=== PATIENT | male | born 1935 | race Caucasian/White ===

== ENCOUNTER 2016-06-13 09:04 | Inpatient (IN) | payer MEDICARE, OTHER ==
[2016-06-13] VITALS (7 sets, daily range): BP systolic 102–115; BP diastolic 61–79; PULSE 75–95; TEMP 36.2–36.6; O2SAT 90–95; Ht 175.3 cm; Wt 76.7 kg
[~2016-06-13] VITALS: Ht 175.3 cm; Wt 76.7 kg
[~2016-06-13 09:04] MED LIST: AMLO-110 PO; AMOX500C3 PO; ASPI81TA21 PO; CRS/10 PO; LISI-725 PO; METO-217 PO; PRLSR20 PO
[2016-06-13] MEDS ORDERED: ALBUT/IPRATROP 3MG/0.5MG NEB 3 ML VIAL INH STA (09:47)
[2016-06-13 09:57] LABS: BASO % 0.8 %; BASO ABS # 0.08 K/uL (0-0.2); COMPLETE YES; EOS % 0.5 %; HEMATOCRIT 40.7 % (42-52); IG% 0.3 %; LYMPH % 11.1 %; LYMPH ABS # 1.11 K/uL (1.2-3.4); MEAN CELL VOLUME 90.4 fL (80-100); MEAN CORPUSCULAR HEMOGLOBIN 31.3 pg (25-34); MEAN CORPUSCULAR HGB CONC 34.6 g/dl (32-36); MEAN PLATELET VOLUME 11.1 fL (7.4-10.4); MONO % 8.4 %; NEUT % 78.9 %; PLATELET COUNT 331 K/uL (130-400); WHITE BLOOD COUNT 9.97 K/uL (4.8-10.8)
[2016-06-13] MEDS ORDERED: METO1TAB69 PO (09:58)
[2016-06-13] MEDS ORDERED: WARF5TAB7 PO (09:58)
[2016-06-13 10:05] LABS: ALT/SGPT 20 U/L (12-78); BLOOD UREA NITROGEN 30 mg/dl (7-18); BUN/CREATININE RATIO 19.7 (10-20); CALCIUM 9.3 mg/dl (8.5-10.1); CARBON DIOXIDE 21 mmol/L (21-32); CHLORIDE 105 mmol/L (98-107); GLUCOSE 204 mg/dl (70-99); MAGNESIUM 1.7 mg/dl (1.8-2.4); POTASSIUM 4.1 mmol/L (3.5-5.1); SODIUM 138 mmol/L (136-145)
[2016-06-13 10:09] LABS: PARTIAL THROMBOPLASTIN RATIO 1.4; PROTHROMBIN TIME (PATIENT) 55.8 SECONDS (9.0-12.0)
[2016-06-13 10:10] LABS: ALB/GLOB RATIO 0.9 (0.9-2); ALKALINE PHOSPHATASE 116 U/L (45-117); AST/SGOT 21 U/L (15-37); INR 4.9 (0.9-1.1)
[2016-06-13] MEDS ORDERED: PIPERACILLIN/TAZOBACTAM 4.5 GM/100ML D5W IV STA (10:16)
[2016-06-13] MEDS ORDERED: FUROSEMIDE 40 MG/4 ML VIAL IV STA (10:16)
--- NOTE | 2016-06-13 10:18 | DIAGNOSTIC IMAGING REPORT ---
SINGLE VIEW CHEST CLINICAL HISTORY: Dyspnea. FINDINGS: An AP, portable, upright chest radiograph is compared to study dated 07/15/2014. The examination is degraded by portable technique and patient rotation. There is evidence of previous cardiac valve surgery. A 2-lead cardiac AICD is unchanged in position and partially obscures the left lower chest. Epicardial pacing leads are noted. The heart is enlarged and there is atherosclerotic calcification of the thoracic aorta. There is pulmonary vascular congestion with mild interstitial edema. There are small pleural effusions with bibasilar atelectasis. No pneumothorax is seen. The skeletal structures are osteopenic. The bony thorax is grossly intact. IMPRESSION: 1. Cardiomegaly and AICD with evidence of congestive failure and mild interstitial edema. 2. Small pleural effusions with bibasilar atelectasis. Electronically signed by: Jorden Matthews M.D. 06/13/2016 10:17 AM Dictated Date/Time: 06/13/2016 10:16 AM
[2016-06-13] MEDS ORDERED: NITROGLYCERIN 0.4 MG SL PER TAB CHARGE SL PRN (11:30)
[2016-06-13] MEDS ORDERED: ACETAMINOPHEN 325 MG TAB PO PRN (11:30)
[2016-06-13] MEDS ORDERED: ONDANSETRON INJ 2 MG/ML 2 ML VIAL IV PRN (11:30)
--- NOTE | 2016-06-13 11:39 | History and Physical ---
History & Physical Date & Time of Service: Jun 13, 2016 at 11:38 Chief Complaint: SOB Primary Care Physician: Jared Godoy PA-C History of Present Illness Source: patient Mr. 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 He states his pacemaker was adjusted 2 weeks ago and he started to notice the symptoms since then. He also denotes to have intermittent dry cough and noticed to have b/l leg swelling. Denies any history of orthopnea, PND , chest pain, palpitations, dizziness, fever, chills, change in bowel/bladder habits. He was found to have oxygen sats in 80s while in ED which improved with 2L nasal cannula. Past Medical/Surgical History Medical Problems: (1) Benign hypertension Status: Chronic (2) Chest pain Status: Resolved (3) Chronic congestive heart failure Status: Chronic (4) Hyperlipidemia Status: Chronic (5) mitral valve repair Status: Chronic PSH: 1. Mitral valve repair with triangular resection of P2 and placement of a 29- mm Rico ring by [facility] [address] [facility] in 2012. 2. Concomitant patent foramen ovale patch closure. 3. Colonoscopy. 4. Dual-chamber Medtronic permanent pacemaker placement. Family History FH: heart disease MOTHER Social History Smoking Status: Former Smoker (Quit many years ago) Drug Use: none Marital Status: Immunizations History of Influenza Vaccine: No History of Tetanus Vaccine?: No History of Pneumococcal: Unknown History of Hepatitis B Vaccine: No Allergies Coded Allergies: No Known Allergies (Unverified , 07/14/14) pt Home Medications Scheduled Amlodipine (Norvasc), 5 MG PO DAILY Amoxicillin (Amoxil), 2,000 MG PO DIRECTED Aspirin Enteric Coated (Ecotrin Or Generic), 81 MG PO DAILY Lisinopril (Zestril), 20 MG PO DAILY Metoprolol Succ (Toprol Xl) (Toprol-Xl ), 100 MG PO DAILY Omeprazole (Prilosec), 20 MG PO DAILY Rosuvastatin Calcium (Crestor), 10 MG PO DAILY Warfarin Sod (Jantoven), 5 MG PO DAILY Review of Systems See HPI for pertinent positives & negatives. A total of 10 systems reviewed and were otherwise negative. Physical Exam Vital Signs Date Time Temp Pulse Resp B/P Pulse Ox O2 Delivery O2 Flow Rate FiO2 06/13/16 10:50 90 Room Air 06/13/16 10:47 90 16 127/79 90 Room Air 06/13/16 09:37 91 Nasal Cannula 3.0 06/13/16 09:28 87 06/13/16 09:28 85 Room Air 06/13/16 09:28 36.7 90 25 122/81 84 Room Air 06/13/16 09:25 91 General Appearance: WD/WN, no apparent distress Head: normocephalic, atraumatic Eyes: normal inspection, PERRL, EOMI, sclerae normal ENT: normal ENT inspection, hearing grossly normal Neck: supple, no JVD, trachea midline Respiratory/Chest: chest non-tender, normal breath sounds, no respiratory distress, no accessory muscle use, + crackles Cardiovascular: regular rate, rhythm, no murmur, + pertinent finding (B/L trace leg edema) Abdomen/GI: normal bowel sounds, non tender, soft, no organomegaly Back: normal inspection, normal range of motion Extremities/Musculoskelatal: normal inspection, no calf tenderness, + pedal edema Neurologic/Psych: spanish medical interpreter II-XII nml as tested, no motor/sensory deficits, alert, normal mood/affect, normal reflexes, oriented x 3 Skin: normal color, warm/dry Lymphatic: no adenopathy Diagnostics Laboratory Results Results Past 24 Hours Test 06/13/16 08:30 06/13/16 11:26 06/13/16 11:36 Range/Units White Blood Count 9.97 4.8-10.8 K/uL Red Blood Count 4.50 4.7-6.1 M/uL Hemoglobin 14.1 14.0-18.0 g/dL Hematocrit 40.7 42-52 % Mean Corpuscular Volume 90.4 80-100 fL Mean Corpuscular Hemoglobin 31.3 25-34 pg Mean Corpuscular Hemoglobin Concent 34.6 32-36 g/dl Platelet Count 331 130-400 K/uL Mean Platelet Volume 11.1 7.4-10.4 fL Neutrophils (%) (Auto) 78.9 % Lymphocytes (%) (Auto) 11.1 % Monocytes (%) (Auto) 8.4 % Eosinophils (%) (Auto) 0.5 % Basophils (%) (Auto) 0.8 % Neutrophils # (Auto) 7.86 1.4-6.5 K/uL Lymphocytes # (Auto) 1.11 1.2-3.4 K/uL Monocytes # (Auto) 0.84 0.11-0.59 K/uL Eosinophils # (Auto) 0.05 0-0.5 K/uL Basophils # (Auto) 0.08 0-0.2 K/uL RDW Standard Deviation 48.3 36.4-46.3 fL RDW Coefficient of Variation 14.7 11.5-14.5 % Immature Granulocyte % (Auto) 0.3 % Immature Granulocyte # (Auto) 0.03 0.00-0.02 K/uL Prothrombin Time 55.8 9.0-12.0 SECONDS Prothromb Time International Ratio 4.9 0.9-1.1 Activated Partial Thromboplast Time 37.3 21.0-31.0 SECONDS Partial Thromboplastin Ratio 1.4 Sodium Level 138 136-145 mmol/L Potassium Level 4.1 3.5-5.1 mmol/L Chloride Level 105 98-107 mmol/L Carbon Dioxide Level 21 21-32 mmol/L Anion Gap 12.0 3-11 mmol/L Blood Urea Nitrogen 30 7-18 mg/dl Creatinine 1.50 0.60-1.40 mg/dl Est Creatinine Clear Calc Drug Dose 38.0 ml/min Estimated GFR () 49.5 Estimated GFR (Non- 42.7 BUN/Creatinine Ratio 19.7 10-20 Random Glucose 204 70-99 mg/dl Calcium Level 9.3 8.5-10.1 mg/dl Magnesium Level 1.7 1.8-2.4 mg/dl Total Bilirubin 2.9 0.2-1 mg/dl Aspartate Amino Transf (AST/SGOT) 21 15-37 U/L Alanine Aminotransferase (ALT/SGPT) 20 12-78 U/L Alkaline Phosphatase 116 45-117 U/L Troponin I < 0.015 0-0.045 ng/ml Pro-B-Type Natriuretic Peptide 51454 0-1800 pg/ml Total Protein 8.2 6.4-8.2 gm/dl Albumin 3.9 3.4-5.0 gm/dl Globulin 4.3 2.5-4.0 gm/dl Albumin/Globulin Ratio 0.9 0.9-2 Microbiology Results 06/13/16 Blood Culture, Received Pending 06/13/16 Blood Culture, Received Pending Diagnostic Radiology CXR: 1. Cardiomegaly and AICD with evidence of congestive failure and mild interstitial edema. 2. Small pleural effusions with bibasilar atelectasis. EKG Sinus rhythm with first degree AV block, frequent PVCs and occasional atrial pacing, and underlying RBBB Impression Assessment and Plan Acute Hypoxic respiratory failure Acute Decompensated Systolic heart failure Patient presented with SOB on exertion, leg swelling after pacemaker adjustment H/O Ischemic cardiomyopathy CXR:showed findings suggestive of CHF Start IV diuretics check ECHO, troponin Consult cardiology Monitor I/Os, daily weight Oxygen support Obtain pacemaker interrogation Continue Home meds Supratherapeutic INR: Hold coumadin for now Monitor INR Will resume when appropriate Elevated Cr levels: ? Underlying CKD Avoid Nephrotoxic agents Monitor renal function Cr levels would likely worsen with need for IV diuretics Will hold lisinopril if Cr levels worsen H/O Severe MR S/P repair with subsequent mitral stenosis Stable Continue home meds Check ECHO H/O PFO S/P repair H/O NSVT/P.afib, Sick sinus S/P Pacemaker Pacemaker interrogation Currently in sinus Monitor electrolytes Continue BB Coumadin held secondary to increased INR HTN: Stable Continue to monitor HLP: Continue statins DVT Px: SCDs INR supratherapeutic CODE STATUS: Full code DISPOSITION: Continue to monitor in Telemetry Advanced Directives Existing Living Will: Yes Existing Power of Airplane Pilot Supervisor: No VTE Prophylaxis VTE Risk Assessment Done? Y/N: Yes Risk Level: High
[2016-06-13] MEDS ORDERED: PNEUMOCOCCAL ADMINISTRATION CHARGE ONE (13:15)
[2016-06-13] MEDS ORDERED: PNEUMOCOCCAL POLYSACCHARIDES 25 MCG/0.5 ML VIAL/SYR IM. ONE (13:15)
[2016-06-13 13:30] LABS: INFLUENZA A PCR Neg for Influ A (NEG); INFLUENZA B PCR Neg for Influ B (NEG)
[2016-06-13] MEDS ORDERED: MAGNESIUM SULFATE 1GM / D5W 1 GM in PREMIXED IN D5W 100 ML IV ONE (14:00)
--- NOTE | 2016-06-13 14:15 | EMERGENCY ROOM VISIT NOTE ---
History Report prepared by Pam: Anna Mccoy Under the Supervision of: Dr. Jorden Pryor M.D. First contact with patient: 09:40 Chief Complaint: SHORTNESS OF BREATH Stated Complaint: SOB History of Present Illness The patient is a 80 year old male who presents to the Emergency Room with complaints of persistent shortness of breath over a week and a half. It is worse with exertion. The patient does not usually wear oxygen at home. Upon arrival, his oxygen saturation was as low as 84 on room air. He also complains of an occasional nonproductive cough. He reports that he has minimally increased leg swelling. The patient states that he has a monitor on his pacemaker and is in the process of having adjustments made. He states that his symptoms seemed to start when he had the monitor placed. The patient recently was taken off of Lisinopril because he was having dizziness. He does not have a history of pneumonia or heart failure. Denies fevers, chest pain, or other complaints. He is scheduled to see Jared Godoy of Cardiology tomorrow. He is unsure if he had a flu shot this year. Source of History: patient Onset: a week and a half ago Position: other (global) Quality: other (shortness of breath) Timing: other (persistent) Modifying Factors (Worsening): exertion Associated Symptoms: + cough (occasional, nonproductive), No chest pain, No fevers Note: Other symptoms: minimally increased leg swelling Review of Systems See HPI for pertinent positives & negatives. A total of 10 systems reviewed and were otherwise negative. Past Medical & Surgical Medical Problems: (1) Benign hypertension (2) Chest pain (3) Chronic congestive heart failure (4) Hyperlipidemia (5) mitral valve repair Family History No pertinent family history stated. Social History Smoking Status: Former Smoker Marital Status: Housing Status: lives with significant other Current/Historical Medications Scheduled Amlodipine (Norvasc), 5 MG PO DAILY Amoxicillin (Amoxil), 2,000 MG PO DIRECTED Aspirin Enteric Coated (Ecotrin Or Generic), 81 MG PO DAILY Lisinopril (Zestril), 20 MG PO DAILY Metoprolol Succ (Toprol Xl) (Toprol-Xl ), 100 MG PO DAILY Omeprazole (Prilosec), 20 MG PO DAILY Rosuvastatin Calcium (Crestor), 10 MG PO DAILY Warfarin Sod (Jantoven), 5 MG PO DAILY Allergies Coded Allergies: No Known Allergies (Unverified , 07/14/14) pt Physical Exam Vital Signs Date Time Temp Pulse Resp B/P Pulse Ox O2 Delivery O2 Flow Rate FiO2 06/13/16 10:50 90 Room Air 06/13/16 10:47 90 16 127/79 90 Room Air 06/13/16 09:37 91 Nasal Cannula 3.0 06/13/16 09:28 87 06/13/16 09:28 85 Room Air 06/13/16 09:28 36.7 90 25 122/81 84 Room Air 06/13/16 09:25 91 Physical Exam GENERAL: Patient is in no acute distress. HEENT: No acute trauma, normocephalic atraumatic, mucous membranes moist, no nasal congestion, no scleral icterus. NECK: No stridor, no adenopathy, no meningismus, trachea is midline. LUNGS: Crackles bilaterally, no wheezing, breath sounds diminished but equal. HEART: Without murmurs gallops or rubs, regular rate and rhythm. ABDOMEN: Soft, nontender, bowel sounds positive, no hernias, no peritonitis. EXTREMITIES: No cyanosis, mild bilateral pedal edema, full range of motion of all the joints without pain or difficulty, no signs for acute trauma. NEUROLOGIC: Oriented x 3, no acute motor or sensory deficits, no focal weakness. SKIN: No rash, no jaundice, no diaphoresis. Medical Decision & Procedures ER Provider Diagnostic Interpretation: Radiology results and stated below per my review and radiologist interpretation: SINGLE VIEW CHEST CLINICAL HISTORY: Dyspnea. FINDINGS: An AP, portable, upright chest radiograph is compared to study dated 07/15/2014. The examination is degraded by portable technique and patient rotation. There is evidence of previous cardiac valve surgery. A 2-lead cardiac AICD is unchanged in position and partially obscures the left lower chest. Epicardial pacing leads are noted. The heart is enlarged and there is atherosclerotic calcification of the thoracic aorta. There is pulmonary vascular congestion with mild interstitial edema. There are small pleural effusions with bibasilar atelectasis. No pneumothorax is seen. The skeletal structures are osteopenic. The bony thorax is grossly intact. IMPRESSION: 1. Cardiomegaly and AICD with evidence of congestive failure and mild interstitial edema. 2. Small pleural effusions with bibasilar atelectasis. Electronically signed by: Jorden Matthews M.D. 06/13/2016 10:17 AM Dictated Date/Time: 06/13/2016 10:16 AM Laboratory Results 06/13/16 08:30 Red Blood Count 4.50, Mean Corpuscular Volume 90.4, Mean Corpuscular Hemoglobin 31.3, Mean Corpuscular Hemoglobin Concent 34.6, Mean Platelet Volume 11.1, Neutrophils (%) (Auto) 78.9, Lymphocytes (%) (Auto) 11.1, Monocytes (%) (Auto) 8.4, Eosinophils (%) (Auto) 0.5, Basophils (%) (Auto) 0.8, Neutrophils # (Auto) 7.86, Lymphocytes # (Auto) 1.11, Monocytes # (Auto) 0.84, Eosinophils # (Auto) 0.05, Basophils # (Auto) 0.08 06/13/16 08:30 Test 06/13/16 08:30 06/13/16 11:15 White Blood Count 9.97 K/uL (4.8-10.8) Red Blood Count 4.50 M/uL (4.7-6.1) Hemoglobin 14.1 g/dL (14.0-18.0) Hematocrit 40.7 % (42-52) Mean Corpuscular Volume 90.4 fL (80-100) Mean Corpuscular Hemoglobin 31.3 pg (25-34) Mean Corpuscular Hemoglobin Concent 34.6 g/dl (32-36) Platelet Count 331 K/uL (130-400) Mean Platelet Volume 11.1 fL (7.4-10.4) Neutrophils (%) (Auto) 78.9 % Lymphocytes (%) (Auto) 11.1 % Monocytes (%) (Auto) 8.4 % Eosinophils (%) (Auto) 0.5 % Basophils (%) (Auto) 0.8 % Neutrophils # (Auto) 7.86 K/uL (1.4-6.5) Lymphocytes # (Auto) 1.11 K/uL (1.2-3.4) Monocytes # (Auto) 0.84 K/uL (0.11-0.59) Eosinophils # (Auto) 0.05 K/uL (0-0.5) Basophils # (Auto) 0.08 K/uL (0-0.2) RDW Standard Deviation 48.3 fL (36.4-46.3) RDW Coefficient of Variation 14.7 % (11.5-14.5) Immature Granulocyte % (Auto) 0.3 % Immature Granulocyte # (Auto) 0.03 K/uL (0.00-0.02) Prothrombin Time 55.8 SECONDS (9.0-12.0) Prothromb Time International Ratio 4.9 (0.9-1.1) Activated Partial Thromboplast Time 37.3 SECONDS (21.0-31.0) Partial Thromboplastin Ratio 1.4 Anion Gap 12.0 mmol/L (3-11) Est Creatinine Clear Calc Drug Dose 38.0 ml/min Estimated GFR () 49.5 Estimated GFR (Non- 42.7 BUN/Creatinine Ratio 19.7 (10-20) Calcium Level 9.3 mg/dl (8.5-10.1) Magnesium Level 1.7 mg/dl (1.8-2.4) Total Bilirubin 2.9 mg/dl (0.2-1) Aspartate Amino Transf (AST/SGOT) 21 U/L (15-37) Alanine Aminotransferase (ALT/SGPT) 20 U/L (12-78) Alkaline Phosphatase 116 U/L (45-117) Pro-B-Type Natriuretic Peptide 97322 pg/ml (0-1800) Total Protein 8.2 gm/dl (6.4-8.2) Albumin 3.9 gm/dl (3.4-5.0) Globulin 4.3 gm/dl (2.5-4.0) Albumin/Globulin Ratio 0.9 (0.9-2) Procalcitonin < 0.05 ng/mL (0-0.5) Influenza Type A (RT-PCR) Neg for Influ A (NEG) Influenza Type B (RT-PCR) Neg for Influ B (NEG) Laboratory results reviewed by me. Medications Administered Medications (Trade) Dose Ordered Sig/Genoveva Route Start Time Stop Time Status Last Admin Dose Admin Albuterol/ Ipratropium (Duoneb) 3 ml NOW STAT INH 06/13/16 09:47 06/13/16 09:50 DC 06/13/16 10:10 3 ML Furosemide (Lasix Inj) 40 mg NOW STAT IV 06/13/16 10:16 06/13/16 10:18 DC 06/13/16 11:04 40 MG Piperacillin Sod/ Tazobactam Sod (Zosyn Iv) 4.5 gm NOW STAT IV 06/13/16 10:16 06/13/16 10:18 DC 06/13/16 11:04 4.5 GM ECG Indication: SOB/dyspnea Rate (beats per minute): 87 Rhythm: sinus rhythm Findings: 1st degree AV block, PAC, PVC, RBBB, no acute ischemic change Comparison ECG Date: 07/14/14 Change: PACs and PVCs are now present ED Course 0945: The patient was evaluated in room A4. A complete history and physical exam was performed. Ordered DuoNeb 3 ml INH. 1016: Ordered Zosyn 4.5 gm IV, Lasix 40 mg IV. 1029: I discussed the case with CASSIDY [facility]. The patient will be evaluated for further management. 1052: Upon reexamination the patient is resting comfortably. I discussed results and treatment plan with the patient. He verbalizes agreement and understanding. The patient will be evaluated for further management. Medical Decision Differential includes but is not limited to CHF, pneumonia, bronchitis, cardiac ischemia, anemia, electrolyte imbalance, PE. There is no leukocytosis or concerning anemia. Renal panel testing does not show kidney failure. Magnesium was low at 1.7. There was no hepatitis. INR was over the therapeutic window for someone using Coumadin. Blood cultures are pending. Influenza testing was negative. EKG shows a sinus rhythm, no acute ischemia. Cardiac enzyme testing times one is not consistent with acute cardiac injury. Chest x-ray shows CHF, no pneumonia or pneumothorax. BNP was quite elevated consistent with fluid overload. The patient was given a DuoNeb, IV Zosyn. He was given IV Lasix. The patient requires O2 supplementation to prevent hypoxia. He is in heart failure and has a low magnesium level. He requires diuresis and some electrolyte replacement. Admission/observation is warranted. I spoke to the patient and case management. The on-call hospitalist was consulted. Consults Time Called: [phone] Consulting Physician: [facility]ASSIDY [facility] Returned Call: [phone] I discussed the case with her. The patient will be evaluated for further management. Impression Primary Impression: Congestive heart failure Additional Impressions: SOB (shortness of breath) on exertion Hypoxia Scribe Attestation The scribe's documentation has been prepared under my direction and personally reviewed by me in its entirety. I confirm that the note above accurately reflects all work, treatment, procedures, and medical decision making performed by me. Departure Information Dispostion Being Evaluated By Hospitalist Referrals Merlyn Kingsley M.D. (PCP) Patient Instructions My [facility] Problem Qualifiers
--- NOTE | 2016-06-13 16:42 | CARDIOLOGY CONSULTATION ---
DATE OF CONSULTATION: 06/13/2016 CONSULTATION REQUESTED BY: Dr. Camargo. REASON FOR CONSULTATION: Acute decompensated LV systolic heart failure. HISTORY OF PRESENT ILLNESS: Mr. Huizar is a very pleasant yet cardiovascularly complex 80-year-old gentleman who normally follows with Jared Godoy of our cardiology practice. He presented to the [facility] Emergency Department on 06/13/2016 with a complaint of worsening dyspnea on exertion. The patient states his symptoms started approximately 2 weeks ago after pacemaker adjustment. He states that ever since then he has been having difficulty walking any significant distance without even having to stop and catch his breath. This is very unusual for the patient, who despite his age, remains very physically active and usually has no limitations whatsoever. He denies any other symptoms of chest pain, palpitations, lightheadedness, dizziness, or syncope. He states he has been having some puffiness around his ankles. Otherwise, he has been compliant with all of his medications and states his diet has not changed and he has not increased any salt intake. He has had no orthopnea or no episodes of diarrhea. PAST SURGICAL HISTORY: 1. Mitral valve repair with triangular resection of P2 and placement of a 29-mm Rico ring by [facility] in 2012. 2. Concomitant patent foramen ovale patch closure. 3. Colonoscopy. 4. Dual-chamber Medtronic permanent pacemaker placement. MEDICAL ILLNESSES: 1. Severe mitral regurgitation with a flail P2 leaflet, status post repair with subsequent mitral stenosis. 2. PFO, status post repair. 3. Severe mitral stenosis. 4. Nonischemic cardiomyopathy, EF 20%-25%. 5. Frequent premature ventricular contractions. 6. Nonsustained supraventricular tachycardia, recently found on pacemaker interrogation. 7. Sick sinus syndrome, status post permanent pacemaker placement. 8. Hypertension. 9. Dyslipidemia. 10. Arthritis. 11. Paroxysmal atrial fibrillation. FAMILY HISTORY: Noncontributory. SOCIAL HISTORY: The patient has a very remote tobacco use history, quit in 1971. He drinks 2 beers a day. Denies any recreational drug use. REVIEW OF SYSTEMS: As per HPI, all other review of systems reviewed and negative at this time. ALLERGIES: No known drug allergies. MEDICATIONS AN OUTPATIENT: 1. Toprol-XL 100 mg daily. 2. Amlodipine 5 mg daily. 3. Coumadin as directed by the Coumadin clinic. 4. Lisinopril 20 mg daily. 5. Crestor 10 mg daily. 6. Amoxicillin prior to dental procedures. 7. Aspirin 81 mg daily. PHYSICAL EXAMINATION: VITALS: Temperature 36.6, pulse 77, respiratory rate 12, and blood pressure 102/61. GENERAL: Awake, alert, and oriented x3, in no acute distress. HEENT: Normocephalic and atraumatic. Pupils equal, round, and reactive to light and accommodation. Extraocular muscles intact. Anicteric sclerae. Moist mucous membranes. NECK: No JVD and no bruit. CARDIOVASCULAR: Regular, but distant. Unable to appreciate murmurs, rubs or gallops. PULMONARY: Decreased air movement in the bilateral bases with scant crackles. No rales or rhonchi. ABDOMEN: Bowel sounds x4, soft. No rebound, guarding, or tenderness. No organomegaly. EXTREMITIES: No clubbing or cyanosis. +1 pedal pulses bilaterally with +1 bilateral lower extremity pitting edema. SKIN: Warm and dry. Device interrogation today reveals an appropriately functioning dual-chamber permanent pacemaker placement with nonsustained runs of nonsustained supraventricular tachycardia. A 12-lead EKG performed in the Emergency Department independently reviewed at this time, shows sinus rhythm with first degree AV block, frequent PVCs and occasional atrial pacing, and underlying right bundle-branch block. Chest x-ray was read as cardiomegaly with an AICD and evidence of congestive heart failure and mild interstitial edema. LABORATORY STUDIES OF SIGNIFICANCE: Sodium 138, potassium 4.1, BUN 30, and creatinine 1.5. ProBNP of 23,000. IMPRESSION: 1. Acute decompensated LV systolic heart failure. 2. Nonischemic cardiomyopathy. 3. Mitral valve repair with subsequent mitral stenosis. 4. Paroxysmal atrial fibrillation. 5. Paroxysmal supraventricular tachycardia. RECOMMENDATIONS: It was my pleasure to see Mr. Huizar in consultation today. I believe that the most prudent course of action at this point would be to aggressively diurese the patient to relieve the volume overload and improve his symptoms. He has been having more frequent paroxysmal supraventricular tachycardic runs as of late upon his device interrogation; however, I doubt that that is the nidus for his decompensation. So, his outpatient doses of metoprolol, amlodipine, lisinopril, aspirin and Crestor will be continued. His electrolytes should be monitored and repleted as necessary and I will follow him closely with you. FLAVIO
[2016-06-13] MEDS: FUROSEMIDE INJ 40 MG in SYRINGE 0 ML IV SCH (17:10)
[2016-06-14] VITALS (9 sets, daily range): BP systolic 98–125; BP diastolic 63–83; PULSE 68–88; TEMP 36.3–37.5; O2SAT 91–98
[2016-06-14 06:32] LABS: BASO % 0.7 %; BASO ABS # 0.06 K/uL (0-0.2); COMPLETE YES; HEMATOCRIT 35.3 % (42-52); LYMPH % 20.1 %; LYMPH ABS # 1.61 K/uL (1.2-3.4); MEAN CELL VOLUME 89.6 fL (80-100); MEAN CORPUSCULAR HGB CONC 34.6 g/dl (32-36); MEAN PLATELET VOLUME 10.5 fL (7.4-10.4); MONO % 11.1 %; NEUT % 65.1 %; PLATELET COUNT 253 K/uL (130-400); RED BLOOD COUNT 3.94 M/uL (4.7-6.1); WHITE BLOOD COUNT 8.02 K/uL (4.8-10.8)
[2016-06-14 06:51] LABS: PROTHROMBIN TIME (PATIENT) 53.4 SECONDS (9.0-12.0)
[2016-06-14 06:57] LABS: INR 4.7 (0.9-1.1)
[2016-06-14 07:12] LABS: BUN/CREATININE RATIO 21.6 (10-20); CALCIUM 8.4 mg/dl (8.5-10.1); CREATININE 1.5 mg/dl (0.60-1.40); MAGNESIUM 1.9 mg/dl (1.8-2.4); POTASSIUM 3.4 mmol/L (3.5-5.1)
[2016-06-14] MEDS: LISINOPRIL 20 MG TAB PO SCH (08:28)
[2016-06-14] MEDS: AMLODIPINE BESYLATE 5 MG TAB PO SCH (08:28)
[2016-06-14] MEDS: ASPIRIN 81 MG ECTAB PO SCH (08:28)
[2016-06-14] MEDS: METOPROLOL SUCC 50MG EXT REL TAB PO SCH (08:29)
[2016-06-14] MEDS: FUROSEMIDE INJ 40 MG in SYRINGE 0 ML IV SCH ×2 (08:48→17:45)
[2016-06-14] MEDS ORDERED: FUROSEMIDE INJ 40 MG in SYRINGE 0 ML IV SCH (09:00)
[2016-06-14] MEDS ORDERED: POTASSIUM CHLORIDE 10 MEQ TABCR PO STA (09:27)
[2016-06-14] MEDS ORDERED: POTASSIUM CITRATE 10 MEQ TAB PO ONE (10:00)
--- NOTE | 2016-06-14 10:11 | PROGRESS NOTE ---
DATE: 06/14/2016 FOLLOWUP VISIT SUBJECTIVE: Mr. Huizar is an 80-year-old male who is status post mitral valve repair in 2012 and has nonischemic cardiomyopathy. He is status post dual-chamber pacemaker. He was admitted with congestive heart failure. Prior to his admission, his pacemaker had been interrogated and found to have nonsustained supraventricular tachycardia. A ZIO patch was placed which he is currently wearing and is scheduled to come off on Saturday. These arrhythmias could be either paroxysmal atrial fibrillation or possibly AVRT. Over the past 24 hours, he has been diuresed and actually feels much improved. OBJECTIVE: GENERAL: He is alert and oriented, in no acute distress. VITAL SIGNS: Blood pressure is 117/76, pulse is regular at 75. He is afebrile. HEENT: He is normocephalic. Pupils are equal and reactive to light. Extraocular muscles are intact bilaterally. NECK: Neck veins are flat. Carotids have good upstrokes bilaterally without bruits. Thyroid is nonpalpable. RESPIRATORY: Breath sounds equal bilaterally and clear to auscultation. CARDIOVASCULAR: Heart has a regular rhythm. Normal S1, S2. No S3, S4. No cardiac rubs or murmurs. GASTROINTESTINAL: Abdomen is soft, nontender, without organomegaly. EXTREMITIES: Free of edema, digit clubbing, or cyanosis. NEUROLOGIC: Grossly intact. SKIN: Warm to touch. LYMPH NODES: Negative to palpation. LABORATORY DATA: Hemoglobin is 12.2. Potassium is 3.4. Creatinine is 1.5. Cardiac markers are negative. EKG on admission reveals sinus rhythm with a right bundle-branch block. IMPRESSION: 1. Decompensated systolic heart failure. 2. Status post mitral valve repair. 3. History of nonischemic cardiomyopathy with an estimated left ventricular ejection fraction of 20-25%. 4. Nonsustained supraventricular tachycardia recently found on pacemaker interrogation. 5. Permanent pacemaker for sick sinus syndrome. 6. History of paroxysmal atrial fibrillation. RECOMMENDATIONS: I would continue to treat the patient for his decompensated congestive heart failure. Unless he has a sustained arrhythmia while in the hospital, I would recommend that he just complete his ZIO patch monitoring and we will follow up on any arrhythmias as an outpatient. I will supplement his potassium which is low today due to the diuresis.
[2016-06-14] MEDS: PANTOprazole SOD 40 MG TAB PO SCH (10:18)
[2016-06-14] MEDS: ROSUVASTATIN CALCIUM 10 MG TAB PO SCH (10:19)
--- NOTE | 2016-06-14 12:35 | ECHOCARDIOGRAM REPORT ---
*NOTICE TO RECEIVING REPUBLICAN AGENCY This information is strictly Confidential and protected under [place] law. [place] law prohibits you from making any further disclosure of this information unless further disclosure is expressly permitted by the written consent of the person to whom it pertains or is authorized by law. A general authorization for the release of medical or other information is not sufficient for this purpose. Hospital accepts no responsibility if the information is made available to any other person, INCLUDING THE PATIENT. Interpretation Summary * Name: JUDAH SHELDON Study Date: 06/14/2016 06:56 AM BP: 115/79 mmHg * Patient Location: [facility]\S\N288\S\1 HR: 95 * : 1935 (M/d/yyyy) Gender: Male Height: 69 in * Age: 80 yrs Ethnicity: [place] Weight: 168 lb * Ordering Physician: Handy Camargo * Performed By: Tracy Pelayo RDCS * * Reason For Study: CHF * BSA: 1.9 m2 * -- Conclusions -- * Aortic valve sclerosis mild, without significant aortic valvular stenosis. * The left ventricle is moderately dilated. * Left ventricular systolic function is severely reduced. * Ejection Fraction = 25-30%. * The right ventricle is moderately dilated. * The right ventricular systolic function is moderately reduced. * The left atrium is moderately dilated. * The right atrium is moderately dilated. * An annuloplasty ring is noted in the mitral position. * There is mild mitral stenosis. * Significant mitral regurgitation is absent. * There is moderate tricuspid regurgitation. Procedure Details * A complete two-dimensional transthoracic echocardiogram was performed (2D, M-mode, Doppler and color flow Doppler). Left Ventricle * The left ventricle is moderately dilated. * There is global thinning of the left ventricular trevizo. * Left ventricular systolic function is severely reduced. * Ejection Fraction = 25-30%. Right Ventricle * The right ventricle is moderately dilated. * There is a pacemaker lead in the right ventricle. * The right ventricular systolic function is moderately reduced. Atria * The left atrium is moderately dilated. * The right atrium is moderately dilated. * The interatrial septum is intact with no evidence for an atrial septal defect. Mitral Valve * The mitral valve leaflets appear thickened, but open well. * There is mild mitral stenosis. * Significant mitral regurgitation is absent. * An annuloplasty ring is noted in the mitral position. Tricuspid Valve * The tricuspid valve leaflets are thickened and/or calcified, but open well. * There is moderate tricuspid regurgitation. Aortic Valve * Aortic valve sclerosis mild, without significant aortic valvular stenosis. * The aortic valve is trileaflet. * Trace aortic regurgitation. Pulmonic Valve * The pulmonic valve is not well visualized. * Mild pulmonic valvular regurgitation. Great Vessels * The aortic root and proximal ascending aorta are normal sized. Pericardium/Pleural * There is no pericardial effusion. MMode 2D Measurements and Calculations IVSd 1.0 cm LVIDd 5.5 cm LVIDs 4.6 cm LVPWd 0.93 cm IVS/LVPW 1.1 FS 16.0 % EDV(Teich) 146.8 ml ESV(Teich) 97.9 ml EF(Teich) 33.3 % EDV(cubed) 165.4 ml ESV(cubed) 98.0 ml EF(cubed) 40.7 % LV mass(C)d 208.3 grams LV mass(C)dI 108.6 grams/m\S\2 CO(Teich) 3.3 l/min CI(Teich) 1.7 l/min/m\S\2 SV(Teich) 48.9 ml SI(Teich) 25.5 ml/m\S\2 CO(cubed) 4.5 l/min CI(cubed) 2.4 l/min/m\S\2 SV(cubed) 67.4 ml SI(cubed) 35.1 ml/m\S\2 ACS 1.5 cm asc Aorta Diam 3.0 cm Ao Arch Diam (Proximal trans.) 2.9 cm LVOT diam 2.0 cm LVOT area 3.1 cm\S\2 LVAd ap4 31.0 cm\S\2 LVLd ap4 7.8 cm EDV(MOD-sp4) 102.0 ml LVAs ap4 26.4 cm\S\2 LVLs ap4 7.5 cm ESV(MOD-sp4) 79.0 ml EF(MOD-sp4) 22.5 % LVAd ap2 32.3 cm\S\2 LVLd ap2 8.4 cm EDV(MOD-sp2) 102.0 ml LVAs ap2 24.8 cm\S\2 LVLs ap2 7.3 cm ESV(MOD-sp2) 69.0 ml EF(MOD-sp2) 32.4 % CO(MOD-sp4) 1.5 l/min CI(MOD-sp4) 0.80 l/min/m\S\2 SV(MOD-sp4) 23.0 ml SI(MOD-sp4) 12.0 ml/m\S\2 CO(MOD-sp2) 2.2 l/min CI(MOD-sp2) 1.2 l/min/m\S\2 SV(MOD-sp2) 33.0 ml SI(MOD-sp2) 17.2 ml/m\S\2 Doppler Measurements and Calculations MV E max rhina 164.5 cm/sec MV A max rhina 112.4 cm/sec MV E/A 1.5 MV V2 max 168.1 cm/sec MV max PG 11.3 mmHg MV V2 mean 112.1 cm/sec MV mean PG 5.7 mmHg MV V2 VTI 38.6 cm Ao V2 max 86.2 cm/sec Ao max PG 3.0 mmHg Ao max PG (full) 1.2 mmHg KALEB(V,A) 2.4 cm\S\2 KALEB(V,D) 2.4 cm\S\2 LV V1 max PG 1.8 mmHg LV V1 max 66.2 cm/sec MR max rhina 371.0 cm/sec MR max PG 55.1 mmHg MR mean rhina 301.2 cm/sec MR mean PG 38.8 mmHg MR VTI 133.6 cm PA V2 max 39.1 cm/sec PA max PG 0.61 mmHg PA acc slope 280.4 cm/sec\S\2 PA acc time 0.12 sec PI max rhina 198.6 cm/sec PI max PG 15.8 mmHg PI dec slope 61.6 cm/sec\S\2 PI P1/2t 944.0 msec TR max rhina 284.7 cm/sec PA pr(Accel) 23.5 mmHg
--- NOTE | 2016-06-14 14:53 | Progress Note ---
Internal Med Progress Note Date of Service: Jun 14, 2016. Provider Documentation: SUBJECTIVE: Patient is seen and examined at bedside. States his SOB is much improved. Denies any chest pain, dizziness, palpitations. Offers no other complaints. Had an episode of NSVT today. OBJECTIVE: Vital Signs-as noted below General Appearance: WD/WN, no apparent distress Head: normocephalic, atraumatic Eyes: normal inspection, PERRL, EOMI, sclerae normal ENT: normal ENT inspection, hearing grossly normal Neck: supple, no JVD, trachea midline Respiratory/Chest: normal breath sounds, minimal creps, no accessory muscle use Cardiovascular: regular rate, rhythm, no murmur, + pertinent finding (B/L trace leg edema) Abdomen/GI: normal bowel sounds, non tender, soft, no organomegaly Back: normal inspection, normal range of motion Extremities/Musculoskelatal: normal inspection, no calf tenderness, + pedal edema 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 ASSESSMENT & PLAN: Acute Hypoxic respiratory failure Acute Decompensated Systolic heart failure Patient presented with SOB on exertion, leg swelling after pacemaker adjustment H/O Ischemic cardiomyopathy CXR:showed findings suggestive of CHF Continue IV diuretics troponin X2: negative Appreciate cardiology input Monitor I/Os, daily weight Oxygen support PRN Obtain pacemaker interrogation: NSVTs Continue Home meds ECHO: EF:25-30% ZIO patch monitoring to be discontinued on Saturday Supratherapeutic INR: Continue to hold coumadin Monitor INR:4.7 today Will resume when appropriate Elevated Cr levels: ? Underlying CKD Avoid Nephrotoxic agents Monitor renal function Cr levels would likely worsen with need for IV diuretics Will hold lisinopril if Cr levels worsen: currently stable Hypokalemia: Will replace and monitor Mag levels:wnl H/O Severe MR S/P repair with subsequent mitral stenosis Stable Continue home meds ECHO results as below H/O PFO S/P repair H/O NSVT/P.afib, Sick sinus S/P Pacemaker Pacemaker interrogation Currently in sinus Monitor electrolytes Continue BB Coumadin held secondary to increased INR HTN: Stable Continue to monitor HLP: Continue statins DVT Px: SCDs INR supratherapeutic CODE STATUS: Full code DISPOSITION: Continue to monitor in Telemetry PROCEDURES: ECHO: * Aortic valve sclerosis mild, without significant aortic valvular stenosis. * The left ventricle is moderately dilated. * Left ventricular systolic function is severely reduced. * Ejection Fraction = 25-30%. * The right ventricle is moderately dilated. * The right ventricular systolic function is moderately reduced. * The left atrium is moderately dilated. * The right atrium is moderately dilated. * An annuloplasty ring is noted in the mitral position. * There is mild mitral stenosis. * Significant mitral regurgitation is absent. * There is moderate tricuspid regurgitation. Vital Signs: Date Time Temp Pulse Resp B/P Pulse Ox O2 Delivery O2 Flow Rate FiO2 06/14/16 12:00 Room Air 06/14/16 11:46 81 22 106/69 96 74 98/63 06/14/16 11:26 36.3 70 18 105/63 92 06/14/16 07:59 36.5 75 20 117/76 96 Nasal Cannula 2.0 06/14/16 07:55 95 Nasal Cannula 2.0 06/14/16 04:15 Nasal Cannula 06/14/16 00:05 Nasal Cannula 06/13/16 23:17 36.3 75 18 114/76 94 Room Air 06/13/16 20:00 95 Nasal Cannula 2.0 06/13/16 19:40 36.2 81 18 104/67 91 Nasal Cannula 2.0 06/13/16 16:00 95 Nasal Cannula 2.0 06/13/16 15:18 36.6 77 18 102/61 95 Nasal Cannula 2.0 Lab Results: Results Past 24 Hours Test 06/13/16 17:10 06/14/16 05:55 Range/Units Troponin I < 0.015 0-0.045 ng/ml White Blood Count 8.02 4.8-10.8 K/uL Red Blood Count 3.94 4.7-6.1 M/uL Hemoglobin 12.2 14.0-18.0 g/dL Hematocrit 35.3 42-52 % Mean Corpuscular Volume 89.6 80-100 fL Mean Corpuscular Hemoglobin 31.0 25-34 pg Mean Corpuscular Hemoglobin Concent 34.6 32-36 g/dl Platelet Count 253 130-400 K/uL Mean Platelet Volume 10.5 7.4-10.4 fL Neutrophils (%) (Auto) 65.1 % Lymphocytes (%) (Auto) 20.1 % Monocytes (%) (Auto) 11.1 % Eosinophils (%) (Auto) 3.0 % Basophils (%) (Auto) 0.7 % Neutrophils # (Auto) 5.22 1.4-6.5 K/uL Lymphocytes # (Auto) 1.61 1.2-3.4 K/uL Monocytes # (Auto) 0.89 0.11-0.59 K/uL Eosinophils # (Auto) 0.24 0-0.5 K/uL Basophils # (Auto) 0.06 0-0.2 K/uL RDW Standard Deviation 47.5 36.4-46.3 fL RDW Coefficient of Variation 14.6 11.5-14.5 % Immature Granulocyte % (Auto) 0.0 % Immature Granulocyte # (Auto) 0.00 0.00-0.02 K/uL Prothrombin Time 53.4 9.0-12.0 SECONDS Prothromb Time International Ratio 4.7 0.9-1.1 Sodium Level 141 136-145 mmol/L Potassium Level 3.4 3.5-5.1 mmol/L Chloride Level 104 98-107 mmol/L Carbon Dioxide Level 27 21-32 mmol/L Anion Gap 10.0 3-11 mmol/L Blood Urea Nitrogen 32 7-18 mg/dl Creatinine 1.50 0.60-1.40 mg/dl Est Creatinine Clear Calc Drug Dose 38.0 ml/min Estimated GFR () 49.5 Estimated GFR (Non- 42.7 BUN/Creatinine Ratio 21.6 10-20 Random Glucose 97 70-99 mg/dl Calcium Level 8.4 8.5-10.1 mg/dl Magnesium Level 1.9 1.8-2.4 mg/dl Pro-B-Type Natriuretic Peptide 57667 0-1800 pg/ml
[2016-06-14] MEDS ORDERED: POTASSIUM CHLORIDE 20 MEQ TABCR PO SCH (21:00)
[2016-06-15 03:28] VITALS: BP 106/69; PULSE 90; TEMP 36.3; O2SAT 94
--- NOTE | 2016-06-15 07:20 | Clinical Documentation Query ---
CLINICAL DOCUMENTATION QUERY 80-y/o male who presents with acute systolic CHF. H&P and daily progress notes note an elevated creatinine questionably due to CKD. Documenting the stage of CKD will improve data integrity and will help clarify vague terms such as "renal insufficiency" or "chronic renal failure." In your clinical opinion is this patient being managed for: ( x ) Likely CKD stage 3 ( ) Other explanation of clinical findings (Please Explain) ( ) Unable to determine (Please Define) ( ) Need to Discuss ( ) Not Agree The medical record reflects the following clinical findings, treatment, and risk factors. Clinical Indicators: As above. BUN 30, Creatinine 1.50, GFR 42.7, Treatment: daily PRP's, cautious use of Lasix Risk Factors: Age, Please clarify and document your clinical opinion in the progress notes and discharge summary. Terms such as "probable", "suspected", "likely", "questionable", "possible", or "still to be ruled out" are acceptable. IF IN AGREEMENT, YOU MUST DOCUMENT ABOVE DIAGNOSTIC STATEMENT IN DAILY PROGRESS NOTES AND DISCHARGE SUMMARY. This document is not part of the patient's record. The stages of CKD according to the [employer] are as follows: Stage I: GFR >90 Stage II: GFR 60-89 Stage III: GFR 30-59 Stage IV: GFR 15-29 Stage V: GFR <15 Thank You, Elier Pepper, RN [phone]
[2016-06-15 07:31] VITALS: BP 117/75; PULSE 71; TEMP 36.7; O2SAT 95
[2016-06-15 07:49] VITALS: O2SAT 95
[2016-06-15 08:01] LABS: INR 3.4 (0.9-1.1); PROTHROMBIN TIME (PATIENT) 37.7 SECONDS (9.0-12.0)
[2016-06-15] MEDS: ROSUVASTATIN CALCIUM 10 MG TAB PO SCH (08:20)
[2016-06-15] MEDS: FUROSEMIDE INJ 40 MG in SYRINGE 0 ML IV SCH (08:20)
[2016-06-15] MEDS: PANTOprazole SOD 40 MG TAB PO SCH (08:21)
[2016-06-15] MEDS: AMLODIPINE BESYLATE 5 MG TAB PO SCH (08:21)
[2016-06-15] MEDS: LISINOPRIL 20 MG TAB PO SCH (08:22)
[2016-06-15] MEDS: ASPIRIN 81 MG ECTAB PO SCH (08:22)
[2016-06-15] MEDS: METOPROLOL SUCC 50MG EXT REL TAB PO SCH (08:22)
[2016-06-15 08:23] LABS: BUN/CREATININE RATIO 22.4 (10-20); CALCIUM 8.9 mg/dl (8.5-10.1); CREATININE 1.4 mg/dl (0.60-1.40); MAGNESIUM 1.8 mg/dl (1.8-2.4); POTASSIUM 3.3 mmol/L (3.5-5.1)
[2016-06-15 10:27] LABS: BASO % 0.8 %; BASO ABS # 0.06 K/uL (0-0.2); COMPLETE YES; EOS % 4.3 %; HEMATOCRIT 37.4 % (42-52); IG% 0.1 %; LYMPH % 22.6 %; LYMPH ABS # 1.64 K/uL (1.2-3.4); MEAN CELL VOLUME 90.1 fL (80-100); MEAN CORPUSCULAR HEMOGLOBIN 30.6 pg (25-34); MEAN PLATELET VOLUME 10.8 fL (7.4-10.4); MONO % 10.8 %; NEUT % 61.4 %; PLATELET COUNT 254 K/uL (130-400); RED BLOOD COUNT 4.15 M/uL (4.7-6.1); WHITE BLOOD COUNT 7.25 K/uL (4.8-10.8)
[2016-06-15] MEDS ORDERED: POTASSIUM CHLORIDE 10 MEQ TABCR PO ONE (10:30)
--- NOTE | 2016-06-15 11:09 | Progress Note ---
Internal Med Progress Note Date of Service: Jun 15, 2016. Provider Documentation: SUBJECTIVE: Patient is seen and examined at bedside. Feels well. States SOB has resolved. Denies any chest pain, dizziness, palpitations. Offers no other complaints. Eager to get discharged. OBJECTIVE: Vital Signs-as noted below General Appearance: WD/WN, no apparent distress Head: normocephalic, atraumatic Eyes: normal inspection, PERRL, EOMI, sclerae normal ENT: normal ENT inspection, hearing grossly normal Neck: supple, no JVD, trachea midline Respiratory/Chest: normal breath sounds, minimal creps, no accessory muscle use Cardiovascular: regular rate, rhythm, no murmur, + pertinent finding (B/L trace leg edema) Abdomen/GI: normal bowel sounds, non tender, soft, no organomegaly Back: normal inspection, normal range of motion Extremities/Musculoskelatal: normal inspection, no calf tenderness, + pedal edema 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 ASSESSMENT & PLAN: Acute Hypoxic respiratory failure Acute Decompensated Systolic heart failure Patient presented with SOB on exertion, leg swelling after pacemaker adjustment H/O Ischemic cardiomyopathy CXR:showed findings suggestive of CHF S/P IV diuretics >>>switched to PO lasix troponin X2: negative Appreciate cardiology input Monitor I/Os, daily weight Oxygen support PRN: saturating well on RA Pacemaker interrogation: NSVTs Continue Home meds ECHO: EF:25-30% ZIO patch monitoring to be discontinued on Saturday Supratherapeutic INR: Continue to hold coumadin Monitor INR:4.9 >>.4.7>..3.4 Takes 2.5 mg on sat/Sat/Sat/Sat and 5mg on other days Needs PT/INR checked on Saturday to dose Coumadin accordingly Elevated Cr levels: ? Underlying CKD Cr levels improved Avoid Nephrotoxic agents Monitor renal function Hypokalemia: Secondary to IV diuretics Will replace and monitor Mag levels:wnl H/O Severe MR S/P repair with subsequent mitral stenosis Stable Continue home meds ECHO results as below H/O PFO S/P repair H/O NSVT/P.afib, Sick sinus S/P Pacemaker Pacemaker interrogation Currently in sinus Monitor electrolytes Continue BB Coumadin held secondary to increased INR HTN: Stable Continue to monitor HLP: Continue statins DVT Px: SCDs INR supratherapeutic CODE STATUS: Full code DISPOSITION: Plan to discharge home today Follow up with in 1 week (Please call for appointment) Follow up with cardiology Ira Colby PA-C on 06/21/16 in [facility] office AT 2:45 PROCEDURES: ECHO: * Aortic valve sclerosis mild, without significant aortic valvular stenosis. * The left ventricle is moderately dilated. * Left ventricular systolic function is severely reduced. * Ejection Fraction = 25-30%. * The right ventricle is moderately dilated. * The right ventricular systolic function is moderately reduced. * The left atrium is moderately dilated. * The right atrium is moderately dilated. * An annuloplasty ring is noted in the mitral position. * There is mild mitral stenosis. * Significant mitral regurgitation is absent. * There is moderate tricuspid regurgitation. Vital Signs: Date Time Temp Pulse Resp B/P Pulse Ox O2 Delivery O2 Flow Rate FiO2 06/15/16 07:49 95 Room Air 06/15/16 07:31 36.7 71 20 117/75 95 06/15/16 04:00 Room Air 06/15/16 03:28 36.3 90 18 106/69 94 06/15/16 00:00 Room Air 06/14/16 23:10 36.6 70 16 125/83 91 Room Air 06/14/16 20:22 36.4 68 16 103/63 94 Room Air 06/14/16 20:00 97 Room Air 06/14/16 20:00 97 Room Air 06/14/16 16:00 96 Room Air 06/14/16 16:00 37.5 72 18 119/74 97 Room Air 06/14/16 16:00 96 Room Air 06/14/16 12:00 Room Air 06/14/16 11:46 81 22 106/69 96 74 98/63 06/14/16 11:26 36.3 70 18 105/63 92 Lab Results: Results Past 24 Hours Test 06/15/16 07:17 Range/Units White Blood Count 7.25 4.8-10.8 K/uL Red Blood Count 4.15 4.7-6.1 M/uL Hemoglobin 12.7 14.0-18.0 g/dL Hematocrit 37.4 42-52 % Mean Corpuscular Volume 90.1 80-100 fL Mean Corpuscular Hemoglobin 30.6 25-34 pg Mean Corpuscular Hemoglobin Concent 34.0 32-36 g/dl Platelet Count 254 130-400 K/uL Mean Platelet Volume 10.8 7.4-10.4 fL Neutrophils (%) (Auto) 61.4 % Lymphocytes (%) (Auto) 22.6 % Monocytes (%) (Auto) 10.8 % Eosinophils (%) (Auto) 4.3 % Basophils (%) (Auto) 0.8 % Neutrophils # (Auto) 4.45 1.4-6.5 K/uL Lymphocytes # (Auto) 1.64 1.2-3.4 K/uL Monocytes # (Auto) 0.78 0.11-0.59 K/uL Eosinophils # (Auto) 0.31 0-0.5 K/uL Basophils # (Auto) 0.06 0-0.2 K/uL RDW Standard Deviation 47.6 36.4-46.3 fL RDW Coefficient of Variation 14.6 11.5-14.5 % Immature Granulocyte % (Auto) 0.1 % Immature Granulocyte # (Auto) 0.01 0.00-0.02 K/uL Prothrombin Time 37.7 9.0-12.0 SECONDS Prothromb Time International Ratio 3.4 0.9-1.1 Sodium Level 141 136-145 mmol/L Potassium Level 3.3 3.5-5.1 mmol/L Chloride Level 101 98-107 mmol/L Carbon Dioxide Level 27 21-32 mmol/L Anion Gap 13.0 3-11 mmol/L Blood Urea Nitrogen 31 7-18 mg/dl Creatinine 1.40 0.60-1.40 mg/dl Est Creatinine Clear Calc Drug Dose 40.7 ml/min Estimated GFR () 53.8 Estimated GFR (Non- 46.5 BUN/Creatinine Ratio 22.4 10-20 Random Glucose 85 70-99 mg/dl Calcium Level 8.9 8.5-10.1 mg/dl Magnesium Level 1.8 1.8-2.4 mg/dl Pro-B-Type Natriuretic Peptide [id number] 0-1800 pg/ml
--- NOTE | 2016-06-15 11:10 | PROGRESS NOTE ---
DATE: 06/15/2016 FOLLOWUP VISIT SUBJECTIVE: Mr. Huizar is an 80-year-old who is status post mitral valve repair in 2012 with nonischemic cardiomyopathy and severe LV dysfunction. He is status post permanent pacemaker and recently was noted a during pacemaker interrogation to have a supraventricular tachyarrhythmias. He is currently wearing his ZIO patch that will come off on Saturday. He was admitted with congestive heart failure. He has been diuresed over the past several days and now feels markedly improved. His room air O2 sat is 96%. I think that the patient can be discharged to outpatient followup. We will interrogate the ZIO patch when it is completed. OBJECTIVE: GENERAL: He is alert and oriented in no acute distress. VITAL SIGNS: Blood pressure is 118/70 and pulse is regular at 70 beats per minute. He is afebrile. HEENT: He is normocephalic. Pupils are equal and reactive to light. Extraocular muscles are intact bilaterally. NECK: The neck veins are flat. Carotids have good upstrokes bilaterally without bruits. Thyroid is nonpalpable. RESPIRATORY: Breath sounds are equal bilaterally and clear to auscultation. CARDIOVASCULAR: Heart has a regular rhythm. Normal S1 and S2. No S3 or S4. No cardiac rubs or murmurs. GASTROINTESTINAL: Abdomen is soft and nontender without organomegaly. EXTREMITIES: Free of edema, digit clubbing, or cyanosis. NEUROLOGIC: Grossly intact. SKIN: Warm to touch. LYMPH NODES: Negative to palpation. LABORATORY DATA: Potassium is 3.3 today. Creatinine is 1.4. Hemoglobin is 12.2. IMPRESSION: 1. Nonischemic cardiomyopathy with an estimated left ventricular ejection fraction of 20%-25%. 2. Decompensated systolic heart failure, now resolved. 3. Status post mitral valve repair. 4. Nonsustained supraventricular tachycardia recently found on the pacemaker interrogation. 5. Permanent pacemaker for sick sinus syndrome. 6. History of paroxysmal atrial fibrillation. RECOMMENDATIONS: The patient will be given oral potassium supplements today for a low potassium. He is on an ROSHAN inhibitor as an outpatient and I do not believe that he will require supplementation as we stopped his IV diuretics today and place him on oral Lasix after discharge. He should have early followup as a heart failure patient and we will see him next week preferably at the [facility]. As mentioned above, we will interrogate his ZIO patch when it is completed and have further recommendations. FLAVIO
[2016-06-15 11:32] VITALS: BP 101/65; PULSE 70; TEMP 36.4; O2SAT 96
[2016-06-15] MEDS ORDERED: LSX40 PO (11:37)
--- NOTE | 2016-06-15 11:42 | Discharge Summary ---
Discharge Summary Date of Service Jun 15, 2016. Discharge Summary Admission Date: Jun 13, 2016 at 11:26 Discharge Date: Jun 15, 2016 Discharge Disposition: Home Principal Diagnosis: Acute Decompensated Systolic heart failure Procedures: ECHO: * Aortic valve sclerosis mild, without significant aortic valvular stenosis. * The left ventricle is moderately dilated. * Left ventricular systolic function is severely reduced. * Ejection Fraction = 25-30%. * The right ventricle is moderately dilated. * The right ventricular systolic function is moderately reduced. * The left atrium is moderately dilated. * The right atrium is moderately dilated. * An annuloplasty ring is noted in the mitral position. * There is mild mitral stenosis. * Significant mitral regurgitation is absent. * There is moderate tricuspid regurgitation. CXR: 1. Cardiomegaly and AICD with evidence of congestive failure and mild interstitial edema. 2. Small pleural effusions with bibasilar atelectasis. Pacemaker Interrogation Consultations: Cardiology Pending Studies/Follow-Up: Follow up with in 1 week (Please call for appointment) Follow up with cardiology Ira Colby PA-C on 06/21/16 in [facility] office AT 2:45 HOLD COUMADIN TILL YOU GET YOUR PT/INR (BLOOD TEST) CHECKED ON 06/18/16 INSTRUCTED AND FOLLOW UP WITH YOUR DOCTOR FOR FURTHER COUMADIN DOSAGE Medication Reconciliation New Medications: Furosemide (Furosemide) 40 Mg Tab 40 MG PO QAM for 30 Days, #30 TAB Continued Medications: Amlodipine (Norvasc) 5 Mg Tab 5 MG PO DAILY, TAB Amoxicillin (Amoxil) 500 Mg Cap 2000 MG PO DIRECTED, CAP take prior to dental procedures Aspirin Enteric Coated (Ecotrin Or Generic) 81 Mg Tab 81 MG PO DAILY, TAB Lisinopril (Zestril) 20 Mg Tab 20 MG PO DAILY, TAB Metoprolol Succ (Toprol Xl) (Toprol-Xl ) 100 Mg Tabcr 100 MG PO DAILY, TAB Omeprazole (Prilosec) 20 Mg Capcr 20 MG PO DAILY, CAP Rosuvastatin Calcium (Crestor) 10 Mg Tab 10 MG PO DAILY, TAB Warfarin Sod (Jantoven) 5 Mg Tab 5 MG PO DAILY, TAB Admission Information HPI (per Admitting provider): Mr. 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 He states his pacemaker was adjusted 2 weeks ago and he started to notice the symptoms since then. He also denotes to have intermittent dry cough and noticed to have b/l leg swelling. Denies any history of orthopnea, PND , chest pain, palpitations, dizziness, fever, chills, change in bowel/bladder habits. He was found to have oxygen sats in 80s while in ED which improved with 2L nasal cannula. Physical Exam (per Admitting): General Appearance: WD/WN, no apparent distress Head: normocephalic, atraumatic Eyes: normal inspection, PERRL, EOMI, sclerae normal ENT: normal ENT inspection, hearing grossly normal Neck: supple, no JVD, trachea midline Respiratory/Chest: chest non-tender, normal breath sounds, no respiratory distress, no accessory muscle use, + crackles Cardiovascular: regular rate, rhythm, no murmur, + pertinent finding (B/L trace leg edema) Abdomen/GI: normal bowel sounds, non tender, soft, no organomegaly Back: normal inspection, normal range of motion Extremities/Musculoskelatal: normal inspection, no calf tenderness, + pedal edema Neurologic/Psych: health education aide II-XII nml as tested, no motor/sensory deficits, alert , normal mood/affect, normal reflexes, oriented x 3 Skin: normal color, warm/dry Lymphatic: no adenopathy Hospital Course Acute Hypoxic respiratory failure Acute Decompensated Systolic heart failure Patient presented with SOB on exertion, leg swelling after pacemaker adjustment H/O Ischemic cardiomyopathy CXR:showed findings suggestive of CHF S/P IV diuretics >>>switched to PO lasix troponin X2: negative Appreciate cardiology input Monitor I/Os, daily weight Oxygen support PRN: saturating well on RA Pacemaker interrogation: NSVTs Continue Home meds ECHO: EF:25-30% ZIO patch monitoring to be discontinued on Saturday Supratherapeutic INR: Continue to hold coumadin Monitor INR:4.9 >>.4.7>..3.4 Takes 2.5 mg on sat/Sat/Sat/Sat and 5mg on other days Needs PT/INR checked on Saturday to dose Coumadin accordingly Elevated Cr levels: ? Underlying CKD Cr levels improved Avoid Nephrotoxic agents Monitor renal function Hypokalemia: Secondary to IV diuretics Will replace and monitor Mag levels:wnl H/O Severe MR S/P repair with subsequent mitral stenosis Stable Continue home meds ECHO results as below H/O PFO S/P repair H/O NSVT/P.afib, Sick sinus S/P Pacemaker Pacemaker interrogation Currently in sinus Monitor electrolytes Continue BB Coumadin held secondary to increased INR HTN: Stable Continue to monitor HLP: Continue statins DVT Px: SCDs INR supratherapeutic CODE STATUS: Full code DISPOSITION: Plan to discharge home today Follow up with in 1 week (Please call for appointment) Follow up with cardiology Ira Colby PA-C on 06/21/16 in [facility] office AT 2:45 PROCEDURES: ECHO: * Aortic valve sclerosis mild, without significant aortic valvular stenosis. * The left ventricle is moderately dilated. * Left ventricular systolic function is severely reduced. * Ejection Fraction = 25-30%. * The right ventricle is moderately dilated. * The right ventricular systolic function is moderately reduced. * The left atrium is moderately dilated. * The right atrium is moderately dilated. * An annuloplasty ring is noted in the mitral position. * There is mild mitral stenosis. * Significant mitral regurgitation is absent. * There is moderate tricuspid regurgitation. Total time spent on discharge = 35 minutes This includes examination of the patient, discharge planning, medication reconciliation, and communication with other providers. Discharge Instructions Discharge Instructions Date of Service Jun 15, 2016. Admission Reason for Admission: Sob On Exertion Discharge Discharge Diagnosis / Problem: Acute Decompensated Systolic heart failure Discharge Goals Goal(s): Decrease discomfort, Improve function Activity Recommendations Activity Limitations: resume your previous activity Exercise/Sports Limitations: as tolerated . Instructions / Follow-Up Instructions / Follow-Up Follow up with in 1 week (Please call for appointment) Follow up with cardiology Ira Colby PA-C on 06/21/16 in [facility] office AT 2:45 HOLD COUMADIN TILL YOU GET YOUR PT/INR (BLOOD TEST) CHECKED ON 06/18/16 INSTRUCTED AND FOLLOW UP WITH YOUR DOCTOR FOR FURTHER COUMADIN DOSAGE Call your Primary Care doctor if any of the following symptoms or problems start or get worse: * Shortness of breath or difficulty breathing * Wake up at night short of breath * Chest pain * Cough * Swelling of your hands, feet, or legs * More fatigued or tired with your normal activity * Palpitations - sudden fast heart beats WEIGHT * Weigh yourself every morning after using the bathroom. * Use the same scale. * Wear the same amount of clothing. * Write your weight down on a chart. * Call your Primary Care doctor if you gain more than 2-3 pounds in 1-2 days. MEDICATIONS * Use this discharge instruction sheet for medication instructions. * Take your medications at the time your doctor ordered. * Do not skip a dose of your medicines. * If you miss a dose of medicine, take it as soon as possible, but DO NOT DOUBLE A DOSE. * Read your medicine information when you get home. * Know all of the side effects of your medicine. If in doubt, ask your pharmacist * Call your Primary Care doctor's office if you have any side effects. * Be sure all of your doctors know what medicine and herbs you take (including cold, flu, and herbal medicine). Take the following with you to your follow-up doctor appointments: * Weight Chart * Medication List * List of questions Do not drink excessive alcohol, beer or wine. Current Hospital Diet Patient's current hospital diet: AHA Diet (Heart Healthy) Discharge Diet Recommended Diet: AHA Diet (Heart Healthy) Pending Studies Studies pending at discharge: no Medical Emergencies . Who to Call and When: Call 911 or go to the Emergency Room if: * If at any time you feel your situation is an emergency * You have tightness or pain in your chest that does not go away with rest or Nitroglycerin * You are very short of breath even with rest . Non-Emergent Contact Non-Emergency issues call your: Primary Care Provider, Adjunct Business Instructor Call Non-Emergent contact if: you have a fever, your pain is not controlled, your pain is worsening, you have any medication questions For shortness of breath, palpitations, chest pain . . "Provider Documentation" section prepared by Handy Camargo. VTE Core Measure Inpt VTE Proph given/why not?: SCD's
[2016-06-15 12:00] VITALS: O2SAT 95
[2016-06-15 13:04] VITALS: BP 101/65; PULSE 70; TEMP 36.4; O2SAT 96
[2016-06-16] MEDS ORDERED: FUROSEMIDE 40 MG TAB PO SCH (09:00)
== END 2016-06-15 14:25 | disposition home or self-care (01) | DRG 291 ==
LOC: ENRESERVTM → ENRESERVDT → EDBD 09:04 → C.EDA 09:05 → C.MED 11:26
PROVIDERS: ADMIT Internal Medicine; ATTEND Internal Medicine
DX: I50.21 Acute systolic (congestive) heart failure (principal); J96.01 Acute respiratory failure with hypoxia; I10 Essential (primary) hypertension; E78.5 Hyperlipidemia, unspecified; I48.0 Paroxysmal atrial fibrillation; Z87.891 Personal history of nicotine dependence; Z79.82 Long term (current) use of aspirin; Z95.0 Presence of cardiac pacemaker; Z79.01 Long term (current) use of anticoagulants

== ENCOUNTER 2017-05-23 12:27 | Inpatient (IN) | payer MEDICARE, OTHER ==
[~2017-05-23] VITALS: Ht 175.3 cm; Wt 75.5 kg
[~2017-05-23 12:27] MED LIST changes: +LSX40 PO; -METO-217 PO; +METO100T44 PO; +WARF5TAB7 PO
--- NOTE | 2017-05-23 12:57 | EMERGENCY ROOM VISIT NOTE ---
History Report prepared by Pam: Cori Quiñones Under the Supervision of: Dr. Ronnie Shea D.O. First contact with patient: 12:49 Chief Complaint: EDEMA TO EXTREMITY Stated Complaint: CHF/EDEMA History of Present Illness The patient is an 81 year old male who presents to the Emergency Room with complaints of constant edema to his bilateral legs today. He states that he was referred by his twisting frame operator. The patient denies having a headache and chest pain. The patient states that he has been taking his medications daily. The patient's twisting frame operator felt that the patient was confused today and referred the patient here. The patient has congestive heart failure. Source of History: patient Onset: today Position: leg (bilateral) Quality: other (edema ) Timing: constant Associated Symptoms: No headache, No chest pain Review of Systems See HPI for pertinent positives & negatives. A total of 10 systems reviewed and were otherwise negative. Past Medical & Surgical Medical Problems: (1) Benign hypertension (2) Chest pain (3) CHF (congestive heart failure), NYHA class IV (4) Chronic congestive heart failure (5) Hyperlipidemia (6) mitral valve repair Family History FH: heart disease MOTHER Social History Smoking Status: Former Smoker Drug Use: none Marital Status: Housing Status: lives with significant other Current/Historical Medications Scheduled Amoxicillin (Amoxil), 2,000 MG PO DIRECTED Aspirin Enteric Coated (Ecotrin Or Generic), 81 MG PO DAILY Furosemide (Furosemide), 1.5 TAB PO BID Lisinopril (Zestril), 0.5 TAB PO DAILY Magnesium Oxide (Mg Supplement (Magnesium), 1 CAP PO DAILY Metoprolol Succinate (Metoprolol Succinate ER), 2 TAB PO DAILY Omeprazole (Prilosec), 20 MG PO DAILY Spironolactone (Spironolactone), 25 MG PO DAILY Warfarin Sod (Jantoven), 2.5 MG PO DAILY Allergies Coded Allergies: No Known Allergies (Unverified , 07/14/14) pt Physical Exam Vital Signs Date Time Temp Pulse Resp B/P (MAP) Pulse Ox O2 Delivery O2 Flow Rate FiO2 05/23/17 13:57 69 18 96 05/23/17 13:27 69 24 97 05/23/17 12:57 69 21 93 05/23/17 12:55 99 Room Air 05/23/17 12:55 99 Room Air 05/23/17 12:39 67 18 113/74 96 Room Air 05/23/17 12:38 68 05/23/17 12:35 113/74 Physical Exam GENERAL: Patient is awake, alert, and in no acute distress. Patient is resting comfortably and showing no signs of anxiety. Listless but answers questions appropriately. EYES: The conjunctivae are clear. The pupils are round and reactive. EARS, NOSE, MOUTH AND THROAT: The nose is without any evidence of any deformity. Mucous membranes are moist tongue is midline NECK: The neck is nontender and supple. RESPIRATORY: Diminished throughout, rales at both bases, no conversational dyspnea appreciated. CARDIOVASCULAR: Bradycardic and regular rhythm noted there no murmurs rubs or gallops normal S1 normal S2 GASTROINTESTINAL: The abdomen is soft. Bowel sounds are present in all quadrants. Abdomen is nontender MUSCULOSKELETAL/EXTREMITIES: There is no evidence of gross deformity full range of motion is noted in the hips and shoulders SKIN: There is no obvious evidence of any rash. There are no petechiae, pallor or cyanosis noted. Pedal edema with significant venous stasis changes noted. No signs of cellulitis. NEUROLOGIC: Patient is oriented to person, place, and situation. Medical Decision & Procedures ER Provider Diagnostic Interpretation: Radiology results as stated below per my review and radiologist interpretation: SINGLE VIEW CHEST CLINICAL HISTORY: Dyspnea. FINDINGS: An AP, portable, upright chest radiograph is compared to study dated 06/13/2016. The examination is degraded by portable technique and patient rotation. There is evidence of previous cardiac valve surgery. A 2-lead cardiac AICD is unchanged in position and partially obscures the left lower chest. Epicardial pacing leads are noted. The heart is enlarged and there is atherosclerotic calcification of the thoracic aorta. Mild pulmonary vascular congestion is identified. There are low lung volumes with bibasilar atelectasis. No airspace consolidation or large pleural effusion is identified. A questionable nodular density projects over the right midlung. No pneumothorax is seen. The skeletal structures are osteopenic. The bony thorax is grossly intact. IMPRESSION: 1. Cardiomegaly and AICD. There is mild pulmonary vascular congestion. 2. No airspace consolidation or large pleural effusion is identified. 3. There is a questionable nodular density projecting over the right midlung which may be artifactual. Follow-up with a dedicated PA and lateral examination is recommended. Electronically signed by: Jorden Matthews M.D. 05/23/2017 1:18 PM Dictated Date/Time: 05/23/2017 1:16 PM Laboratory Results 05/23/17 13:20 Red Blood Count 4.71, Mean Corpuscular Volume 90.2, Mean Corpuscular Hemoglobin 29.3, Mean Corpuscular Hemoglobin Concent 32.5, Mean Platelet Volume 9.7, Neutrophils (%) (Auto) 72.7, Lymphocytes (%) (Auto) 15.9, Monocytes (%) (Auto) 9.7, Eosinophils (%) (Auto) 0.7, Basophils (%) (Auto) 0.5, Neutrophils # (Auto) 6.30, Lymphocytes # (Auto) 1.38, Monocytes # (Auto) 0.84, Eosinophils # (Auto) 0.06, Basophils # (Auto) 0.04 05/23/17 13:20 Test 05/23/17 13:20 05/23/17 14:55 White Blood Count 8.66 K/uL (4.8-10.8) Red Blood Count 4.71 M/uL (4.7-6.1) Hemoglobin 13.8 g/dL (14.0-18.0) Hematocrit 42.5 % (42-52) Mean Corpuscular Volume 90.2 fL (80-100) Mean Corpuscular Hemoglobin 29.3 pg (25-34) Mean Corpuscular Hemoglobin Concent 32.5 g/dl (32-36) Platelet Count 318 K/uL (130-400) Mean Platelet Volume 9.7 fL (7.4-10.4) Neutrophils (%) (Auto) 72.7 % Lymphocytes (%) (Auto) 15.9 % Monocytes (%) (Auto) 9.7 % Eosinophils (%) (Auto) 0.7 % Basophils (%) (Auto) 0.5 % Neutrophils # (Auto) 6.30 K/uL (1.4-6.5) Lymphocytes # (Auto) 1.38 K/uL (1.2-3.4) Monocytes # (Auto) 0.84 K/uL (0.11-0.59) Eosinophils # (Auto) 0.06 K/uL (0-0.5) Basophils # (Auto) 0.04 K/uL (0-0.2) RDW Standard Deviation 80.4 fL (36.4-46.3) RDW Coefficient of Variation 24.8 % (11.5-14.5) Immature Granulocyte % (Auto) 0.5 % Immature Granulocyte # (Auto) 0.04 K/uL (0.00-0.02) Anisocytosis PRESENT Echinocytes 1+ Prothrombin Time 53.5 SECONDS (9.0-12.0) Prothromb Time International Ratio 5.3 (0.9-1.1) Activated Partial Thromboplast Time 43.9 SECONDS (21.0-31.0) Partial Thromboplastin Ratio 1.7 Anion Gap 11.0 mmol/L (3-11) Est Creatinine Clear Calc Drug Dose 24.9 ml/min Estimated GFR () 27.3 Estimated GFR (Non- 23.6 BUN/Creatinine Ratio 14.1 (10-20) Calcium Level 9.6 mg/dl (8.5-10.1) Total Bilirubin 4.7 mg/dl (0.2-1) Aspartate Amino Transf (AST/SGOT) 24 U/L (15-37) Alanine Aminotransferase (ALT/SGPT) 20 U/L (12-78) Alkaline Phosphatase 164 U/L (45-117) Troponin I < 0.015 ng/ml (0-0.045) Pro-B-Type Natriuretic Peptide > 85099 pg/ml (0-1800) Total Protein 7.8 gm/dl (6.4-8.2) Albumin 2.9 gm/dl (3.4-5.0) Globulin 4.9 gm/dl (2.5-4.0) Albumin/Globulin Ratio 0.6 (0.9-2) Ammonia 18.5 umol/L (11-32) Laboratory results per my review. Medications Administered Medications (Trade) Dose Ordered Sig/[place] Route Start Time Stop Time Status Last Admin Dose Admin Furosemide (Lasix Inj) 20 mg NOW STAT IV 05/23/17 14:07 05/23/17 14:08 DC 05/23/17 14:15 20 MG ECG Per My Interpretation Indication: other (CHF) Rate (beats per minute): 69 Rhythm: sinus rhythm Findings: 1st degree AV block, RBBB, ST depression (Anterior) Change: no significant change (from 06/13/16) ED Course 1307: The patient was evaluated in room B8. A complete history and physical examination were performed. 1407: Ordered Lasix Inj 20 mg IV. 1410: Upon reevaluation, the patient is resting. I discussed results and treatment plan with him. He verbalizes agreement and understanding. I spoke with Dr. Reeves of the [facility]. The patient will be evaluated for further management and care. Medical Decision Differential diagnosis: Etiologies such as infections, reactive airway disease, pneumonia, pneumothorax , COPD, CHF, cardiac ischemia, pulmonary embolism, musculoskeletal, gastrointestinal, as well as others were entertained. Nursing notes reviewed. The patient's cardiology visit was also reviewed. The patient is an 81-year-old male who presented to the emergency department for evaluation of lower extremity edema and difficulty breathing. The patient has a history of low ejection fraction and congestive heart failure. He was seen at the twisting frame operator office for follow-up appointment. He was sent to the emergency department for further evaluation. The patient was treated with IV Lasix in the emergency department although he does have an elevation in his creatinine compared to previous. I discussed patient's laboratory and radiographic studies with him. I also discussed his case with the on-call [facility]ist. They have agreed to evaluate the patient in the emergency department for further management and disposition. Medication Reconcilliation Current Medication List: was personally reviewed by me Blood Pressure Screening Patient's blood pressure: Normal blood pressure Consults Time Called: 1350 Consulting Physician: Dr. Oneal Returned Call: 1410 I discussed the patient's case with Dr. Reeves. The patient will be evaluated for further management. Impression Primary Impression: Pulmonary edema Additional Impression: Lower extremity edema Scribe Attestation The scribe's documentation has been prepared under my direction and personally reviewed by me in its entirety. I confirm that the note above accurately reflects all work, treatment, procedures, and medical decision making performed by me. Departure Information Dispostion Being Evaluated By Hospitalist Prescriptions Furosemide (Furosemide) 40 Mg Tab 1.5 TAB PO BID for 30 Days, #90 TAB Prov: Ann Vargas PA-C 05/23/17 Referrals Jared Godoy PA-C (PCP) Patient Instructions [facility] Problem Qualifiers Primary Impression: Pulmonary edema Chronicity: chronic Qualified Codes: J81.1 - Chronic pulmonary edema
--- NOTE | 2017-05-23 13:19 | DIAGNOSTIC IMAGING REPORT ---
SINGLE VIEW CHEST CLINICAL HISTORY: Dyspnea. FINDINGS: An AP, portable, upright chest radiograph is compared to study dated 06/13/2016. The examination is degraded by portable technique and patient rotation. There is evidence of previous cardiac valve surgery. A 2-lead cardiac AICD is unchanged in position and partially obscures the left lower chest. Epicardial pacing leads are noted. The heart is enlarged and there is atherosclerotic calcification of the thoracic aorta. Mild pulmonary vascular congestion is identified. There are low lung volumes with bibasilar atelectasis. No airspace consolidation or large pleural effusion is identified. A questionable nodular density projects over the right midlung. No pneumothorax is seen. The skeletal structures are osteopenic. The bony thorax is grossly intact. IMPRESSION: 1. Cardiomegaly and AICD. There is mild pulmonary vascular congestion. 2. No airspace consolidation or large pleural effusion is identified. 3. There is a questionable nodular density projecting over the right midlung which may be artifactual. Follow-up with a dedicated PA and lateral examination is recommended. Electronically signed by: Jorden Matthews M.D. 05/23/2017 1:18 PM Dictated Date/Time: 05/23/2017 1:16 PM
[2017-05-23 13:30] LABS: BASO % 0.5 %; BASO ABS # 0.04 K/uL (0-0.2); EOS % 0.7 %; EOS ABS # 0.06 K/uL (0-0.5); HEMATOCRIT 42.5 % (42-52); HEMOGLOBIN 13.8 g/dL (14.0-18.0); IG# 0.04 K/uL (0.00-0.02); LYMPH % 15.9 %; LYMPH ABS # 1.38 K/uL (1.2-3.4); MEAN CELL VOLUME 90.2 fL (80-100); MEAN CORPUSCULAR HEMOGLOBIN 29.3 pg (25-34); MEAN CORPUSCULAR HGB CONC 32.5 g/dl (32-36); MEAN PLATELET VOLUME 9.7 fL (7.4-10.4); MONO % 9.7 %; MONO ABS # 0.84 K/uL (0.11-0.59); NEUT % 72.7 %; PLATELET COUNT 318 K/uL (130-400); RED CELL DISTRIBUTION WIDTH CV 24.8 % (11.5-14.5); RED CELL DISTRIBUTION WIDTH SD 80.4 fL (36.4-46.3); WHITE BLOOD COUNT 8.66 K/uL (4.8-10.8)
[2017-05-23 13:43] LABS: PTT PATIENT 43.9 SECONDS (21.0-31.0)
[2017-05-23 13:49] LABS: INR 5.3 (0.9-1.1)
[2017-05-23 13:50] LABS: ALBUMIN 2.9 gm/dl (3.4-5.0); ALT/SGPT 20 U/L (12-78); BLOOD UREA NITROGEN 34 mg/dl (7-18); CALCIUM 9.6 mg/dl (8.5-10.1); CARBON DIOXIDE 25 mmol/L (21-32); CREATININE 2.44 mg/dl (0.60-1.40); GLUCOSE 90 mg/dl (70-99); POTASSIUM 4.8 mmol/L (3.5-5.1); SODIUM 134 mmol/L (136-145)
[2017-05-23 13:59] LABS: ALKALINE PHOSPHATASE 164 U/L (45-117); AST/SGOT 24 U/L (15-37); TOTAL PROTEIN 7.8 gm/dl (6.4-8.2)
[2017-05-23] MEDS ORDERED: FUROSEMIDE 40 MG/4 ML VIAL IV STA (14:07)
[2017-05-23] MEDS ORDERED: SPR25 PO (14:25)
[2017-05-23] MEDS ORDERED: TPRSR/50 PO (14:25)
[2017-05-23] MEDS ORDERED: MAGNESIUM HYDROXIDE SUSP 30 ML UDC PO PRN (14:30)
[2017-05-23] MEDS ORDERED: ACETAMINOPHEN 325 MG TAB PO PRN (14:30)
[2017-05-23] MEDS ORDERED: ONDANSETRON INJ 2 MG/ML 2 ML VIAL IV PRN (14:30)
[2017-05-23] MEDS ORDERED: POLYETHYLENE (MIRALAX) 17 GM PACK PO PRN (14:30)
[2017-05-23] MEDS ORDERED: NITROGLYCERIN 0.4 MG SL PER TAB CHARGE SL PRN (14:30)
[2017-05-23] MEDS ORDERED: ALUMINUM/MAGNESIUM/SIMETH (MAALOX MAX) 30 ML UDC PO PRN (14:30)
[2017-05-23] MEDS ORDERED: LSX40 PO (15:22)
[2017-05-23] MEDS ORDERED: MAGN1CAP2 PO (15:25)
[2017-05-23] MEDS ORDERED: FUROSEMIDE INJ 20 MG in SYRINGE 0 ML IV SCH (18:15)
--- NOTE | 2017-05-23 18:18 | History and Physical ---
History & Physical Date & Time of Service: May 23, 2017 at 15:28 Chief Complaint: Chf/Edema Primary Care Physician: Jared Godoy PA-C History of Present Illness Source: patient, clinic records, hospital records Pt is 81 y/o M with PMH mitral regurgitation s/p MV repair in 2012, PFO s/p closure in 2012, CAD, cardiomyopathy with EF: 20-25%, paroxysmal a-fib, paroyxsmal VT, RBBB, 1st degree AV block, s/p pacer/defibrillator, HTN, HLD presented to ER from cardiology office for increased edema x couple of weeks. Pt was seen on 05/16/17 by cardiology at at that time he had stopped taking his lasix as he felt he was urinating too much on lasix, and was noted to have increased edema. He was then changed to lasix 60mg BID, spironolactone 25mg daily was added and his lisinopril was decreased from 20mg tab to half tab (10mg ) daily. He was to continue his metoprolol 100mg (two 50mg tabs) daily, magnesium and ASA. Pt is supposed to be holding his Coumadin secondary to supratherapeutic INR. It has been on hold since 05/13/17. Yesterday INR>8 and he was to take vitamin K 2.5mg which pt believes he took. Denies epistaxis or melena or hematochezia. Does have bruising and scabs noted to left arm and pt reports those are from flea bites that his dog had fleas and pt has been scratching and picking at areas. Pt feels areas or improving. Pt reports increased edema to LE past couple of weeks. Pt denies any other complaints today. According to cardiology out pt note reports pt with increased weakness and confusion. Pt uses walker to ambulate. Denies fever/chills, diaphoresis, N/V/D/C, MALONE, dizziness, syncope, vision changes, neck pain, CP, SOB , orthopnea, palpitations, cough, sore throat, choking, otalgia, rhinorrhea, abdominal pain, paresthesias, dysuria, hematuria. Of note - Unsure if pt has been taking his meds correctly and unsure if he has been holding his Coumadin as directed. Pt reports that he does his own medications at home. When asked if he has been taking or holding the Coumadin as directed, he states he thinks he has been taking it. Admits that he is confused about his meds with recent med changes. Past Medical/Surgical History Medical Problems: (1) Benign hypertension Status: Chronic (2) Chest pain Status: Resolved (3) Chronic congestive heart failure Status: Chronic (4) History of implantable cardiac defibrillator (ICD) Status: Chronic (5) Hx of cardiac pacemaker Status: Chronic (6) Hyperlipidemia Status: Chronic (7) mitral valve repair Status: Chronic (8) Paroxysmal A-fib Status: Chronic (9) Paroxysmal ventricular tachycardia Status: Chronic (10) RBBB Status: Chronic Surgical Problems: (1) Hx of mitral valve repair Permanent Comment: 2013 - Dr Hedrick - [facility] [place] repair of patent foramen ovale at that time also Status: Resolved Family History FH: heart disease MOTHER Social History Smoking Status: Former Smoker Smokeless Tobacco Use: No Alcohol Use: none currently, reports stopped drinking 8 months ago, previously drank 2 beers daily Drug Use: none Marital Status: Housing status: lives with significant other Immunizations History of Influenza Vaccine: No History of Tetanus Vaccine?: No History of Pneumococcal: Unknown History of Hepatitis B Vaccine: No Allergies Coded Allergies: No Known Allergies (Unverified , 07/14/14) pt Home Medications Scheduled Amoxicillin (Amoxil), 2,000 MG PO DIRECTED Aspirin Enteric Coated (Ecotrin Or Generic), 81 MG PO DAILY Furosemide (Furosemide), 1.5 TAB PO BID Lisinopril (Zestril), 0.5 TAB PO DAILY Magnesium Oxide (Mg Supplement (Magnesium), 1 CAP PO DAILY Metoprolol Succinate (Metoprolol Succinate ER), 2 TAB PO DAILY Omeprazole (Prilosec), 20 MG PO DAILY Spironolactone (Spironolactone), 25 MG PO DAILY Warfarin Sod (Jantoven), 2.5 MG PO DAILY Physical Exam Vital Signs Date Time Temp Pulse Resp B/P (MAP) Pulse Ox O2 Delivery O2 Flow Rate FiO2 05/23/17 13:57 69 18 96 05/23/17 13:27 69 24 97 05/23/17 12:57 69 21 93 05/23/17 12:55 99 Room Air 05/23/17 12:55 99 Room Air 05/23/17 12:39 67 18 113/74 96 Room Air 05/23/17 12:38 68 05/23/17 12:35 113/74 General Appearance: WD/WN, no apparent distress Head: normocephalic, atraumatic Eyes: normal inspection, PERRL, EOMI ENT: pharynx normal, + pertinent finding (mucous membranes moist. Hard of hearing) Neck: supple, trachea midline Respiratory/Chest: no respiratory distress, no accessory muscle use, + decreased breath sounds (bases bilaterally, no rales or rhonchi or wheezing noted) Cardiovascular: regular rate, rhythm, + systolic murmur Abdomen/GI: normal bowel sounds, non tender, + pertinent finding (+edema) Back: no CVA tenderness Extremities/Musculoskelatal: no calf tenderness, + pertinent finding (+3 pitting edema bilateral pre-tibial, 2+pitting edema thighs bilaterally. ecchymosis noted left foot/toes. sensation to light touch intact) Neurologic/Psych: alert, + pertinent finding (oriented to person and place) Skin: warm/dry, + pertinent finding (+multiple ecchymosis and escar to L arm without surrounding erythema ) Diagnostics Laboratory Results Results Past 24 Hours Test 05/23/17 13:20 05/23/17 14:55 Range/Units White Blood Count 8.66 4.8-10.8 K/uL Red Blood Count 4.71 4.7-6.1 M/uL Hemoglobin 13.8 14.0-18.0 g/dL Hematocrit 42.5 42-52 % Mean Corpuscular Volume 90.2 80-100 fL Mean Corpuscular Hemoglobin 29.3 25-34 pg Mean Corpuscular Hemoglobin Concent 32.5 32-36 g/dl Platelet Count 318 130-400 K/uL Mean Platelet Volume 9.7 7.4-10.4 fL Neutrophils (%) (Auto) 72.7 % Lymphocytes (%) (Auto) 15.9 % Monocytes (%) (Auto) 9.7 % Eosinophils (%) (Auto) 0.7 % Basophils (%) (Auto) 0.5 % Neutrophils # (Auto) 6.30 1.4-6.5 K/uL Lymphocytes # (Auto) 1.38 1.2-3.4 K/uL Monocytes # (Auto) 0.84 0.11-0.59 K/uL Eosinophils # (Auto) 0.06 0-0.5 K/uL Basophils # (Auto) 0.04 0-0.2 K/uL RDW Standard Deviation 80.4 36.4-46.3 fL RDW Coefficient of Variation 24.8 11.5-14.5 % Immature Granulocyte % (Auto) 0.5 % Immature Granulocyte # (Auto) 0.04 0.00-0.02 K/uL Anisocytosis PRESENT Echinocytes 1+ Prothrombin Time 53.5 9.0-12.0 SECONDS Prothromb Time International Ratio 5.3 0.9-1.1 Activated Partial Thromboplast Time 43.9 21.0-31.0 SECONDS Partial Thromboplastin Ratio 1.7 Sodium Level 134 136-145 mmol/L Potassium Level 4.8 3.5-5.1 mmol/L Chloride Level 98 98-107 mmol/L Carbon Dioxide Level 25 21-32 mmol/L Anion Gap 11.0 3-11 mmol/L Blood Urea Nitrogen 34 7-18 mg/dl Creatinine 2.44 0.60-1.40 mg/dl Est Creatinine Clear Calc Drug Dose 24.9 ml/min Estimated GFR () 27.3 Estimated GFR (Non- 23.6 BUN/Creatinine Ratio 14.1 10-20 Random Glucose 90 70-99 mg/dl Calcium Level 9.6 8.5-10.1 mg/dl Total Bilirubin 4.7 0.2-1 mg/dl Aspartate Amino Transf (AST/SGOT) 24 15-37 U/L Alanine Aminotransferase (ALT/SGPT) 20 12-78 U/L Alkaline Phosphatase 164 45-117 U/L Troponin I < 0.015 0-0.045 ng/ml Pro-B-Type Natriuretic Peptide > 82519 0-1800 pg/ml Total Protein 7.8 6.4-8.2 gm/dl Albumin 2.9 3.4-5.0 gm/dl Globulin 4.9 2.5-4.0 gm/dl Albumin/Globulin Ratio 0.6 0.9-2 Ammonia 18.5 11-32 umol/L Diagnostic Radiology CXR: IMPRESSION: 1. Cardiomegaly and AICD. There is mild pulmonary vascular congestion. 2. No airspace consolidation or large pleural effusion is identified. 3. There is a questionable nodular density projecting over the right midlung which may be artifactual. Follow-up with a dedicated PA and lateral examination is recommended. EKG EKG: sinus rhythm, RBBB, 1st degree AV block Impression Assessment and Plan ACUTE ON CHRONIC SYSTOLIC HF Pt with increased edema past couple of weeks, failed out pt trial, question of med compliance. Hx EF: 20-25%. Pt denies SOB or CP. BNP >63909. CXR: Cardiomegaly and AICD. There is mild pulmonary vascular congestion. No airspace consolidation or large pleural effusion is identified. There is a questionable nodular density projecting over the right midlung which may be artifactual. Follow-up with a dedicated PA and lateral examination is recommended. Pt given lasix 20mg IV in ER and then additional 20mg IV ordered. -fluid restriction -lasix 40mg IV BID -monitor I&O's -echo -cardiology consult -monitor electrolytes. SUPRATHERAPEUTIC INR INR: 5.3. no active bleeding. pt received vitamin K 2.5mg po yesterday -monitor INR -hold coumadin CARDIOMYOPATHY, Hx PAROXYSMAL A-FIB and VTACH S/P PACER/DEFIBRILLATOR, Hx MITRAL REGURGITATION S/P MITRAL VALVE REPAIR -echo -continue metoprolol, ASA -receiving IV lasix currently PROLONGED QT -avoid QTc prolonging agents NAM on CKD III Cr 2.4, was 1.6 on 05/20/17 -monitor renal functions -avoid nephrotoxic agents when possible -nephrology consult HTN -continue metoprolol, hold lisinopril DVT Prophylaxis -INR elevated Disposition admit tele Full Code as per discussion with pt Follows with Dr Reyna for routine care Pt was seen with Dr Reeves. See addendum ATTENDING ADDENDUM : pt seen and examined, care co -ordinated with Ann Craig PA-C 81 yo M with complex cardiac hx of severe ischemic cardiomyopathy with systolic and diastolic dysfunction , Rt sided heart failure EF 30 % s/p AICD pt sent form cardiology office for vol overload , increased lower ext edema, wt gain and TORREZ given IV lasix NAM on CKD Stage 3 possible due to cardiac decompensation will require IV diuretics for vol overload appreciate Cardiology eval repeat ECHO ordered follow BMP and vol status closely Nephrology eval requested Hx of Afib on Coumadin /Coagulopathy out pt INR was > 8 possible due to hepatic congestion due to Rt heart failure given VIt K yesterday -> INR 5.3 follow INR on Beta amrit please refer to further documentation by Ann Craig PA-C for discussion of other issues Inocencia Revees MD Level of Care Telemetry Resuscitation Status FULL RESUSCITATION VTE Prophylaxis VTE Risk Assessment Done? Y/N: Yes Risk Level: Moderate Given or contraindicated: Warfarin (Coumadin) Additional Copies To Carmela Reyna D.O.
[2017-05-23 20:02] VITALS: BP 113/74; PULSE 84; TEMP 36.1; Ht 175.3 cm; Wt 75.5 kg
--- NOTE | 2017-05-23 20:26 | CARDIOLOGY CONSULTATION ---
DATE OF CONSULTATION: 05/23/2017 REFERRING PHYSICIAN: Inocencia Reeves MD. PRIMARY CARE PHYSICIAN: Carmela Reyna DO. INDICATIONS: Acute on chronic decompensated systolic and diastolic heart failure, right greater than left. HISTORY OF PRESENT ILLNESS: The patient is an extremely complex 81-year-old male whose past history is notable for mitral valve repair for flail P2 segment in May 2012, receiving a mitral valve annuloplasty ring and closure of patent foramen ovale. The patient's preoperative evaluation included cardiac catheterization with 40% distal left main taper. He has had persistent LV dysfunction since surgery with presumed nonischemic cardiomyopathy, EF 20-25%. He has undergone a course of management pacer defibrillator implantation in June 2014. Biventricular device was not placed due to history of persistent left-sided IVC. Underlying medical problems also include hypertension, dyslipidemia, paroxysmal atrial and ventricular arrhythmias, past documented paroxysmal ventricular tachycardia. The patient presents on referral from outpatient clinic. He was seen in cardiology clinic approximately 1 week ago, having presented at that time with decompensated right heart failure with a weight up greater than 24 pounds. He refused in-hospital management at that time. Diuretics were increased though he noted little clinical change on return in follow up today. He is referred to the ER for further evaluation. He denies any chest pains. Notes no tachypalpitations. Does appear slightly less conversant and oriented when asking questions about recent medications. He notes edema of his both lower extremities with weeping drainage. Notes no recent fevers or infections, notes no bleeding difficulties, notes no melena, hematochezia, dysuria or hematuria. He cannot specifically answer questions regarding his medications other than he has been taking them as prescribed. Appetite has been fair. He is uncertain to the degree of weight gain but weight gain by review of outpatient records was greater than 25 pounds. REVIEW OF SYSTEMS: Otherwise unobtainable. ALLERGIES: None. MEDICATIONS PRIOR TO HOSPITALIZATION: Furosemide 60 mg p.o. daily, as recent increase by 20 mg daily, lisinopril 10 mg p.o. daily, spironolactone 25 mg p.o. daily, metoprolol succinate 50 mg 2 tablets daily, omeprazole 20 mg p.o. daily, Mag-Ox 400 mg p.o. daily, warfarin 5 mg Saturday, Saturday, Saturday and Saturday, 2.5 mg other days, aspirin 81 mg per day. PAST SURGICAL HISTORY: Notable as described, mitral valve repair and atrial septal defect closure on 05/26/2012. FAMILY HISTORY: Notable for heart disease in mother and brother. SOCIAL HISTORY: The patient resides outside of [place]. He is currently a non-smoker and nondrinker by his own description. PHYSICAL EXAMINATION: VITAL SIGNS: Heart rate 73, blood pressure is 113/74, O2 saturations 94% on room air. HEENT: Normocephalic, atraumatic. Nares without discharge. Throat is thick. NECK: There is moderate jugular venous distention at 30 degrees. LUNGS: Reveal diminished breath sounds bibasilar. CARDIOVASCULAR: Regular. There is a grade 1/6 systolic murmur. No diastolic murmurs. No S3 gallop. Pacer defibrillator sites without tenderness. ABDOMEN: Soft with moderate distention. EXTREMITIES: Reveal 3+ edema to above the knees with weeping lower extremities and some surrounding erythema without purulence. NEUROLOGIC: The patient is answering questions appropriately, though with some difficulty with some details. LABORATORY STUDIES: Sodium is 134, potassium is 4.8, chloride 98, bicarbonate 25, BUN is 34, creatinine is 2.44. BNP is 35,000. Albumin is 2.9. AST and ALT are normal. Alkaline phosphatase is 164. EKG reveals sinus rhythm with first degree AV block, bifascicular heart block. Chest x-ray reveals cardiomegaly and mildly diminished air space at the bases. Last echocardiogram performed was in May of 2016, which demonstrated severe LV dysfunction, EF 25-30%, mild mitral stenosis, moderate tricuspid insufficiency, diffuse LV dysfunction and moderate right ventricular dysfunction. IMPRESSION: Complex 81-year-old male presents with acute decompensated right greater than left ventricular systolic and diastolic heart failure in the setting of worsening renal insufficiency, hepatic congestion. He has not responded to outpatient oral diuretic changes and overall, has manifested clinical decline. PLAN: The patient will be admitted for cautious IV diuresis with IV furosemide initially. Given worsening lower extremity edema, medications will be adjusted including holding spironolactone and holding lisinopril. Echocardiogram is scheduled to be repeated. We will follow patient clinically in hospital stay. Overall condition suggests declining function and a reduced prognosis. [facility]
[2017-05-23] MEDS: FUROSEMIDE INJ 40 MG in SYRINGE 0 ML IV SCH (21:00)
[2017-05-23 21:30] VITALS: BP_SYST 92; BP_SYST 96; BP_DIAS 57; BP_DIAS 63; PULSE 74
[2017-05-23 23:56] VITALS: BP 93/58; PULSE 70; TEMP 36.3; O2SAT 92
[2017-05-24] VITALS (7 sets, daily range): BP systolic 91–103; BP diastolic 58–66; PULSE 67–75; TEMP 36.3–36.4; O2SAT 91–95
[2017-05-24] MEDS: FUROSEMIDE INJ 40 MG in SYRINGE 0 ML IV SCH ×3 (06:00→18:20)
[2017-05-24 06:15] LABS: HEMATOCRIT 38.5 % (42-52); HEMOGLOBIN 12.5 g/dL (14.0-18.0); MEAN CELL VOLUME 89.7 fL (80-100); MEAN CORPUSCULAR HEMOGLOBIN 29.1 pg (25-34); MEAN CORPUSCULAR HGB CONC 32.5 g/dl (32-36); MEAN PLATELET VOLUME 9.1 fL (7.4-10.4); PLATELET COUNT 300 K/uL (130-400); RED CELL DISTRIBUTION WIDTH CV 24.8 % (11.5-14.5); RED CELL DISTRIBUTION WIDTH SD 79.8 fL (36.4-46.3); WHITE BLOOD COUNT 7.78 K/uL (4.8-10.8)
[2017-05-24 06:46] LABS: ALBUMIN 2.2 gm/dl (3.4-5.0); CALCIUM 9.1 mg/dl (8.5-10.1); CREATININE 2.48 mg/dl (0.60-1.40); POTASSIUM 4.4 mmol/L (3.5-5.1)
[2017-05-24 06:51] LABS: TOTAL PROTEIN 6.6 gm/dl (6.4-8.2)
[2017-05-24] MEDS ORDERED: NURSING VERBAL MED ORDER ONE ×2 (07:15→09:45)
--- NOTE | 2017-05-24 08:27 | DIAGNOSTIC IMAGING REPORT ---
TWO VIEW CHEST CLINICAL HISTORY: CHF. FINDINGS: PA and lateral chest radiographs are compared to study dated 05/23/2017. The PA view is degraded by patient rotation. There is evidence of previous cardiac valve surgery. A 2-lead cardiac AICD is unchanged in position and partially obscures the left mid chest. Epicardial pacing leads are noted. The heart is enlarged and there is atherosclerotic calcification of the thoracic aorta. Pulmonary vascular congestion has almost completely resolved. There are low lung volumes with bibasilar airspace opacities. Small pleural effusions are seen on the lateral projection. The nodular density in the right midlung questioned on yesterday's examination is no longer present and was likely artifactual. No pneumothorax is seen. The skeletal structures are osteopenic. The bony thorax is grossly intact. IMPRESSION: 1. Cardiomegaly and AICD. Pulmonary vascular congestion has almost completely resolved. 2. Small pleural effusions are seen on the lateral view. 3. Bibasilar airspace opacities likely represent atelectasis. Clinical correlation will be required. 4. The nodular density in the right lung questioned on yesterday's examination is no longer identified and was likely artifactual. Electronically signed by: Jorden Matthews M.D. 05/24/2017 8:26 AM Dictated Date/Time: 05/24/2017 8:23 AM
[2017-05-24] MEDS: PANTOprazole SOD 40 MG TAB PO SCH (08:41)
[2017-05-24] MEDS: ASPIRIN 81 MG ECTAB PO SCH (08:41)
[2017-05-24] MEDS: MAGNESIUM OXIDE 400 MG TAB PO SCH (08:41)
[2017-05-24] MEDS: METOPROLOL SUCC 50MG EXT REL TAB PO SCH (08:42)
[2017-05-24] MEDS ORDERED: AMLODIPINE BESYLATE 5 MG TAB PO SCH (09:00)
[2017-05-24] MEDS ORDERED: ASPIRIN 81 MG ECTAB PO SCH (09:00)
[2017-05-24] MEDS ORDERED: PERFLUTREN LIPID MICROSPHERE (DEFINITY) IV ONE (10:14)
--- NOTE | 2017-05-24 11:03 | Cardiology Follow-Up ---
Subjective General Date of Service: May 24, 2017. Chief Complaint: Right heart failure Pt evaluation today including: conversation w/ patient, physical exam, chart review, lab review, review of studies, review of inpatient medication list History of Present Illness Patient seen and examined. Chart, medications, and telemetry reviewed. Patient feels and looks considerably better than that reported on presentation Improved mentation. Improved volume overload. He remains acutely ill, significantly decompensated right heart failure EKG this AM reveals sinus rhythm with 1st degree A-V block, right bundle branch block, old inferior infarct. Telemetry: Sinus with a first degree AV block, right bundle branch block. Current rate is 71 bpm. Rare PVC in singles, perhaps one couplet (versus artifact). No significant arrhythmias. TTE: Pending Allergies Coded Allergies: No Known Allergies (Unverified , 07/14/14) pt Social History Smoking Status: Unknown if Ever Smoked Hx Tobacco Use In Past Year?: No ([id number] smoked only) Hx Alcohol Use - Type And Amou: No Hx Substance Use - Type And Am: No Problem List Medical Problems: (1) Congestive heart failure Status: Acute (2) Hypoxia Status: Acute (3) Lower extremity edema Status: Acute (4) Pulmonary edema Status: Acute Physical Exam Vital Signs Last Vital Signs Documentation Date Time Temp Pulse Resp B/P (MAP) Pulse Ox O2 Delivery O2 Flow Rate FiO2 05/24/17 10:05 Room Air 05/24/17 07:38 36.3 67 20 91/58 (69) 95 Physical Exam Constitutional: Level of Distress: acutely ill, chronically ill Psychiatric: Mental Status: active & alert Orientation: to place, to person, not oriented to time Memory: remote memory normal, recent memory abnormal Head: normocephalic, atraumatic Eyes: Pupils: pertinent finding (icterus ) Neck: pertinent finding (Eleveted JVP. + HJR) Lungs: Auscultation: no wheezing, no rhonchi, deminished air movement, decreased breath sounds, rales/crackles on the left, rales/crackles on the right Cardiovascular: Heart Auscultation: RRR, no rubs, II/ J LUIS, gallop Peripheral Pulses: Radial Pulse: normal on the left, normal on the right Dorsalis Pedis Pulse: absent on the left, absent on the right Abdomen: Bowel Sounds: normal Inspection & Palpation: no masses, distended Liver: hepatomegaly Extremities: no cyanosis, no clubbing, edema Neurologic: Cranial Nerves: grossly intact Assessment and Plan Assessment and Plan Admission with markedly acute decompensated right greater than left ventricular systolic and diastolic heart failure signs and symptoms in the setting of worsening mentation, acute on chronic renal dysfunction. Patient failed to respond to outpatient treatments, possibly due to noncompliance versus abnormal mentation. He appears to have advanced, end stage congestive heart failure as discussed. Will hold off on adding inotropic support given positive response to cautious IV diuretic administration. Continue to hold lisinopril as well as the recently added spironolactone. Warfarin will also be held given the supratherapeutic INR. Continue Toprol XL, ASA, and Magnesium as prescribed. Await TTE findings. Patient was seen and examined. Much better mentation this am, continued diuresis. Echo demonstrates severe diffuse LV dysfunction EF 15-20%, prior mitral valve repair with at least mild to moderate stenosis, moderate elevation of right heart pressures. Edis Joseph MD Laboratory Results Last 24 Hours Test 05/23/17 13:20 05/23/17 14:55 05/23/17 20:29 05/24/17 01:45 White Blood Count 8.66 K/uL Red Blood Count 4.71 M/uL Hemoglobin 13.8 g/dL Hematocrit 42.5 % Mean Corpuscular Volume 90.2 fL Mean Corpuscular Hemoglobin 29.3 pg Mean Corpuscular Hemoglobin Concent 32.5 g/dl Platelet Count 318 K/uL Mean Platelet Volume 9.7 fL Neutrophils (%) (Auto) 72.7 % Lymphocytes (%) (Auto) 15.9 % Monocytes (%) (Auto) 9.7 % Eosinophils (%) (Auto) 0.7 % Basophils (%) (Auto) 0.5 % Neutrophils # (Auto) 6.30 K/uL Lymphocytes # (Auto) 1.38 K/uL Monocytes # (Auto) 0.84 K/uL Eosinophils # (Auto) 0.06 K/uL Basophils # (Auto) 0.04 K/uL RDW Standard Deviation 80.4 fL RDW Coefficient of Variation 24.8 % Immature Granulocyte % (Auto) 0.5 % Immature Granulocyte # (Auto) 0.04 K/uL Anisocytosis PRESENT Echinocytes 1+ Prothrombin Time 53.5 SECONDS Prothromb Time International Ratio 5.3 Activated Partial Thromboplast Time 43.9 SECONDS Partial Thromboplastin Ratio 1.7 Sodium Level 134 mmol/L Potassium Level 4.8 mmol/L Chloride Level 98 mmol/L Carbon Dioxide Level 25 mmol/L Anion Gap 11.0 mmol/L Blood Urea Nitrogen 34 mg/dl Creatinine 2.44 mg/dl Est Creatinine Clear Calc Drug Dose 24.9 ml/min Estimated GFR () 27.3 Estimated GFR (Non- 23.6 BUN/Creatinine Ratio 14.1 Random Glucose 90 mg/dl Calcium Level 9.6 mg/dl Total Bilirubin 4.7 mg/dl Aspartate Amino Transf (AST/SGOT) 24 U/L Alanine Aminotransferase (ALT/SGPT) 20 U/L Alkaline Phosphatase 164 U/L Troponin I < 0.015 ng/ml 0.038 ng/ml Pro-B-Type Natriuretic Peptide > 68153 pg/ml Total Protein 7.8 gm/dl Albumin 2.9 gm/dl Globulin 4.9 gm/dl Albumin/Globulin Ratio 0.6 Ammonia 18.5 umol/L Urine Color DK YELLOW Urine Appearance CLEAR Urine pH 5.0 Urine Specific [place] 1.011 Urine Protein NEG Urine Glucose (UA) NEG Urine Ketones NEG Urine Occult Blood 3+ Urine Nitrite NEG Urine Bilirubin NEG Urine Urobilinogen NEG Urine Leukocyte Esterase TRACE Urine WBC (Auto) 5-10 /hpf Urine RBC (Auto) 10-30 /hpf Urine Hyaline Casts (Auto) 5-10 /lpf Urine Epithelial Cells (Auto) 20-30 /lpf Urine Bacteria (Auto) NEG Urine Yeast (Auto) . Test 05/24/17 02:19 05/24/17 05:46 Troponin I 0.038 ng/ml White Blood Count 7.78 K/uL Red Blood Count 4.29 M/uL Hemoglobin 12.5 g/dL Hematocrit 38.5 % Mean Corpuscular Volume 89.7 fL Mean Corpuscular Hemoglobin 29.1 pg Mean Corpuscular Hemoglobin Concent 32.5 g/dl RDW Standard Deviation 79.8 fL RDW Coefficient of Variation 24.8 % Platelet Count 300 K/uL Mean Platelet Volume 9.1 fL Prothrombin Time 41.0 SECONDS Prothromb Time International Ratio 4.0 Sodium Level 135 mmol/L Potassium Level 4.4 mmol/L Chloride Level 99 mmol/L Carbon Dioxide Level 25 mmol/L Anion Gap 11.0 mmol/L Blood Urea Nitrogen 41 mg/dl Creatinine 2.48 mg/dl Est Creatinine Clear Calc Drug Dose 24.5 ml/min Estimated GFR () 26.8 Estimated GFR (Non- 23.1 BUN/Creatinine Ratio 16.6 Random Glucose 93 mg/dl Calcium Level 9.1 mg/dl Magnesium Level 2.0 mg/dl Total Bilirubin 3.3 mg/dl Direct Bilirubin 2.6 mg/dl Aspartate Amino Transf (AST/SGOT) 20 U/L Alanine Aminotransferase (ALT/SGPT) 16 U/L Alkaline Phosphatase 136 U/L Total Protein 6.6 gm/dl Albumin 2.2 gm/dl Triglycerides Level 69 mg/dl Cholesterol Level 102 mg/dl HDL Cholesterol 17 mg/dl LDL Cholesterol, Calculated 71 mg/dl VLDL Cholesterol, Calculated 14 mg/dl Cholesterol/HDL Ratio 6.0
--- NOTE | 2017-05-24 12:20 | ECHOCARDIOGRAM REPORT ---
*NOTICE TO RECEIVING REPUBLICAN AGENCY This information is strictly Confidential and protected under [place] law. [place] law prohibits you from making any further disclosure of this information unless further disclosure is expressly permitted by the written consent of the person to whom it pertains or is authorized by law. A general authorization for the release of medical or other information is not sufficient for this purpose. Hospital accepts no responsibility if the information is made available to any other person, INCLUDING THE PATIENT. Interpretation Summary * Name: JUDAH SHELDON Study Date: 05/24/2017 09:49 AM BP: 91/58 mmHg * Patient Location: [facility]\S\N283\S\2 HR: 67 * : 1935 (M/d/yyy) Gender: Male Height: 69 in * Age: 81 yrs Ethnicity: [place] Weight: 189 lb * Ordering Physician: Inocencia Reeves * Referring Physician: Self, Referred * Performed By: Tracy Pelayo RDCS * * Reason For Study: CHF * BSA: 2.0 m2 * -- Conclusions -- * The left ventricle is normal in size. * There is normal left ventricular wall thickness. * There is severe global hypokinesis of the left ventricle. * Septal motion is consistent with conduction abnormality. * Ejection Fraction = 15-20%. * The left atrium is mildly dilated. * The right atrium is mild to moderately dilated. * The right ventricular systolic function is mildly reduced. * An annuloplasty ring is noted in the mitral position. * The mitral valve leaflets are thickened and restricted in mobility. * At least mild mitral stenosis is suspected * There is moderate to severe tricuspid regurgitation. * Right ventricular systolic pressure is elevated at 40-50mmHg. Procedure Details * A complete two-dimensional transthoracic echocardiogram was performed (2D, M-mode, Doppler and color flow Doppler). * A contrast injection of Definity was performed to improve assessment of LV function. * Contrast was injected into an intravenous site in the left arm. * One vial of Definity ultrasound contrast was diluted in normal saline to a total volume of 10 ml. A total of '3' ml of solution was administered during imaging. * Lot # [id number] of Definity utilized for procedure. * Expiration date 1 FEB 19. * The attending nurse who injected the contrast agent was Isaías Benavides RN. Left Ventricle * The left ventricle is normal in size. * There is normal left ventricular wall thickness. * Ejection Fraction = 15-20%. * There is severe global hypokinesis of the left ventricle. * Septal motion is consistent with conduction abnormality. Right Ventricle * There is a pacemaker lead in the right ventricle. * There is normal right ventricular wall thickness. * The right ventricular systolic function is mildly reduced. Atria * The left atrium is mildly dilated. * The right atrium is mild to moderately dilated. * No ASD detected; PFO is not assessed. Mitral Valve * The posterior mitral leaflet is thickened and fixed consistent with prior mitral repair surgery. * At least mild mitral stenosis is suspected * There is trace mitral regurgitation. * An annuloplasty ring is noted in the mitral position. * The mitral valve leaflets are thickened and restricted in mobility. Tricuspid Valve * The tricuspid valve anatomy is normal. * The tricuspid valve is normal. * There is no tricuspid stenosis. * There is moderate to severe tricuspid regurgitation. * Right ventricular systolic pressure is elevated at 40-50mmHg. Aortic Valve * The aortic valve is trileaflet. * Aortic valve sclerosis moderate, without significant aortic valvular stenosis. * No aortic regurgitation is present. Pulmonic Valve * The pulmonic valve is not well visualized. Great Vessels * The aortic root is normal size. Pericardium/Pleural * There is no pericardial effusion. Great Vessels * The inferior vena cava is moderately dilated. MMode 2D Measurements and Calculations IVSd 0.81 cm LVIDd 5.3 cm LVIDs 4.5 cm LVPWd 0.83 cm IVS/LVPW 0.98 FS 14.3 % EDV(Teich) 132.5 ml ESV(Teich) 92.6 ml EF(Teich) 30.1 % EDV(cubed) 144.8 ml ESV(cubed) 91.3 ml EF(cubed) 36.9 % LV mass(C)d 153.0 grams LV mass(C)dI 75.9 grams/m\S\2 SV(Teich) 39.9 ml SI(Teich) 19.8 ml/m\S\2 SV(cubed) 53.5 ml SI(cubed) 26.5 ml/m\S\2 ACS 1.5 cm LA dimension 4.2 cm asc Aorta Diam 3.2 cm LVOT diam 2.6 cm LVOT area 5.5 cm\S\2 LVAd ap4 28.2 cm\S\2 LVLd ap4 7.8 cm EDV(MOD-sp4) 85.5 ml EDV(sp4-el) 86.5 ml LVAs ap4 22.4 cm\S\2 LVLs ap4 7.5 cm ESV(MOD-sp4) 58.3 ml ESV(sp4-el) 56.9 ml EF(MOD-sp4) 31.9 % EF(sp4-el) 34.2 % LVAd ap2 25.3 cm\S\2 LVLd ap2 7.3 cm EDV(MOD-sp2) 71.7 ml EDV(sp2-el) 74.5 ml LVAs ap2 21.2 cm\S\2 LVLs ap2 7.4 cm ESV(MOD-sp2) 50.0 ml ESV(sp2-el) 51.7 ml EF(MOD-sp2) 30.3 % EF(sp2-el) 30.6 % LVLd %diff -7.07 % EDV(MOD-bp) 80.7 ml LVLs %diff -1.91 % ESV(MOD-bp) 53.7 ml EF(MOD-bp) 33.4 % SV(MOD-sp4) 27.3 ml SI(MOD-sp4) 13.5 ml/m\S\2 SV(MOD-sp2) 21.7 ml SI(MOD-sp2) 10.8 ml/m\S\2 SV(MOD-bp) 27.0 ml SI(MOD-bp) 13.4 ml/m\S\2 SV(sp4-el) 29.6 ml SI(sp4-el) 14.7 ml/m\S\2 SV(sp2-el) 22.8 ml SI(sp2-el) 11.3 ml/m\S\2 Doppler Measurements and Calculations MV E max rhina 144.8 cm/sec MV A max rhina 165.1 cm/sec MV E/A 0.88 MV V2 max 190.0 cm/sec MV max PG 14.4 mmHg MV V2 mean 108.6 cm/sec MV mean PG 5.7 mmHg MV V2 VTI 47.4 cm MV dec time 0.26 sec Ao V2 max 93.1 cm/sec Ao max PG 3.5 mmHg Ao max PG (full) 2.4 mmHg KALEB(V,A) 3.1 cm\S\2 KALEB(V,D) 3.1 cm\S\2 LV V1 max PG 1.1 mmHg LV V1 max 52.8 cm/sec PA V2 max 63.8 cm/sec PA max PG 1.6 mmHg PA acc slope 329.6 cm/sec\S\2 PA acc time 0.10 sec PI max rhina 194.1 cm/sec PI max PG 15.1 mmHg PI dec slope 177.1 cm/sec\S\2 PI P1/2t 321.0 msec TR max rhina 255.1 cm/sec PA pr(Accel) 34.6 mmHg
--- NOTE | 2017-05-24 12:50 | Nephrology Consultation ---
Nephrology Consultation Date of Consultation: May 24, 2017. Attending Physician: Dr Ashford Requesting Physician: Dr Ashford Reason for Consultation: NAM on CKD History of Present Illness 81 year old male w/ severe mitral rgg and nonischemic CHIEF OF ANESTHESIOLOGY EF 20-25%, CKD 3 sent from cardiology clinic yesterday d/t concerns about refractory volume overload w / 24 lb wt gain and mental status changes. His presenting creatinine yesterday was 2.4 w/ normal liver enzymes; this am is 2.5. He was started on lasix 40 mg iv bid, though lasix was held last evening; he did have a dose of 20 mg IV lasix last evening and also yesterday afternoon. Vascular congestion on CXR this am is improved. He was on lasix 40/20 and aldactone 25 daily and lisinopril 10 mg daily prior to admission. his baseline creatinine is in mid 1' s. aldactone may have been relatively new med for him. Repeat TTE done here today shows EF 15-20% w/ severe diffuse LV dysfunction and moderately elevated R heart pressures, m-moderate stenosis of repaired mitral valve. Pt states he feels fine and can't understand why there is so much concern; did not notice / suffer w/ wt gain. 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 -paroxysmal A fib on coumadin -paroxysmal SVT -HTN Family History FH: heart disease MOTHER Social History Smoking Status: Unknown if Ever Smoked Drug Use: none Marital Status: Housing Status: lives with significant other Allergies Coded Allergies: No Known Allergies (Unverified , 07/14/14) pt Medications Current Inpatient Medications Medications (Trade) Dose Ordered Sig/Genoveva Route Start Time Stop Time Status Last Admin Dose Admin Acetaminophen (Tylenol Tab) 650 mg Q4H PRN PO 05/23/17 14:30 06/22/17 14:29 Al Hydrox/Mg Hydrox/Simethicone (Maalox Max Susp) 15 ml Q4H PRN PO 05/23/17 14:30 06/22/17 14:29 Magnesium Hydroxide (Milk Of Magnesia Susp) 30 ml Q12H PRN PO 05/23/17 14:30 06/22/17 14:29 Nitroglycerin (Nitrostat Tab) 0.4 mg UD PRN SL 05/23/17 14:30 06/22/17 14:29 Polyethylene (Miralax Powder Packet) 17 gm DAILY PRN PO 05/23/17 14:30 06/22/17 14:29 Furosemide 40 mg/ Syringe 4 ml @ 4 mls/min Q12@0600,1800 IV 05/23/17 21:00 06/22/17 20:59 Aspirin (Ecotrin Tab) 81 mg DAILY PO 05/24/17 09:00 06/23/17 08:59 Metoprolol Succinate (Toprol Xl Tab) 50 mg DAILY PO 05/24/17 09:00 06/23/17 08:59 Pantoprazole Sodium (Protonix Tab) 40 mg DAILY PO 05/24/17 09:00 06/23/17 08:59 Magnesium Oxide (Mag-Ox Tab) 400 mg DAILY PO 05/24/17 09:00 06/23/17 08:59 Home Meds and Scripts Medications Dose Route/Sig Max Daily Dose Days Date Category Dose Instructions Magnesium (Magnesium Oxide (Mg Supplement) 400 Mg Cap 1 Cap PO DAILY 05/23/17 Reported Furosemide 40 Mg Tab 1.5 Tab PO BID 30 05/23/17 Rx Metoprolol Succinate ER (Metoprolol Succinate) 50 Mg Tabcr 2 Tab PO DAILY 05/23/17 Reported Spironolactone 25 Mg Tab 25 Mg PO DAILY 05/23/17 Reported Jantoven (Warfarin Sodium) 5 Mg Tab 2.5 Mg PO DAILY 06/13/16 Reported Zestril (Lisinopril) 20 Mg Tab 0.5 Tab PO DAILY 06/22/14 Reported Prilosec (Omeprazole) 20 Mg Capcr 20 Mg PO DAILY 06/22/14 Reported Amoxil (Amoxicillin) 500 Mg Cap 2,000 Mg PO DIRECTED 08/08/12 Reported take prior to dental procedures Ecotrin Or Generic (Aspirin) 81 Mg Tab 81 Mg PO DAILY 01/31/12 Reported Review of Systems Constitutional: No fever, No weakness, No fatigue Eyes: No worsening of vision ENT: No hearing loss Respiratory: No cough, No shortness of breath Cardiac: + edema, No chest pain, No orthopnea Abdomen: + problem reported (ant abd wall swelling), No pain, No nausea, No vomiting, No diarrhea, No constipation Musculoskeletal: No joint pain, No muscle pain Male : No dysuria, No urinary frequency, No incontinence Neuro: No memory loss, No weakness, No balance problems Psych: No depression symptoms, No anxiety Heme: No abnormal bleeding/bruising Endo: No fatigue, No excessive thirst, No excessive urination Skin: No new/changing skin lesions Physical Exam Date Time Temp Pulse Resp B/P (MAP) Pulse Ox O2 Delivery O2 Flow Rate FiO2 05/24/17 07:38 36.3 67 20 91/58 (69) 95 05/24/17 06:00 72 96/60 (72) 05/24/17 04:42 36.3 67 18 97/63 (74) 93 Room Air 05/24/17 04:00 Room Air 05/24/17 00:00 Room Air 05/23/17 23:56 36.3 70 18 93/58 (70) 92 Room Air 05/23/17 21:30 74 18 92/57 (69) 74 96/63 (74) 05/23/17 20:02 36.1 84 18 113/74 Room Air 05/23/17 17:46 73 25 113/74 94 05/23/17 16:32 73 25 94 05/23/17 16:02 70 19 97 05/23/17 15:32 69 29 98 05/23/17 15:02 69 20 97 05/23/17 14:32 69 16 93 05/23/17 14:02 71 26 100 05/23/17 13:57 69 18 96 05/23/17 13:27 69 24 97 05/23/17 12:57 69 21 93 05/23/17 12:55 99 Room Air 05/23/17 12:55 99 Room Air 05/23/17 12:39 67 18 113/74 96 Room Air 05/23/17 12:38 68 05/23/17 12:35 113/74 General Appearance: WD/WN, no apparent distress, + pertinent finding (lying flat on RA A & 0 x 3 but ? insight) Eyes: EOMI (nonicteric) ENT: hearing grossly normal Neck: supple Respiratory/Chest: + decreased breath sounds (michael R base), + crackles ( bibasilar) Cardiovascular: regular rate, rhythm, + systolic murmur Abdomen: normal bowel sounds, non tender, soft, + pertinent finding (ascites and trace ant wall edema) Extremities: + pedal edema, + swelling (3+ edema to legs) Neurologic/Psych: alert, normal mood/affect, oriented x 3 Skin: no jaundice, warm/dry, no rash Diagnostics Last 24 Hours Test 05/23/17 13:20 05/23/17 14:55 05/23/17 20:29 05/24/17 01:45 White Blood Count 8.66 K/uL Red Blood Count 4.71 M/uL Hemoglobin 13.8 g/dL Hematocrit 42.5 % Mean Corpuscular Volume 90.2 fL Mean Corpuscular Hemoglobin 29.3 pg Mean Corpuscular Hemoglobin Concent 32.5 g/dl Platelet Count 318 K/uL Mean Platelet Volume 9.7 fL Neutrophils (%) (Auto) 72.7 % Lymphocytes (%) (Auto) 15.9 % Monocytes (%) (Auto) 9.7 % Eosinophils (%) (Auto) 0.7 % Basophils (%) (Auto) 0.5 % Neutrophils # (Auto) 6.30 K/uL Lymphocytes # (Auto) 1.38 K/uL Monocytes # (Auto) 0.84 K/uL Eosinophils # (Auto) 0.06 K/uL Basophils # (Auto) 0.04 K/uL RDW Standard Deviation 80.4 fL RDW Coefficient of Variation 24.8 % Immature Granulocyte % (Auto) 0.5 % Immature Granulocyte # (Auto) 0.04 K/uL Anisocytosis PRESENT Echinocytes 1+ Prothrombin Time 53.5 SECONDS Prothromb Time International Ratio 5.3 Activated Partial Thromboplast Time 43.9 SECONDS Partial Thromboplastin Ratio 1.7 Sodium Level 134 mmol/L Potassium Level 4.8 mmol/L Chloride Level 98 mmol/L Carbon Dioxide Level 25 mmol/L Anion Gap 11.0 mmol/L Blood Urea Nitrogen 34 mg/dl Creatinine 2.44 mg/dl Est Creatinine Clear Calc Drug Dose 24.9 ml/min Estimated GFR () 27.3 Estimated GFR (Non- 23.6 BUN/Creatinine Ratio 14.1 Random Glucose 90 mg/dl Calcium Level 9.6 mg/dl Total Bilirubin 4.7 mg/dl Aspartate Amino Transf (AST/SGOT) 24 U/L Alanine Aminotransferase (ALT/SGPT) 20 U/L Alkaline Phosphatase 164 U/L Troponin I < 0.015 ng/ml 0.038 ng/ml Pro-B-Type Natriuretic Peptide > 08327 pg/ml Total Protein 7.8 gm/dl Albumin 2.9 gm/dl Globulin 4.9 gm/dl Albumin/Globulin Ratio 0.6 Ammonia 18.5 umol/L Urine Color DK YELLOW Urine Appearance CLEAR Urine pH 5.0 Urine Specific [place] 1.011 Urine Protein NEG Urine Glucose (UA) NEG Urine Ketones NEG Urine Occult Blood 3+ Urine Nitrite NEG Urine Bilirubin NEG Urine Urobilinogen NEG Urine Leukocyte Esterase TRACE Urine WBC (Auto) 5-10 /hpf Urine RBC (Auto) 10-30 /hpf Urine Hyaline Casts (Auto) 5-10 /lpf Urine Epithelial Cells (Auto) 20-30 /lpf Urine Bacteria (Auto) NEG Urine Yeast (Auto) . Test 05/24/17 02:19 05/24/17 05:46 Troponin I 0.038 ng/ml White Blood Count 7.78 K/uL Red Blood Count 4.29 M/uL Hemoglobin 12.5 g/dL Hematocrit 38.5 % Mean Corpuscular Volume 89.7 fL Mean Corpuscular Hemoglobin 29.1 pg Mean Corpuscular Hemoglobin Concent 32.5 g/dl RDW Standard Deviation 79.8 fL RDW Coefficient of Variation 24.8 % Platelet Count 300 K/uL Mean Platelet Volume 9.1 fL Prothrombin Time 41.0 SECONDS Prothromb Time International Ratio 4.0 Sodium Level 135 mmol/L Potassium Level 4.4 mmol/L Chloride Level 99 mmol/L Carbon Dioxide Level 25 mmol/L Anion Gap 11.0 mmol/L Blood Urea Nitrogen 41 mg/dl Creatinine 2.48 mg/dl Est Creatinine Clear Calc Drug Dose 24.5 ml/min Estimated GFR () 26.8 Estimated GFR (Non- 23.1 BUN/Creatinine Ratio 16.6 Random Glucose 93 mg/dl Calcium Level 9.1 mg/dl Magnesium Level 2.0 mg/dl Total Bilirubin 3.3 mg/dl Direct Bilirubin 2.6 mg/dl Aspartate Amino Transf (AST/SGOT) 20 U/L Alanine Aminotransferase (ALT/SGPT) 16 U/L Alkaline Phosphatase 136 U/L Total Protein 6.6 gm/dl Albumin 2.2 gm/dl Triglycerides Level 69 mg/dl Cholesterol Level 102 mg/dl HDL Cholesterol 17 mg/dl LDL Cholesterol, Calculated 71 mg/dl VLDL Cholesterol, Calculated 14 mg/dl Cholesterol/HDL Ratio 6.0 Diagnostic Radiology: CXR improved vasc congestion this am Assessment & Plan 81 y/o M w/ severe valvular disease, abnormal SVC anatomy, pAF, nonischemic CHIEF OF ANESTHESIOLOGY EF 20%, CKD 3 baseline creatinine mid 1's admitted with volume overload, creatinine 2.4. NAM on CKD 3 His urine is inflamed but no infection. electrolytes acceptable as is anemia. lower blood pressures in 90s systolic -- he tends to run in 100s -110s as an outpt. He has no casey and need to ensure no obstruction though nursing states he has been voiding accurately/well -PVR once for completeness and casey/str cath if > 200 mL retained urine -continue routine HF measures >> strict I/O, daily standing wt, <2 gm daily Na diet, fluid limit 1.2L -daily bmp -no urgent dialysis indicated -f/u cardiology recs -agree w/ current lasix dosing 40 mg iv bid as tolerated Appreciate consult; will follow with you.
--- NOTE | 2017-05-24 18:50 | Progress Note ---
Progress Note Date of Service May 24, 2017. Progress Note Subjective: Patient denies pain or shortness of breath Physical Exam General Appearance: no acute distress Head: normocephalic, atraumatic Eyes: normal inspection, EOMI ENT: pharynx normal Neck: supple, trachea midline Respiratory/Chest: no respiratory distress, no accessory muscle use, no wheezing, fair air entry Cardiovascular: regular rate, rhythm, + systolic murmur Abdomen/GI: normal bowel sounds, non tender, soft Back: no CVA tenderness Extremities/Musculoskelatal: no calf tenderness, bilateral lower extremity edema Neurologic/Psych: alert, awake, verbal Plan: As per admission history and physical: 81 yo M with complex cardiac hx of severe ischemic cardiomyopathy with systolic and diastolic dysfunction , 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 Patient sent form cardiology office for volume overload , increased lower ext edema, weight gain and dyspnea on exertion Echocardiogram on 05/24/17 The left ventricle is normal in size. There is normal left ventricular wall thickness. There is severe global hypokinesis of the left ventricle. Septal motion is consistent with conduction abnormality. Ejection Fraction = 15-20%. The left atrium is mildly dilated. The right atrium is mild to moderately dilated. The right ventricular systolic function is mildly reduced. An annuloplasty ring is noted in the mitral position. The mitral valve leaflets are thickened and restricted in mobility. At least mild mitral stenosis is suspected There is moderate to severe tricuspid regurgitation. Right ventricular systolic pressure is elevated at 40-50mmHg. As per cardiology evaluation: advanced, end stage congestive heart failure IV diuretic as per cardiology service recommendations Continue to hold lisinopril as well as the recently added spironolactone. Continue Toprol XL, ASA, and Magnesium as prescribed. Await TTE findings. CXR on 05/24/17 AM 1. Cardiomegaly and AICD. Pulmonary vascular congestion has almost completely resolved. 2. Small pleural effusions are seen on the lateral view. 3. Bibasilar airspace opacities likely represent atelectasis Warfarin held because supratherapeutic INR. NAM on CKD Stage 3 As per nephrology consult -PVR once for completeness and casey/str cath if > 200 mL retained urine -continue routine HF measures >> strict I/O, daily standing wt, <2 gm daily Na diet, fluid limit 1.2L -daily bmp -no urgent dialysis indicated DVT ppx: elevated INR due to coumadin
[2017-05-25 04:17] VITALS: BP 120/74; PULSE 81; TEMP 36.3; O2SAT 97
[2017-05-25] MEDS: FUROSEMIDE INJ 40 MG in SYRINGE 0 ML IV SCH ×2 (05:54→17:27)
[2017-05-25 07:36] VITALS: BP 109/64; PULSE 75; TEMP 36.3; O2SAT 90
[2017-05-25 08:00] LABS: HEMATOCRIT 36.4 % (42-52); HEMOGLOBIN 11.9 g/dL (14.0-18.0); MEAN CELL VOLUME 89.2 fL (80-100); MEAN CORPUSCULAR HEMOGLOBIN 29.2 pg (25-34); MEAN CORPUSCULAR HGB CONC 32.7 g/dl (32-36); MEAN PLATELET VOLUME 9.1 fL (7.4-10.4); PLATELET COUNT 263 K/uL (130-400); RED CELL DISTRIBUTION WIDTH CV 24.2 % (11.5-14.5); RED CELL DISTRIBUTION WIDTH SD 77.4 fL (36.4-46.3); WHITE BLOOD COUNT 6.77 K/uL (4.8-10.8)
[2017-05-25 08:36] LABS: ALBUMIN 2.3 gm/dl (3.4-5.0); CALCIUM 8.6 mg/dl (8.5-10.1); CREATININE 2.69 mg/dl (0.60-1.40); POTASSIUM 3.8 mmol/L (3.5-5.1)
[2017-05-25 08:39] LABS: TOTAL PROTEIN 6.5 gm/dl (6.4-8.2)
[2017-05-25] MEDS: ASPIRIN 81 MG ECTAB PO SCH (09:11)
[2017-05-25] MEDS: MAGNESIUM OXIDE 400 MG TAB PO SCH (09:11)
[2017-05-25] MEDS: METOPROLOL SUCC 50MG EXT REL TAB PO SCH (09:11)
[2017-05-25] MEDS: PANTOprazole SOD 40 MG TAB PO SCH (09:11)
[2017-05-25] MEDS ORDERED: PHYTONADIONE INJ 2.5 MG in SODIUM CHLORIDE 0.9% 50ML 50 ML IV ONE (10:15)
[2017-05-25 11:56] VITALS: BP 109/71; PULSE 77; TEMP 36.4; O2SAT 96
--- NOTE | 2017-05-25 15:03 | DIAGNOSTIC IMAGING REPORT ---
BILIARY ULTRASOUND CLINICAL HISTORY: elevated INR COMPARISON STUDY: None FINDINGS: The pancreas appeared normal as visualized. No gallstones were visualized. There is a small amount of sludge in the gallbladder. There is no ductal dilatation. The common bile duct measured 6 mm. There is mild coarsened hepatic echogenicity. No focal hepatic masses are visualized. There is no right-sided hydronephrosis. There is ascites. IMPRESSION: 1. No hepatic or pancreatic masses identified 2. Small amount of sludge in the gallbladder. No shadowing calculi identified 3. No evidence of ductal dilatation 4. Low volume ascites Electronically signed by: Vishal Martinez M.D. 05/25/2017 3:02 PM Dictated Date/Time: 05/25/2017 3:00 PM
[2017-05-25 15:33] VITALS: BP 122/75; PULSE 72; TEMP 36.5; O2SAT 94
--- NOTE | 2017-05-25 18:03 | Cardiology Follow-Up ---
Subjective General Date of Service: May 25, 2017. Chief Complaint: follow up LE edema, abdominal bloating Pt evaluation today including: conversation w/ patient, physical exam History of Present Illness The patient is a 81 year old male seen in follow up. The patient wants to know when he is going home. He states he is not short of breath. He has severe lower extremity edema however on exam and his abdomen is markedly swollen. His intake and output summary states that he had 1.6 L of urinary output yesterday of 1.3 thus far today. Allergies Coded Allergies: No Known Allergies (Unverified , 07/14/14) pt Social History Smoking Status: Unknown if Ever Smoked Hx Tobacco Use In Past Year?: No ([id number] smoked only) Hx Alcohol Use - Type And Amou: No Hx Substance Use - Type And Am: No Problem List Medical Problems: (1) Congestive heart failure Status: Acute (2) Hypoxia Status: Acute (3) Lower extremity edema Status: Acute (4) Pulmonary edema Status: Acute Physical Exam Vital Signs Last Vital Signs Documentation Date Time Temp Pulse Resp B/P (MAP) Pulse Ox O2 Delivery O2 Flow Rate FiO2 05/25/17 16:00 Room Air 05/25/17 15:33 36.5 72 18 122/75 (91) 94 Physical Exam Constitutional: Level of Distress: acutely ill, chronically ill Psychiatric: Mental Status: active & alert Orientation: to place, to person, not oriented to time Memory: remote memory normal, recent memory abnormal Head: normocephalic, atraumatic Eyes: Pupils: pertinent finding (icterus ) Neck: pertinent finding (Eleveted JVP. + HJR) Lungs: Auscultation: no wheezing, no rhonchi, deminished air movement, decreased breath sounds, rales/crackles on the left, rales/crackles on the right Cardiovascular: Heart Auscultation: RRR, no rubs, II/ J LUIS, gallop Peripheral Pulses: Radial Pulse: normal on the left, normal on the right Dorsalis Pedis Pulse: absent on the left, absent on the right Abdomen: Bowel Sounds: normal Inspection & Palpation: no masses, distended Liver: hepatomegaly Extremities: no cyanosis, no clubbing, edema (2+ bilateral lower extremity edema to the thighs) Neurologic: Cranial Nerves: grossly intact Assessment and Plan Assessment and Plan Impression: 81-year-old male 1. Acute decompensation of right greater than left systolic and diastolic heart failure with anasarca type presentation, and suggestion of congestive hepatopathy with resultant coagulopathy. 2. Echocardiogram performed this admission revealed severe left ventricular systolic dysfunction LVEF 15-20% with findings of right ventricular systolic dysfunction and elevated right ventricular systolic pressure, tricuspid regurgitation Plan: Agree with dose of IV vitamin K as prescribed earlier today. Hold Coumadin. Continue diuretic therapy. I had a long discussion with the patient regarding the importance of staying in the hospital receiving IV diuretic therapy. Laboratory Results Last 24 Hours Test 05/25/17 07:40 White Blood Count 6.77 K/uL Red Blood Count 4.08 M/uL Hemoglobin 11.9 g/dL Hematocrit 36.4 % Mean Corpuscular Volume 89.2 fL Mean Corpuscular Hemoglobin 29.2 pg Mean Corpuscular Hemoglobin Concent 32.7 g/dl RDW Standard Deviation 77.4 fL RDW Coefficient of Variation 24.2 % Platelet Count 263 K/uL Mean Platelet Volume 9.1 fL Prothrombin Time 60.4 SECONDS Prothromb Time International Ratio 6.0 Sodium Level 137 mmol/L Potassium Level 3.8 mmol/L Chloride Level 99 mmol/L Carbon Dioxide Level 29 mmol/L Anion Gap 9.0 mmol/L Blood Urea Nitrogen 43 mg/dl Creatinine 2.69 mg/dl Est Creatinine Clear Calc Drug Dose 20.8 ml/min Estimated GFR () 24.3 Estimated GFR (Non- 20.9 BUN/Creatinine Ratio 16.0 Random Glucose 105 mg/dl Calcium Level 8.6 mg/dl Magnesium Level 1.9 mg/dl Total Bilirubin 2.8 mg/dl Direct Bilirubin 2.2 mg/dl Aspartate Amino Transf (AST/SGOT) 21 U/L Alanine Aminotransferase (ALT/SGPT) 17 U/L Alkaline Phosphatase 139 U/L Total Protein 6.5 gm/dl Albumin 2.3 gm/dl
[2017-05-25 19:20] VITALS: BP 103/65; PULSE 73; TEMP 36.7; O2SAT 95
--- NOTE | 2017-05-25 19:22 | Progress Note ---
Internal Med Progress Note Date of Service: May 25, 2017. Provider Documentation: Subjective: Patient denies pain or shortness of breath. INR today was 6. patient has excoriations with bleeding after scratching old scabs. IV Vitamin K given Physical Exam General Appearance: no acute distress Head: normocephalic, atraumatic Eyes: normal inspection, EOMI ENT: pharynx normal Neck: supple, trachea midline Respiratory/Chest: no respiratory distress, no accessory muscle use, no wheezing, fair air entry Cardiovascular: regular rate, rhythm, + systolic murmur Abdomen/GI: normal bowel sounds, non tender, soft Back: no CVA tenderness Extremities/Musculoskelatal: no calf tenderness, bilateral lower extremity edema, excoriations on arm Neurologic/Psych: alert, awake, verbal ASSESSMENT & PLAN: As per admission history and physical: 81 yo M with complex cardiac hx of severe ischemic cardiomyopathy with systolic and diastolic dysfunction , 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 Patient sent form cardiology office for volume overload , increased lower ext edema, weight gain and dyspnea on exertion Echocardiogram on 05/24/17 The left ventricle is normal in size. There is normal left ventricular wall thickness. There is severe global hypokinesis of the left ventricle. Septal motion is consistent with conduction abnormality. Ejection Fraction = 15-20%. The left atrium is mildly dilated. The right atrium is mild to moderately dilated. The right ventricular systolic function is mildly reduced. An annuloplasty ring is noted in the mitral position. The mitral valve leaflets are thickened and restricted in mobility. At least mild mitral stenosis is suspected There is moderate to severe tricuspid regurgitation. Right ventricular systolic pressure is elevated at 40-50mmHg. As per cardiology evaluation: advanced, end stage congestive heart failure IV diuretic as per cardiology service recommendations Continue to hold lisinopril as well as the recently added spironolactone. Continue Toprol XL, ASA, and Magnesium as prescribed. Await TTE findings. CXR on 05/24/17 AM 1. Cardiomegaly and AICD. Pulmonary vascular congestion has almost completely resolved. 2. Small pleural effusions are seen on the lateral view. 3. Bibasilar airspace opacities likely represent atelectasis NAM on CKD Stage 3 As per nephrology consult -PVR once for completeness and casey/str cath if > 200 mL retained urine -continue routine HF measures >> strict I/O, daily standing wt, <2 gm daily Na diet, fluid limit 1.2L -daily bmp -no urgent dialysis indicated Supratherapeutic INR on admission and as per history had received Vitamin K before admission but INR went from 5.3 to 4 then to 6 despite reported history of vitamin K given and warfarin having been held. 2.5 mg IV vitamin given Ultrasound Liver 1. No hepatic or pancreatic masses identified 2. Small amount of sludge in the gallbladder. No shadowing calculi identified 3. No evidence of ductal dilatation 4. Low volume ascites DVT ppx: elevated INR due to coumadin and heart failure Vital Signs: Date Time Temp Pulse Resp B/P (MAP) Pulse Ox O2 Delivery O2 Flow Rate FiO2 05/25/17 16:00 Room Air 05/25/17 15:33 36.5 72 18 122/75 (91) 94 Room Air 05/25/17 12:00 Room Air 05/25/17 11:56 36.4 77 20 109/71 (84) 96 05/25/17 08:00 Room Air 05/25/17 07:36 36.3 75 18 109/64 (79) 90 Room Air 05/25/17 04:17 36.3 81 20 120/74 (89) 97 Room Air 05/25/17 04:00 Room Air 05/25/17 00:00 Room Air 05/24/17 23:24 36.4 74 18 94/58 (70) 93 Room Air 05/24/17 20:00 Room Air Lab Results: Results Past 24 Hours Test 05/25/17 07:40 Range/Units White Blood Count 6.77 4.8-10.8 K/uL Red Blood Count 4.08 4.7-6.1 M/uL Hemoglobin 11.9 14.0-18.0 g/dL Hematocrit 36.4 42-52 % Mean Corpuscular Volume 89.2 80-100 fL Mean Corpuscular Hemoglobin 29.2 25-34 pg Mean Corpuscular Hemoglobin Concent 32.7 32-36 g/dl RDW Standard Deviation 77.4 36.4-46.3 fL RDW Coefficient of Variation 24.2 11.5-14.5 % Platelet Count 263 130-400 K/uL Mean Platelet Volume 9.1 7.4-10.4 fL Prothrombin Time 60.4 9.0-12.0 SECONDS Prothromb Time International Ratio 6.0 0.9-1.1 Sodium Level 137 136-145 mmol/L Potassium Level 3.8 3.5-5.1 mmol/L Chloride Level 99 98-107 mmol/L Carbon Dioxide Level 29 21-32 mmol/L Anion Gap 9.0 3-11 mmol/L Blood Urea Nitrogen 43 7-18 mg/dl Creatinine 2.69 0.60-1.40 mg/dl Est Creatinine Clear Calc Drug Dose 20.8 ml/min Estimated GFR () 24.3 Estimated GFR (Non- 20.9 BUN/Creatinine Ratio 16.0 10-20 Random Glucose 105 70-99 mg/dl Calcium Level 8.6 8.5-10.1 mg/dl Magnesium Level 1.9 1.8-2.4 mg/dl Total Bilirubin 2.8 0.2-1 mg/dl Direct Bilirubin 2.2 0-0.2 mg/dl Aspartate Amino Transf (AST/SGOT) 21 15-37 U/L Alanine Aminotransferase (ALT/SGPT) 17 12-78 U/L Alkaline Phosphatase 139 45-117 U/L Total Protein 6.5 6.4-8.2 gm/dl Albumin 2.3 3.4-5.0 gm/dl
[2017-05-26] VITALS (8 sets, daily range): BP systolic 92–110; BP diastolic 49–69; PULSE 68–99; TEMP 36.3–36.8; O2SAT 90–97
[2017-05-26] MEDS: FUROSEMIDE INJ 40 MG in SYRINGE 0 ML IV SCH ×2 (06:10→17:20)
[2017-05-26 07:29] LABS: HEMATOCRIT 34.4 % (42-52); HEMOGLOBIN 11.5 g/dL (14.0-18.0); MEAN CELL VOLUME 88.9 fL (80-100); MEAN CORPUSCULAR HEMOGLOBIN 29.7 pg (25-34); MEAN CORPUSCULAR HGB CONC 33.4 g/dl (32-36); MEAN PLATELET VOLUME 9.1 fL (7.4-10.4); PLATELET COUNT 249 K/uL (130-400); RED CELL DISTRIBUTION WIDTH CV 24.6 % (11.5-14.5); RED CELL DISTRIBUTION WIDTH SD 78.8 fL (36.4-46.3); WHITE BLOOD COUNT 6.68 K/uL (4.8-10.8)
[2017-05-26 07:36] LABS: INR 1.7 (0.9-1.1)
[2017-05-26 07:57] LABS: ALBUMIN 2.5 gm/dl (3.4-5.0); CALCIUM 8.6 mg/dl (8.5-10.1); CREATININE 2.34 mg/dl (0.60-1.40); POTASSIUM 3.7 mmol/L (3.5-5.1)
[2017-05-26 08:00] LABS: TOTAL PROTEIN 6.7 gm/dl (6.4-8.2)
[2017-05-26] MEDS: ASPIRIN 81 MG ECTAB PO SCH (08:47)
[2017-05-26] MEDS: PANTOprazole SOD 40 MG TAB PO SCH (08:47)
[2017-05-26] MEDS: MAGNESIUM OXIDE 400 MG TAB PO SCH (08:47)
[2017-05-26] MEDS: METOPROLOL SUCC 50MG EXT REL TAB PO SCH (08:50)
--- NOTE | 2017-05-26 12:04 | Cardiology Follow-Up ---
Subjective General Date of Service: May 26, 2017. Chief Complaint: follow up LE edema, abdominal bloating Pt evaluation today including: conversation w/ patient, physical exam History of Present Illness The patient is a 81 year old male seen in follow up. Denies complaints, however, does still have significant leg and abdominal swelling. No orthopnea. Allergies Coded Allergies: No Known Allergies (Unverified , 07/14/14) pt Social History Smoking Status: Unknown if Ever Smoked Hx Tobacco Use In Past Year?: No ([id number] smoked only) Hx Alcohol Use - Type And Amou: No Hx Substance Use - Type And Am: No Problem List Medical Problems: (1) Congestive heart failure Status: Acute (2) Hypoxia Status: Acute (3) Lower extremity edema Status: Acute (4) Pulmonary edema Status: Acute Physical Exam Vital Signs Last Vital Signs Documentation Date Time Temp Pulse Resp B/P (MAP) Pulse Ox O2 Delivery O2 Flow Rate FiO2 05/26/17 08:50 70 92/51 (65) 05/26/17 08:00 Room Air 05/26/17 07:43 36.3 18 90 Physical Exam Constitutional: Level of Distress: acutely ill, chronically ill Psychiatric: Mental Status: active & alert Orientation: to place, to person, not oriented to time Memory: remote memory normal, recent memory abnormal Head: normocephalic, atraumatic Eyes: Pupils: pertinent finding (icterus ) Neck: pertinent finding (Eleveted JVP. + HJR) Lungs: Auscultation: no wheezing, no rhonchi, deminished air movement, decreased breath sounds, rales/crackles on the left, rales/crackles on the right Cardiovascular: Heart Auscultation: RRR, no rubs, II/ J LUIS, gallop Peripheral Pulses: Radial Pulse: normal on the left, normal on the right Dorsalis Pedis Pulse: absent on the left, absent on the right Abdomen: Bowel Sounds: normal Inspection & Palpation: no masses, distended Liver: hepatomegaly Extremities: no cyanosis, no clubbing, edema (2+ bilateral lower extremity edema to the thighs) Neurologic: Cranial Nerves: grossly intact Assessment and Plan Assessment and Plan Last Resulted 05/26/17 06:45 Last Resulted 05/26/17 06:45 Past 24 Hours Test 05/26/17 06:45 Range/Units Prothromb Time International Ratio 1.7 H 0.9-1.1 Prothrombin Time 18.1 H 9.0-12.0 SECONDS Impression: 81-year-old male 1. Acute decompensation of right greater than left systolic and diastolic heart failure with anasarca type presentation, and suggestion of congestive hepatopathy with resultant coagulopathy. 2. Echocardiogram performed this admission revealed severe left ventricular systolic dysfunction LVEF 15-20% with findings of right ventricular systolic dysfunction and elevated right ventricular systolic pressure, tricuspid regurgitation Plan: INR improved after vitamin K. Likely INR elevated due to coumadin and passive liver congestion from RHF. Resume coumadin (h/o PAF). Continue furosemide, IV. Replace potassium, repeat chem panel in am. Laboratory Results Last 24 Hours Test 05/26/17 06:45 White Blood Count 6.68 K/uL Red Blood Count 3.87 M/uL Hemoglobin 11.5 g/dL Hematocrit 34.4 % Mean Corpuscular Volume 88.9 fL Mean Corpuscular Hemoglobin 29.7 pg Mean Corpuscular Hemoglobin Concent 33.4 g/dl RDW Standard Deviation 78.8 fL RDW Coefficient of Variation 24.6 % Platelet Count 249 K/uL Mean Platelet Volume 9.1 fL Prothrombin Time 18.1 SECONDS Prothromb Time International Ratio 1.7 Sodium Level 135 mmol/L Potassium Level 3.7 mmol/L Chloride Level 98 mmol/L Carbon Dioxide Level 31 mmol/L Anion Gap 6.0 mmol/L Blood Urea Nitrogen 43 mg/dl Creatinine 2.34 mg/dl Est Creatinine Clear Calc Drug Dose 23.9 ml/min Estimated GFR () 28.7 Estimated GFR (Non- 24.8 BUN/Creatinine Ratio 18.5 Random Glucose 102 mg/dl Calcium Level 8.6 mg/dl Magnesium Level 1.9 mg/dl Total Bilirubin 2.7 mg/dl Direct Bilirubin 2.1 mg/dl Aspartate Amino Transf (AST/SGOT) 20 U/L Alanine Aminotransferase (ALT/SGPT) 16 U/L Alkaline Phosphatase 142 U/L Total Protein 6.7 gm/dl Albumin 2.5 gm/dl
[2017-05-26] MEDS ORDERED: POTASSIUM CHLORIDE 10 MEQ TABCR PO ONE (12:15)
[2017-05-26] MEDS: WARFARIN SOD 2.5 MG TAB PO SCH (17:20)
--- NOTE | 2017-05-26 17:29 | Progress Note ---
Internal Med Progress Note Date of Service: May 26, 2017. Provider Documentation: Subjective: Patient denies pain or shortness of breath. Is breathing on room air. Lower extremities still very large from edema. INR 1.7 after vitamin K given yesterday. Resume daily warfarin Physical Exam General Appearance: no acute distress Head: normocephalic, atraumatic Eyes: normal inspection, EOMI ENT: pharynx normal Neck: supple, trachea midline Respiratory/Chest: no respiratory distress, no accessory muscle use, no wheezing, fair air entry Cardiovascular: regular rate, rhythm, + systolic murmur Abdomen/GI: normal bowel sounds, non tender, soft Back: no CVA tenderness Extremities/Musculoskelatal: no calf tenderness, bilateral lower extremity edema, excoriations on arm Neurologic/Psych: alert, awake, verbal ASSESSMENT & PLAN: As per admission history and physical: 81 yo M with complex cardiac hx of severe ischemic cardiomyopathy with systolic and diastolic dysfunction , 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 Patient sent form cardiology office for volume overload , increased lower ext edema, weight gain and dyspnea on exertion Echocardiogram on 05/24/17 The left ventricle is normal in size. There is normal left ventricular wall thickness. There is severe global hypokinesis of the left ventricle. Septal motion is consistent with conduction abnormality. Ejection Fraction = 15-20%. The left atrium is mildly dilated. The right atrium is mild to moderately dilated. The right ventricular systolic function is mildly reduced. An annuloplasty ring is noted in the mitral position. The mitral valve leaflets are thickened and restricted in mobility. At least mild mitral stenosis is suspected There is moderate to severe tricuspid regurgitation. Right ventricular systolic pressure is elevated at 40-50mmHg. CXR on 05/24/17 AM 1. Cardiomegaly and AICD. Pulmonary vascular congestion has almost completely resolved. 2. Small pleural effusions are seen on the lateral view. 3. Bibasilar airspace opacities likely represent atelectasis NAM on CKD Stage 3 As per nephrology consult -PVR once for completeness and casey/str cath if > 200 mL retained urine -continue routine HF measures >> strict I/O, daily standing wt, <2 gm daily Na diet, fluid limit 1.2L -daily bmp -no urgent dialysis indicated Ultrasound Liver 05/25/17 1. No hepatic or pancreatic masses identified 2. Small amount of sludge in the gallbladder. No shadowing calculi identified 3. No evidence of ductal dilatation 4. Low volume ascites Supratherapeutic INR on admission and as per history had received Vitamin K before admission but INR went from 5.3 to 4 then to 6 despite reported history of vitamin K given and warfarin having been held. 2.5 mg IV vitamin given on and INR 1.7 on 05/26/17. Coumadin resumed As per cardiology evaluation: 1. Acute decompensation of right greater than left systolic and diastolic heart failure with anasarca type presentation, and suggestion of congestive hepatopathy with resultant coagulopathy. 2. Echocardiogram performed this admission revealed severe left ventricular systolic dysfunction LVEF 15-20% with findings of right ventricular systolic dysfunction and elevated right ventricular systolic pressure, tricuspid regurgitation DVT ppx: coumadin Vital Signs: Date Time Temp Pulse Resp B/P (MAP) Pulse Ox O2 Delivery O2 Flow Rate FiO2 05/26/17 16:00 Room Air 05/26/17 15:43 36.3 68 18 99/61 (74) 90 05/26/17 12:18 36.4 72 18 110/69 (83) 97 05/26/17 12:00 Room Air 05/26/17 08:50 70 92/51 (65) 05/26/17 08:00 Room Air 05/26/17 07:43 36.3 70 18 94/58 (70) 90 05/26/17 04:18 36.3 99 18 95/54 (68) 97 Room Air 05/26/17 04:00 Room Air 05/26/17 00:01 36.5 68 18 103/64 (77) 91 Room Air 05/26/17 00:00 Room Air 05/25/17 20:00 Room Air 05/25/17 19:20 36.7 73 20 103/65 (78) 95 Room Air Lab Results: Results Past 24 Hours Test 05/26/17 06:45 Range/Units White Blood Count 6.68 4.8-10.8 K/uL Red Blood Count 3.87 4.7-6.1 M/uL Hemoglobin 11.5 14.0-18.0 g/dL Hematocrit 34.4 42-52 % Mean Corpuscular Volume 88.9 80-100 fL Mean Corpuscular Hemoglobin 29.7 25-34 pg Mean Corpuscular Hemoglobin Concent 33.4 32-36 g/dl RDW Standard Deviation 78.8 36.4-46.3 fL RDW Coefficient of Variation 24.6 11.5-14.5 % Platelet Count 249 130-400 K/uL Mean Platelet Volume 9.1 7.4-10.4 fL Prothrombin Time 18.1 9.0-12.0 SECONDS Prothromb Time International Ratio 1.7 0.9-1.1 Sodium Level 135 136-145 mmol/L Potassium Level 3.7 3.5-5.1 mmol/L Chloride Level 98 98-107 mmol/L Carbon Dioxide Level 31 21-32 mmol/L Anion Gap 6.0 3-11 mmol/L Blood Urea Nitrogen 43 7-18 mg/dl Creatinine 2.34 0.60-1.40 mg/dl Est Creatinine Clear Calc Drug Dose 23.9 ml/min Estimated GFR () 28.7 Estimated GFR (Non- 24.8 BUN/Creatinine Ratio 18.5 10-20 Random Glucose 102 70-99 mg/dl Calcium Level 8.6 8.5-10.1 mg/dl Magnesium Level 1.9 1.8-2.4 mg/dl Total Bilirubin 2.7 0.2-1 mg/dl Direct Bilirubin 2.1 0-0.2 mg/dl Aspartate Amino Transf (AST/SGOT) 20 15-37 U/L Alanine Aminotransferase (ALT/SGPT) 16 12-78 U/L Alkaline Phosphatase 142 45-117 U/L Total Protein 6.7 6.4-8.2 gm/dl Albumin 2.5 3.4-5.0 gm/dl
[2017-05-27] VITALS (8 sets, daily range): BP systolic 101–130; BP diastolic 52–77; PULSE 68–88; TEMP 36.2–36.8; O2SAT 91–99
[2017-05-27] MEDS: FUROSEMIDE INJ 40 MG in SYRINGE 0 ML IV SCH ×2 (05:51→18:01)
[2017-05-27 06:37] LABS: HEMATOCRIT 34.3 % (42-52); HEMOGLOBIN 11.2 g/dL (14.0-18.0); MEAN CELL VOLUME 90.5 fL (80-100); MEAN CORPUSCULAR HEMOGLOBIN 29.6 pg (25-34); MEAN CORPUSCULAR HGB CONC 32.7 g/dl (32-36); PLATELET COUNT 240 K/uL (130-400); RED CELL DISTRIBUTION WIDTH CV 24.3 % (11.5-14.5); RED CELL DISTRIBUTION WIDTH SD 80.2 fL (36.4-46.3); WHITE BLOOD COUNT 6.72 K/uL (4.8-10.8)
[2017-05-27 06:47] LABS: INR 1.8 (0.9-1.1)
[2017-05-27 07:11] LABS: ALBUMIN 2.4 gm/dl (3.4-5.0); CALCIUM 8.4 mg/dl (8.5-10.1); CREATININE 2.32 mg/dl (0.60-1.40); POTASSIUM 3.7 mmol/L (3.5-5.1)
[2017-05-27 07:13] LABS: TOTAL PROTEIN 6.9 gm/dl (6.4-8.2)
[2017-05-27] MEDS: ASPIRIN 81 MG ECTAB PO SCH (08:47)
[2017-05-27] MEDS: METOPROLOL SUCC 50MG EXT REL TAB PO SCH (08:48)
[2017-05-27] MEDS: PANTOprazole SOD 40 MG TAB PO SCH (08:48)
[2017-05-27] MEDS: MAGNESIUM OXIDE 400 MG TAB PO SCH (08:48)
--- NOTE | 2017-05-27 10:53 | Cardiology Follow-Up ---
Subjective General Date of Service: May 27, 2017. Chief Complaint: follow up LE edema, abdominal bloating Pt evaluation today including: conversation w/ patient, physical exam, chart review, lab review, review of studies, review of inpatient medication list History of Present Illness Patient feeling "fine" today. No complaints of CP, SOB. Edema improving but still considerable LE edema remains. He offers no complaints. Voices his wishes to go home. Allergies Coded Allergies: No Known Allergies (Unverified , 07/14/14) pt Social History Smoking Status: Unknown if Ever Smoked Hx Tobacco Use In Past Year?: No ([id number] smoked only) Hx Alcohol Use - Type And Amou: No Hx Substance Use - Type And Am: No Problem List Medical Problems: (1) Congestive heart failure Status: Acute (2) Hypoxia Status: Acute (3) Lower extremity edema Status: Acute (4) Pulmonary edema Status: Acute Review of Systems Respiratory: No cough, No sputum, No shortness of breath, No dyspnea at rest, No hemoptysis Cardiac: + edema, No chest pain, No orthopnea, No PND, No palpitations Physical Exam Vital Signs Last Vital Signs Documentation Date Time Temp Pulse Resp B/P (MAP) Pulse Ox O2 Delivery O2 Flow Rate FiO2 05/27/17 07:09 36.8 75 18 115/64 (81) 93 Room Air Physical Exam Constitutional: Level of Distress: acutely ill, chronically ill Psychiatric: Mental Status: active & alert Orientation: to place, to person, not oriented to time Memory: remote memory normal, recent memory abnormal Head: normocephalic, atraumatic Eyes: Pupils: pertinent finding (icterus ) Neck: pertinent finding (Eleveted JVP. + HJR) Lungs: Auscultation: no wheezing, no rhonchi, deminished air movement, decreased breath sounds, rales/crackles on the left, rales/crackles on the right Cardiovascular: Heart Auscultation: RRR, no rubs, II/ J LUIS, gallop Peripheral Pulses: Radial Pulse: normal on the left, normal on the right Dorsalis Pedis Pulse: absent on the left, absent on the right Abdomen: Bowel Sounds: normal Inspection & Palpation: no masses, distended, pertinent finding (1+ edema in abdomen) Liver: hepatomegaly Extremities: no cyanosis, no clubbing, edema (2+ bilateral lower extremity edema to the thighs) Neurologic: Cranial Nerves: grossly intact Assessment and Plan Assessment and Plan Impression: 81-year-old male 1. Acute decompensation of right greater than left systolic and diastolic heart failure with anasarca type presentation, and suggestion of congestive hepatopathy with resultant coagulopathy. Clinically improving, but considerable LE edema still present. 2. Echocardiogram performed this admission revealed severe left ventricular systolic dysfunction LVEF 15-20% with findings of right ventricular systolic dysfunction and elevated right ventricular systolic pressure, tricuspid regurgitation Plan: INR improved after vitamin K. Likely INR elevated due to Coumadin and passive liver congestion from RHF. Resume Coumadin (h/o PAF). Monitor INR closely Continue furosemide, IV. Monitor potassium. Continue beta amrit given history of ventricular arrhythmias. Previously on amiodarone but discontinued as outpatient due to prolonged QT and elevated LFTs. Device interrogation demonstrates appropriate function/battery longevity and no arrhythmias. Case discussed with Dr. Poole. Will follow. Cardiology attending: Pt seen and examined, agree with findings and assessment as per Ira Perez. INR reversed, likely secondary to passive hepatic congestion with acute right sided heart failure. Coumadin to be resumed. Cont IV diuresis, still examines as volume overloaded. Laboratory Results Last 24 Hours Test 05/27/17 05:56 White Blood Count 6.72 K/uL Red Blood Count 3.79 M/uL Hemoglobin 11.2 g/dL Hematocrit 34.3 % Mean Corpuscular Volume 90.5 fL Mean Corpuscular Hemoglobin 29.6 pg Mean Corpuscular Hemoglobin Concent 32.7 g/dl RDW Standard Deviation 80.2 fL RDW Coefficient of Variation 24.3 % Platelet Count 240 K/uL Mean Platelet Volume 9.0 fL Prothrombin Time 18.9 SECONDS Prothromb Time International Ratio 1.8 Sodium Level 135 mmol/L Potassium Level 3.7 mmol/L Chloride Level 98 mmol/L Carbon Dioxide Level 29 mmol/L Anion Gap 8.0 mmol/L Blood Urea Nitrogen 43 mg/dl Creatinine 2.32 mg/dl Est Creatinine Clear Calc Drug Dose 24.1 ml/min Estimated GFR () 29.0 Estimated GFR (Non- 25.1 BUN/Creatinine Ratio 18.3 Random Glucose 92 mg/dl Calcium Level 8.4 mg/dl Magnesium Level 1.9 mg/dl Total Bilirubin 2.5 mg/dl Direct Bilirubin 1.8 mg/dl Aspartate Amino Transf (AST/SGOT) 20 U/L Alanine Aminotransferase (ALT/SGPT) 16 U/L Alkaline Phosphatase 147 U/L Total Protein 6.9 gm/dl Albumin 2.4 gm/dl
[2017-05-27] MEDS: WARFARIN SOD 2.5 MG TAB PO SCH (16:12)
--- NOTE | 2017-05-27 18:15 | Progress Note ---
Internal Med Progress Note Date of Service: May 27, 2017. Provider Documentation: Subjective: Patient denies pain or shortness of breath. Is breathing on room air. Lower extremities still very large from edema. INR 1.8 Physical Exam General Appearance: no acute distress Head: normocephalic, atraumatic Eyes: normal inspection, EOMI ENT: pharynx normal Neck: supple, trachea midline Respiratory/Chest: no respiratory distress, no accessory muscle use, no wheezing, fair air entry Cardiovascular: regular rate, rhythm, + systolic murmur Abdomen/GI: normal bowel sounds, non tender, soft Back: no CVA tenderness Extremities/Musculoskelatal: no calf tenderness, bilateral lower extremity edema, excoriations on arm healing Neurologic/Psych: alert, awake, verbal ASSESSMENT & PLAN: As per admission history and physical: 81 yo M with complex cardiac hx of severe ischemic cardiomyopathy with systolic and diastolic dysfunction , 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 Patient sent form cardiology office for volume overload , increased lower ext edema, weight gain and dyspnea on exertion Echocardiogram on 05/24/17 The left ventricle is normal in size. There is normal left ventricular wall thickness. There is severe global hypokinesis of the left ventricle. Septal motion is consistent with conduction abnormality. Ejection Fraction = 15-20%. The left atrium is mildly dilated. The right atrium is mild to moderately dilated. The right ventricular systolic function is mildly reduced. An annuloplasty ring is noted in the mitral position. The mitral valve leaflets are thickened and restricted in mobility. At least mild mitral stenosis is suspected There is moderate to severe tricuspid regurgitation. Right ventricular systolic pressure is elevated at 40-50mmHg. CXR on 05/24/17 AM 1. Cardiomegaly and AICD. Pulmonary vascular congestion has almost completely resolved. 2. Small pleural effusions are seen on the lateral view. 3. Bibasilar airspace opacities likely represent atelectasis NAM on CKD Stage 3 As per nephrology consult -PVR once for completeness and casey/str cath if > 200 mL retained urine -continue routine HF measures >> strict I/O, daily standing wt, <2 gm daily Na diet, fluid limit 1.2L -daily bmp -no urgent dialysis indicated Ultrasound Liver 05/25/17 1. No hepatic or pancreatic masses identified 2. Small amount of sludge in the gallbladder. No shadowing calculi identified 3. No evidence of ductal dilatation 4. Low volume ascites Supratherapeutic INR on admission and as per history had received Vitamin K before admission but INR went from 5.3 to 4 then to 6 despite reported history of vitamin K given and warfarin having been held. 2.5 mg IV vitamin given on and INR 1.7 on 05/26/17. Coumadin resumed. INR 1.8 on 05/28/17 As per cardiology evaluation: 1. Acute decompensation of right greater than left systolic and diastolic heart failure with anasarca type presentation, and suggestion of congestive hepatopathy with resultant coagulopathy. 2. Echocardiogram performed this admission revealed severe left ventricular systolic dysfunction LVEF 15-20% with findings of right ventricular systolic dysfunction and elevated right ventricular systolic pressure, tricuspid regurgitation DVT ppx: coumadin Vital Signs: Date Time Temp Pulse Resp B/P (MAP) Pulse Ox O2 Delivery O2 Flow Rate FiO2 05/27/17 15:07 36.4 68 16 104/64 (77) 99 Room Air 05/27/17 12:00 95 Room Air 05/27/17 11:53 36.8 88 18 105/64 (78) 95 Room Air 05/27/17 08:00 93 Room Air 05/27/17 07:09 36.8 75 18 115/64 (81) 93 Room Air 05/27/17 04:16 36.2 74 16 106/52 (70) 97 Room Air 05/27/17 04:00 Room Air 05/27/17 00:00 Room Air 05/26/17 23:08 36.3 73 16 94/49 (64) 97 Room Air 05/26/17 20:12 36.8 76 18 95/59 (71) 92 Room Air 05/26/17 20:00 Room Air Lab Results: Results Past 24 Hours Test 05/27/17 05:56 Range/Units White Blood Count 6.72 4.8-10.8 K/uL Red Blood Count 3.79 4.7-6.1 M/uL Hemoglobin 11.2 14.0-18.0 g/dL Hematocrit 34.3 42-52 % Mean Corpuscular Volume 90.5 80-100 fL Mean Corpuscular Hemoglobin 29.6 25-34 pg Mean Corpuscular Hemoglobin Concent 32.7 32-36 g/dl RDW Standard Deviation 80.2 36.4-46.3 fL RDW Coefficient of Variation 24.3 11.5-14.5 % Platelet Count 240 130-400 K/uL Mean Platelet Volume 9.0 7.4-10.4 fL Prothrombin Time 18.9 9.0-12.0 SECONDS Prothromb Time International Ratio 1.8 0.9-1.1 Sodium Level 135 136-145 mmol/L Potassium Level 3.7 3.5-5.1 mmol/L Chloride Level 98 98-107 mmol/L Carbon Dioxide Level 29 21-32 mmol/L Anion Gap 8.0 3-11 mmol/L Blood Urea Nitrogen 43 7-18 mg/dl Creatinine 2.32 0.60-1.40 mg/dl Est Creatinine Clear Calc Drug Dose 24.1 ml/min Estimated GFR () 29.0 Estimated GFR (Non- 25.1 BUN/Creatinine Ratio 18.3 10-20 Random Glucose 92 70-99 mg/dl Calcium Level 8.4 8.5-10.1 mg/dl Magnesium Level 1.9 1.8-2.4 mg/dl Total Bilirubin 2.5 0.2-1 mg/dl Direct Bilirubin 1.8 0-0.2 mg/dl Aspartate Amino Transf (AST/SGOT) 20 15-37 U/L Alanine Aminotransferase (ALT/SGPT) 16 12-78 U/L Alkaline Phosphatase 147 45-117 U/L Total Protein 6.9 6.4-8.2 gm/dl Albumin 2.4 3.4-5.0 gm/dl
[2017-05-28 03:45] VITALS: BP 116/72; PULSE 67; TEMP 36.3; O2SAT 98
[2017-05-28] MEDS: FUROSEMIDE INJ 40 MG in SYRINGE 0 ML IV SCH ×2 (05:19→17:31)
[2017-05-28 07:32] VITALS: BP 109/69; PULSE 70; TEMP 36.8; O2SAT 93
[2017-05-28] MEDS: PANTOprazole SOD 40 MG TAB PO SCH (08:33)
[2017-05-28] MEDS: ASPIRIN 81 MG ECTAB PO SCH (08:33)
[2017-05-28] MEDS: METOPROLOL SUCC 50MG EXT REL TAB PO SCH (08:34)
[2017-05-28] MEDS: MAGNESIUM OXIDE 400 MG TAB PO SCH (08:34)
[2017-05-28 09:20] LABS: ALBUMIN 2.6 gm/dl (3.4-5.0); CALCIUM 8.9 mg/dl (8.5-10.1); CREATININE 2.01 mg/dl (0.60-1.40); POTASSIUM 3.3 mmol/L (3.5-5.1)
[2017-05-28 09:23] LABS: TOTAL PROTEIN 7.3 gm/dl (6.4-8.2)
--- NOTE | 2017-05-28 09:38 | Nephrology Progress Note ---
Nephrology Progress Note Date of Service: May 28, 2017. Subjective 81 yo male with nam/volume overload/cardiomyopathy. pt says he feels good and inquiring about going home. able to walk to bathroom and back ok. still with significant edema in legs and has decreased breath sounds. appetite is good. Objective Date Time Temp Pulse Resp B/P (MAP) Pulse Ox O2 Delivery O2 Flow Rate FiO2 05/28/17 08:00 Room Air 05/28/17 07:32 36.8 70 18 109/69 (82) 93 05/28/17 04:00 Room Air 05/28/17 03:45 36.3 67 18 116/72 (87) 98 Room Air 05/28/17 00:00 Room Air 05/27/17 23:51 36.5 69 18 130/77 (94) 91 Room Air 05/27/17 20:00 Room Air 05/27/17 20:00 36.3 78 18 101/68 (79) 94 Room Air 05/27/17 16:00 Room Air 05/27/17 15:07 36.4 68 16 104/64 (77) 99 Room Air 05/27/17 12:00 95 Room Air 05/27/17 11:53 36.8 88 18 105/64 (78) 95 Room Air Physical Exam: General-aaox3 Eyes-no scleral icterus ENT-mmm Neck-supple Lungs-basilar rales Heart-distant heart sounds, 2/6 systolic murmur Abdomen-bs+ s/nt/nd Extremities-+2 edema Neuro-nonfocal Current Inpatient Medications Medications (Trade) Dose Ordered Sig/Genoveva Route Start Time Stop Time Status Last Admin Dose Admin Acetaminophen (Tylenol Tab) 650 mg Q4H PRN PO 05/23/17 14:30 06/22/17 14:29 Al Hydrox/Mg Hydrox/Simethicone (Maalox Max Susp) 15 ml Q4H PRN PO 05/23/17 14:30 06/22/17 14:29 Magnesium Hydroxide (Milk Of Magnesia Susp) 30 ml Q12H PRN PO 05/23/17 14:30 06/22/17 14:29 Nitroglycerin (Nitrostat Tab) 0.4 mg UD PRN SL 05/23/17 14:30 06/22/17 14:29 Polyethylene (Miralax Powder Packet) 17 gm DAILY PRN PO 05/23/17 14:30 06/22/17 14:29 Furosemide 40 mg/ Syringe 4 ml @ 4 mls/min Q12@0600,1800 IV 05/23/17 21:00 06/22/17 20:59 05/28/17 05:19 4 MLS/MIN Aspirin (Ecotrin Tab) 81 mg DAILY PO 05/24/17 09:00 06/23/17 08:59 05/28/17 08:33 81 MG Metoprolol Succinate (Toprol Xl Tab) 50 mg DAILY PO 05/24/17 09:00 06/23/17 08:59 05/28/17 08:34 50 MG Pantoprazole Sodium (Protonix Tab) 40 mg DAILY PO 05/24/17 09:00 06/23/17 08:59 05/28/17 08:33 40 MG Magnesium Oxide (Mag-Ox Tab) 400 mg DAILY PO 05/24/17 09:00 06/23/17 08:59 05/28/17 08:34 400 MG Warfarin Sodium (Coumadin Tab) 2.5 mg DAILY@1600 PO 05/26/17 16:00 06/25/17 15:59 05/27/17 16:12 2.5 MG Last 24 Hours Test 05/28/17 08:33 Prothrombin Time 30.8 SECONDS Prothromb Time International Ratio 3.0 Sodium Level 135 mmol/L Potassium Level 3.3 mmol/L Chloride Level 95 mmol/L Carbon Dioxide Level 32 mmol/L Anion Gap 7.0 mmol/L Blood Urea Nitrogen 39 mg/dl Creatinine 2.01 mg/dl Est Creatinine Clear Calc Drug Dose 27.9 ml/min Estimated GFR () 34.5 Estimated GFR (Non- 29.8 BUN/Creatinine Ratio 19.5 Random Glucose 135 mg/dl Calcium Level 8.9 mg/dl Total Bilirubin 2.4 mg/dl Aspartate Amino Transf (AST/SGOT) 19 U/L Alanine Aminotransferase (ALT/SGPT) 16 U/L Alkaline Phosphatase 138 U/L Total Protein 7.3 gm/dl Albumin 2.6 gm/dl Globulin 4.7 gm/dl Albumin/Globulin Ratio 0.6 Assessment & Plan NAM on Ckd stage 3-creatinine stable during hospitalization and tolerating aggressive diuresis. on lasix 40 iv q12. down about 10 kilos. continue current diuretics. feel pt would benefit from continued hospitilization and further diuresis. bp is stable. will discuss further with cardiology. unclear if he would tolerate more aggressive diuresis. feel prudent course would be to continue current medications and slowly remove fluid.
--- NOTE | 2017-05-28 10:15 | Cardiology Follow-Up ---
Subjective General Date of Service: May 28, 2017. Chief Complaint: follow up LE edema, abdominal bloating Pt evaluation today including: conversation w/ patient, physical exam, chart review, lab review, review of studies, review of inpatient medication list History of Present Illness Patient denies acute complaints. SOB improved. No chest pain. Voices his wishes to go home. Denies orthopnea, PND. Edema still present, slowly improving. Allergies Coded Allergies: No Known Allergies (Unverified , 07/14/14) pt Social History Smoking Status: Unknown if Ever Smoked Hx Tobacco Use In Past Year?: No ([id number] smoked only) Hx Alcohol Use - Type And Amou: No Hx Substance Use - Type And Am: No Problem List Medical Problems: (1) Congestive heart failure Status: Acute (2) Hypoxia Status: Acute (3) Lower extremity edema Status: Acute (4) Pulmonary edema Status: Acute Review of Systems Respiratory: No cough, No sputum, No wheezing, No shortness of breath, No dyspnea at rest, No hemoptysis Cardiac: + edema, No chest pain, No orthopnea, No PND, No palpitations Physical Exam Vital Signs Last Vital Signs Documentation Date Time Temp Pulse Resp B/P (MAP) Pulse Ox O2 Delivery O2 Flow Rate FiO2 05/28/17 08:00 Room Air 05/28/17 07:32 36.8 70 18 109/69 (82) 93 Physical Exam Constitutional: Level of Distress: NAD, chronically ill Psychiatric: Mental Status: active & alert Orientation: to place, to person, not oriented to time Memory: remote memory normal, recent memory abnormal Head: normocephalic, atraumatic Eyes: Pupils: pertinent finding (icterus ) Lungs: Auscultation: no wheezing, no rhonchi, deminished air movement, decreased breath sounds Cardiovascular: Heart Auscultation: RRR, no rubs, II/ J LUIS, gallop Peripheral Pulses: Radial Pulse: normal on the left, normal on the right Dorsalis Pedis Pulse: absent on the left, absent on the right Abdomen: Bowel Sounds: normal Inspection & Palpation: no masses, distended, pertinent finding (1+ edema in abdomen) Liver: hepatomegaly Extremities: no cyanosis, no clubbing, edema (2+ bilateral lower extremity edema to the thighs) Neurologic: Cranial Nerves: grossly intact Assessment and Plan Assessment and Plan Impression: 81-year-old male 1. Acute decompensation of right greater than left systolic and diastolic heart failure with anasarca type presentation, and suggestion of congestive hepatopathy with resultant coagulopathy. Clinically improving, but considerable LE edema still present. 2. Echocardiogram performed this admission revealed severe left ventricular systolic dysfunction LVEF 15-20% with findings of right ventricular systolic dysfunction and elevated right ventricular systolic pressure, tricuspid regurgitation 3. Hypokalemia due to diuresis. Plan: INR improved after vitamin K. Likely INR elevated due to Coumadin and passive liver congestion from RHF. Resume Coumadin (h/o PAF). Monitor INR closely Continue furosemide, IV 40 mg BID. Given borderline hypotension and renal dysfunction, continue current dose and gentle diuresis. Supplement potassium this AM Continue beta amrit given history of ventricular arrhythmias. Previously on amiodarone but discontinued as outpatient due to prolonged QT and elevated LFTs. Device interrogation demonstrates appropriate function/battery longevity and no arrhythmias. Case discussed with Dr. Poole. Will follow. Cardiology attending: Pt seen and examined, agree with findings and assessment as per Ira Perez. Pt remains with LE edema, will cont with gentle IV diuresis. Laboratory Results Last 24 Hours Test 05/28/17 08:33 Prothrombin Time 30.8 SECONDS Prothromb Time International Ratio 3.0 Sodium Level 135 mmol/L Potassium Level 3.3 mmol/L Chloride Level 95 mmol/L Carbon Dioxide Level 32 mmol/L Anion Gap 7.0 mmol/L Blood Urea Nitrogen 39 mg/dl Creatinine 2.01 mg/dl Est Creatinine Clear Calc Drug Dose 27.9 ml/min Estimated GFR () 34.5 Estimated GFR (Non- 29.8 BUN/Creatinine Ratio 19.5 Random Glucose 135 mg/dl Calcium Level 8.9 mg/dl Total Bilirubin 2.4 mg/dl Aspartate Amino Transf (AST/SGOT) 19 U/L Alanine Aminotransferase (ALT/SGPT) 16 U/L Alkaline Phosphatase 138 U/L Total Protein 7.3 gm/dl Albumin 2.6 gm/dl Globulin 4.7 gm/dl Albumin/Globulin Ratio 0.6
[2017-05-28] MEDS ORDERED: POTASSIUM CHLORIDE 20 MEQ TABCR PO ONE (10:45)
[2017-05-28 11:49] VITALS: BP 107/63; PULSE 64; TEMP 36.3; O2SAT 96
[2017-05-28 16:04] VITALS: BP 93/55; PULSE 65; TEMP 35.8; O2SAT 96
[2017-05-28] MEDS: WARFARIN SOD 2.5 MG TAB PO SCH (16:16)
--- NOTE | 2017-05-28 18:01 | Progress Note ---
Internal Med Progress Note Date of Service: May 28, 2017. Provider Documentation: SUBJECTIVE: resting comfortably afebrile says he is fine and likes to go home ambulated in room ok no nausea denies chest pain or sob OBJECTIVE: Vital Signs-as noted below Exam: General-alert and Oriented. Not in distress. ENT-normal hearing Neck-no neck masses Lungs-cta b/l no wheezing or crackles Heart-s1 and s2 heard regular no murmurs Abdomen-soft bowel sounds present non tender no distension Extremities-lower extremity edema present no erythema Neuro-alert and awake moves extremities Lab data as noted below. ASSESSMENT & PLAN: As per admission history and physical: 81 yo M with complex cardiac hx of severe ischemic cardiomyopathy with systolic and diastolic dysfunction , 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 Patient sent form cardiology office for volume overload , increased lower ext edema, weight gain and dyspnea on exertion Acute on chronic systolic CHF Ef 15-20% On IV Lasix bid i/o's daily weights says he is doing fine appreciate cardiology inputs. NAM on CKD Stage 3 As per nephrology consult cr 2 today nephrology on board and appreciate inouts f/u labs. Supratherapeutic received vitamin k 'back on Coumadin inr 3.0 today f/u inr in am. DVT ppx: Coumadin Disposition Monitor in tele Vital Signs: Date Time Temp Pulse Resp B/P (MAP) Pulse Ox O2 Delivery O2 Flow Rate FiO2 05/28/17 16:04 35.8 65 18 93/55 (68) 96 Room Air 05/28/17 16:00 Room Air 05/28/17 12:00 Room Air 05/28/17 11:49 36.3 64 18 107/63 (78) 96 Room Air 05/28/17 08:00 Room Air 05/28/17 07:32 36.8 70 18 109/69 (82) 93 05/28/17 04:00 Room Air 05/28/17 03:45 36.3 67 18 116/72 (87) 98 Room Air 05/28/17 00:00 Room Air 05/27/17 23:51 36.5 69 18 130/77 (94) 91 Room Air 05/27/17 20:00 Room Air 05/27/17 20:00 36.3 78 18 101/68 (79) 94 Room Air Lab Results: Results Past 24 Hours Test 05/28/17 08:33 Range/Units Prothrombin Time 30.8 9.0-12.0 SECONDS Prothromb Time International Ratio 3.0 0.9-1.1 Sodium Level 135 136-145 mmol/L Potassium Level 3.3 3.5-5.1 mmol/L Chloride Level 95 98-107 mmol/L Carbon Dioxide Level 32 21-32 mmol/L Anion Gap 7.0 3-11 mmol/L Blood Urea Nitrogen 39 7-18 mg/dl Creatinine 2.01 0.60-1.40 mg/dl Est Creatinine Clear Calc Drug Dose 27.9 ml/min Estimated GFR () 34.5 Estimated GFR (Non- 29.8 BUN/Creatinine Ratio 19.5 10-20 Random Glucose 135 70-99 mg/dl Calcium Level 8.9 8.5-10.1 mg/dl Total Bilirubin 2.4 0.2-1 mg/dl Aspartate Amino Transf (AST/SGOT) 19 15-37 U/L Alanine Aminotransferase (ALT/SGPT) 16 12-78 U/L Alkaline Phosphatase 138 45-117 U/L Total Protein 7.3 6.4-8.2 gm/dl Albumin 2.6 3.4-5.0 gm/dl Globulin 4.7 2.5-4.0 gm/dl Albumin/Globulin Ratio 0.6 0.9-2
[2017-05-28 19:44] VITALS: BP 100/61; PULSE 69; TEMP 36.3; O2SAT 96
[2017-05-28 23:55] VITALS: BP 100/61; PULSE 66; TEMP 36.3; O2SAT 94
[2017-05-29 04:00] VITALS: BP 105/65; PULSE 67; TEMP 36.4; O2SAT 95
[2017-05-29] MEDS: FUROSEMIDE INJ 40 MG in SYRINGE 0 ML IV SCH ×2 (05:55→18:00)
[2017-05-29 07:30] VITALS: BP 104/53; PULSE 67; TEMP 36.6; O2SAT 96
[2017-05-29] MEDS: MAGNESIUM OXIDE 400 MG TAB PO SCH (07:54)
[2017-05-29] MEDS: METOPROLOL SUCC 50MG EXT REL TAB PO SCH (07:55)
[2017-05-29] MEDS: PANTOprazole SOD 40 MG TAB PO SCH (07:55)
[2017-05-29] MEDS: ASPIRIN 81 MG ECTAB PO SCH (07:56)
[2017-05-29] MEDS: POTASSIUM CHLORIDE 20 MEQ TABCR PO SCH (07:56)
[2017-05-29 08:47] LABS: INR 4.1 (0.9-1.1)
[2017-05-29 09:12] LABS: CALCIUM 8.9 mg/dl (8.5-10.1); CREATININE 2.1 mg/dl (0.60-1.40); POTASSIUM 3.9 mmol/L (3.5-5.1)
--- NOTE | 2017-05-29 10:18 | Nephrology Progress Note ---
Nephrology Progress Note Date of Service: May 29, 2017. Subjective 81 yo male with nam/volume overload/cardiomyopathy. pt continues to want to go home. continues to have edema in the legs but appears to be improving. Objective Date Time Temp Pulse Resp B/P (MAP) Pulse Ox O2 Delivery O2 Flow Rate FiO2 05/29/17 07:30 36.6 67 16 104/53 (70) 96 Room Air 05/29/17 04:00 36.4 67 18 105/65 (78) 95 Room Air 05/29/17 04:00 Room Air 05/28/17 23:55 36.3 66 18 100/61 (74) 94 Room Air 05/28/17 23:21 Room Air 05/28/17 20:00 Room Air 05/28/17 19:44 36.3 69 20 100/61 (74) 96 Room Air 05/28/17 16:04 35.8 65 18 93/55 (68) 96 Room Air 05/28/17 16:00 Room Air 05/28/17 12:00 Room Air 05/28/17 11:49 36.3 64 18 107/63 (78) 96 Room Air Physical Exam: General-aaox3 Eyes-no scleral icterus ENT-mmm Neck-supple Lungs-decreased breath sounds at the bases Heart-distant heart sounds, 2/6 systolic murmur Abdomen-bs+ s/nt/nd Extremities-+1 to 2 edema Neuro-nonfocal Current Inpatient Medications Medications (Trade) Dose Ordered Sig/Genoveva Route Start Time Stop Time Status Last Admin Dose Admin Acetaminophen (Tylenol Tab) 650 mg Q4H PRN PO 05/23/17 14:30 06/22/17 14:29 Al Hydrox/Mg Hydrox/Simethicone (Maalox Max Susp) 15 ml Q4H PRN PO 05/23/17 14:30 06/22/17 14:29 Magnesium Hydroxide (Milk Of Magnesia Susp) 30 ml Q12H PRN PO 05/23/17 14:30 06/22/17 14:29 Nitroglycerin (Nitrostat Tab) 0.4 mg UD PRN SL 05/23/17 14:30 06/22/17 14:29 Polyethylene (Miralax Powder Packet) 17 gm DAILY PRN PO 05/23/17 14:30 06/22/17 14:29 Furosemide 40 mg/ Syringe 4 ml @ 4 mls/min Q12@0600,1800 IV 05/23/17 21:00 06/22/17 20:59 05/29/17 05:55 4 MLS/MIN Aspirin (Ecotrin Tab) 81 mg DAILY PO 05/24/17 09:00 06/23/17 08:59 05/29/17 07:56 81 MG Metoprolol Succinate (Toprol Xl Tab) 50 mg DAILY PO 05/24/17 09:00 06/23/17 08:59 05/29/17 07:55 50 MG Pantoprazole Sodium (Protonix Tab) 40 mg DAILY PO 05/24/17 09:00 06/23/17 08:59 05/29/17 07:55 40 MG Magnesium Oxide (Mag-Ox Tab) 400 mg DAILY PO 05/24/17 09:00 06/23/17 08:59 05/29/17 07:54 400 MG Warfarin Sodium (Coumadin Tab) 2.5 mg DAILY@1600 PO 05/26/17 16:00 06/25/17 15:59 Future Hold 05/28/17 16:16 2.5 MG Potassium Chloride (Klor-Con Tab) 20 meq QAM PO 05/29/17 09:00 06/28/17 08:59 05/29/17 07:56 20 MEQ Last 24 Hours Test 05/29/17 08:00 05/29/17 08:05 Prothrombin Time 42.1 SECONDS Prothromb Time International Ratio 4.1 Sodium Level 136 mmol/L Potassium Level 3.9 mmol/L Chloride Level 96 mmol/L Carbon Dioxide Level 33 mmol/L Anion Gap 6.0 mmol/L Blood Urea Nitrogen 41 mg/dl Creatinine 2.10 mg/dl Est Creatinine Clear Calc Drug Dose 26.7 ml/min Estimated GFR () 32.7 Estimated GFR (Non- 28.3 BUN/Creatinine Ratio 19.4 Random Glucose 98 mg/dl Calcium Level 8.9 mg/dl Assessment & Plan NAM on Ckd stage 3-creatinine stable during hospitalization and tolerating aggressive diuresis. on lasix 40 iv q12. continue appropriate and slow diuresis. do not feel he would tolerate more aggressive diuresis.
--- NOTE | 2017-05-29 10:36 | Cardiology Follow-Up ---
Subjective General Date of Service: May 29, 2017. Chief Complaint: follow up LE edema, abdominal bloating Pt evaluation today including: conversation w/ patient, physical exam, chart review, lab review, review of studies, review of inpatient medication list History of Present Illness Patient mildly agitated this morning. Wants to go home. States he feels "fine". He offers no complaints. LE edema improving but remains significant. Allergies Coded Allergies: No Known Allergies (Unverified , 07/14/14) pt Social History Smoking Status: Unknown if Ever Smoked Hx Tobacco Use In Past Year?: No ([id number] smoked only) Hx Alcohol Use - Type And Amou: No Hx Substance Use - Type And Am: No Problem List Medical Problems: (1) Congestive heart failure Status: Acute (2) Hypoxia Status: Acute (3) Lower extremity edema Status: Acute (4) Pulmonary edema Status: Acute Review of Systems Respiratory: No cough, No sputum, No wheezing, No shortness of breath, No dyspnea at rest, No hemoptysis Cardiac: + edema, No chest pain, No orthopnea, No PND, No palpitations Physical Exam Vital Signs Last Vital Signs Documentation Date Time Temp Pulse Resp B/P (MAP) Pulse Ox O2 Delivery O2 Flow Rate FiO2 05/29/17 07:30 36.6 67 16 104/53 (70) 96 Room Air Physical Exam Constitutional: Level of Distress: NAD, chronically ill Psychiatric: Mental Status: active & alert Orientation: to place, to person, not oriented to time Memory: remote memory normal, recent memory abnormal Head: normocephalic, atraumatic Eyes: Pupils: pertinent finding Lungs: Auscultation: no wheezing, no rhonchi, deminished air movement, decreased breath sounds Cardiovascular: Heart Auscultation: RRR, no rubs, II/ J LUIS, gallop Peripheral Pulses: Radial Pulse: normal on the left, normal on the right Dorsalis Pedis Pulse: absent on the left, absent on the right Abdomen: Bowel Sounds: normal Inspection & Palpation: no masses, distended, pertinent finding Liver: hepatomegaly Extremities: no cyanosis, no clubbing, edema Neurologic: Cranial Nerves: grossly intact Assessment and Plan Assessment and Plan Impression: 81-year-old male 1. Acute decompensation of right greater than left biventricular heart failure with anasarca type presentation, and suggestion of congestive hepatopathy with resultant coagulopathy. Clinically improving, but considerable LE edema still present. 2. Echocardiogram performed this admission revealed severe left ventricular systolic dysfunction LVEF 15-20% with findings of right ventricular systolic dysfunction and elevated right ventricular systolic pressure, tricuspid regurgitation 3. Hypokalemia due to diuresis. 4. pacemaker/ICD Plan: INR elevated today. Hold Coumadin. Continue furosemide, IV 40 mg BID. Given borderline hypotension and renal dysfunction, continue current dose and gentle diuresis. Patient likely would not tolerate higher dose diuretics. Supplement potassium. Improved. Continue beta amrit given history of ventricular arrhythmias. Previously on amiodarone but discontinued as outpatient due to prolonged QT and elevated LFTs. Device interrogation demonstrates appropriate function/battery longevity and no arrhythmias. Case discussed with Dr. Poole. Will follow. Laboratory Results Last 24 Hours Test 05/29/17 08:00 05/29/17 08:05 Prothrombin Time 42.1 SECONDS Prothromb Time International Ratio 4.1 Sodium Level 136 mmol/L Potassium Level 3.9 mmol/L Chloride Level 96 mmol/L Carbon Dioxide Level 33 mmol/L Anion Gap 6.0 mmol/L Blood Urea Nitrogen 41 mg/dl Creatinine 2.10 mg/dl Est Creatinine Clear Calc Drug Dose 26.7 ml/min Estimated GFR () 32.7 Estimated GFR (Non- 28.3 BUN/Creatinine Ratio 19.4 Random Glucose 98 mg/dl Calcium Level 8.9 mg/dl
[2017-05-29 12:13] VITALS: BP 94/58; PULSE 85; TEMP 36.6; O2SAT 96
--- NOTE | 2017-05-29 18:57 | Progress Note ---
Internal Med Progress Note Date of Service: May 29, 2017. Provider Documentation: SUBJECTIVE: resting comfortably says he wants to go home says he is ambulating fine 'denies sob afebrile no nausea OBJECTIVE: Vital Signs-as noted below Exam: General-alert and Oriented. Not in distress. ENT-normal hearing Neck-no neck masses Lungs-cta b/l no wheezing or crackles Heart-s1 and s2 heard regular no murmurs Abdomen-soft bowel sounds present non tender no distension Extremities-lower extremity edema present no erythema Neuro-alert and awake moves extremities Lab data as noted below. ASSESSMENT & PLAN: As per admission history and physical: 81 yo M with complex cardiac hx of severe ischemic cardiomyopathy with systolic and diastolic dysfunction , 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 Patient sent form cardiology office for volume overload , increased lower ext edema, weight gain and dyspnea on exertion Acute on chronic systolic CHF Ef 15-20% On IV Lasix bid i/o's daily weights says he is doing fine appreciate cardiology inputs. to continue current diuretics NMA on CKD Stage 3 As per nephrology consult cr 2.1 today nephrology on board and appreciate inputs f/u labs in am. Supratherapeutic received vitamin k restarted coumadin but heldf again today as inr 4.0 today f/u inr in am. DVT ppx: Coumadin Disposition Monitor in tele pt/ot social service for d/c planning possible d/c in 1-2days Vital Signs: Date Time Temp Pulse Resp B/P (MAP) Pulse Ox O2 Delivery O2 Flow Rate FiO2 05/29/17 16:00 Room Air 05/29/17 12:13 36.6 85 16 94/58 (70) 96 Room Air 05/29/17 12:00 Room Air 05/29/17 08:00 Room Air 05/29/17 07:30 36.6 67 16 104/53 (70) 96 Room Air 05/29/17 04:00 36.4 67 18 105/65 (78) 95 Room Air 05/29/17 04:00 Room Air 05/28/17 23:55 36.3 66 18 100/61 (74) 94 Room Air 05/28/17 23:21 Room Air 05/28/17 20:00 Room Air 05/28/17 19:44 36.3 69 20 100/61 (74) 96 Room Air Lab Results: Results Past 24 Hours Test 05/29/17 08:00 05/29/17 08:05 Range/Units Prothrombin Time 42.1 9.0-12.0 SECONDS Prothromb Time International Ratio 4.1 0.9-1.1 Sodium Level 136 136-145 mmol/L Potassium Level 3.9 3.5-5.1 mmol/L Chloride Level 96 98-107 mmol/L Carbon Dioxide Level 33 21-32 mmol/L Anion Gap 6.0 3-11 mmol/L Blood Urea Nitrogen 41 7-18 mg/dl Creatinine 2.10 0.60-1.40 mg/dl Est Creatinine Clear Calc Drug Dose 26.7 ml/min Estimated GFR () 32.7 Estimated GFR (Non- 28.3 BUN/Creatinine Ratio 19.4 10-20 Random Glucose 98 70-99 mg/dl Calcium Level 8.9 8.5-10.1 mg/dl
[2017-05-29 19:18] VITALS: BP 90/54; PULSE 93; TEMP 36.6; O2SAT 95
[2017-05-29 23:25] VITALS: BP_SYST 104; PULSE 71; TEMP 36.5; O2SAT 97
[2017-05-30] VITALS (8 sets, daily range): BP systolic 103–118; BP diastolic 65–72; PULSE 64–72; TEMP 36.1–36.8; O2SAT 95–97
[2017-05-30] MEDS: FUROSEMIDE INJ 40 MG in SYRINGE 0 ML IV SCH ×2 (05:31→17:25)
[2017-05-30 06:34] LABS: INR 4.6 (0.9-1.1)
[2017-05-30] MEDS: METOPROLOL SUCC 50MG EXT REL TAB PO SCH (07:42)
[2017-05-30] MEDS: PANTOprazole SOD 40 MG TAB PO SCH (07:42)
[2017-05-30] MEDS: MAGNESIUM OXIDE 400 MG TAB PO SCH (07:42)
[2017-05-30] MEDS: POTASSIUM CHLORIDE 20 MEQ TABCR PO SCH (07:42)
[2017-05-30] MEDS: ASPIRIN 81 MG ECTAB PO SCH (07:43)
[2017-05-30 08:21] LABS: CALCIUM 8.6 mg/dl (8.5-10.1); CREATININE 2.02 mg/dl (0.60-1.40); POTASSIUM 3.9 mmol/L (3.5-5.1)
--- NOTE | 2017-05-30 11:42 | Cardiology Follow-Up ---
Subjective General Date of Service: May 30, 2017. Chief Complaint: follow up LE edema, abdominal bloating Pt evaluation today including: conversation w/ patient, physical exam, chart review, lab review, review of studies, review of inpatient medication list History of Present Illness Patient feeling "fine". Wants to go home. Denies chest pain or SOB. Edema continues to improve. No orthopnea, PND. No dizziness. Allergies Coded Allergies: No Known Allergies (Unverified , 07/14/14) pt Social History Smoking Status: Unknown if Ever Smoked Hx Tobacco Use In Past Year?: No ([id number] smoked only) Hx Alcohol Use - Type And Amou: No Hx Substance Use - Type And Am: No Problem List Medical Problems: (1) Congestive heart failure Status: Acute (2) Hypoxia Status: Acute (3) Lower extremity edema Status: Acute (4) Pulmonary edema Status: Acute Review of Systems Respiratory: No cough, No sputum, No wheezing, No shortness of breath, No dyspnea at rest, No hemoptysis Cardiac: + edema, No chest pain, No orthopnea, No PND, No palpitations Physical Exam Vital Signs Last Vital Signs Documentation Date Time Temp Pulse Resp B/P (MAP) Pulse Ox O2 Delivery O2 Flow Rate FiO2 05/30/17 08:00 Room Air 05/30/17 07:40 36.7 69 16 113/70 (84) 96 Physical Exam Constitutional: Level of Distress: NAD, chronically ill Psychiatric: Mental Status: active & alert Orientation: to place, to person, not oriented to time Memory: remote memory normal, recent memory abnormal Head: normocephalic, atraumatic Eyes: Pupils: PERRLA Lungs: Auscultation: no wheezing, no rhonchi, deminished air movement, decreased breath sounds Cardiovascular: Heart Auscultation: RRR, no rubs, II/ J LUIS, gallop Peripheral Pulses: Radial Pulse: normal on the left, normal on the right Dorsalis Pedis Pulse: absent on the left, absent on the right Abdomen: Bowel Sounds: normal Inspection & Palpation: no masses, distended, pertinent finding Liver: hepatomegaly Extremities: no cyanosis, no clubbing, edema (2+ edema to knees) Neurologic: Cranial Nerves: grossly intact Assessment and Plan Assessment and Plan Impression: 81-year-old male 1. Acute decompensation of right greater than left biventricular heart failure with anasarca type presentation, and suggestion of congestive hepatopathy with resultant coagulopathy. Clinically improving slowly. 2. Echocardiogram performed this admission revealed severe left ventricular systolic dysfunction LVEF 15-20% with findings of right ventricular systolic dysfunction and elevated right ventricular systolic pressure, tricuspid regurgitation 3. Hypokalemia due to diuresis. 4. pacemaker/ICD' 5. Coagulopathy 6. Paroxysmal afib. No recent episodes per device interrogation. Plan: INR elevated again today despite holding Coumadin. He has had issues with recent coagulopathy with INR readings > 8 as an outpatient. Given no recent afib on monitor, persistent elevated INR readings and difficult to control, with non compliance, I recommend we discontinue anticoagulation at this time as risk > benefit. Continue IV diuresis today. Consider transitioning oral furosemide in the next 1-2 days. Was on 40-60 mg daily. Likely will need higher dose, such as 40 mg BID. No spironolactone due to elevated creatinine. Supplement potassium. Continue beta amrit given history of ventricular arrhythmias. Previously on amiodarone but discontinued as outpatient due to prolonged QT and elevated LFTs. Device interrogation demonstrates appropriate function/battery longevity and no arrhythmias. Case discussed with Dr. Poole. Will follow. Cardiology attending: Pt seen and examined, agree with findings and assessment as per Ira Perez. INR remains elevated, at this point given ongoing issues with passive liver congestion would deem the patient no longer a coumadin candidate. Luckily, recent device interrogation revealed no significant arrhythmias. Will transition to po diuretics. Would consider hospice eval but patient has adamantly refused all home services previously including attempts this admission by case management. Laboratory Results Last 24 Hours Test 05/30/17 05:40 05/30/17 05:45 Prothrombin Time 46.6 SECONDS Prothromb Time International Ratio 4.6 Sodium Level 135 mmol/L Potassium Level 3.9 mmol/L Chloride Level 97 mmol/L Carbon Dioxide Level 31 mmol/L Anion Gap 7.0 mmol/L Blood Urea Nitrogen 44 mg/dl Creatinine 2.02 mg/dl Est Creatinine Clear Calc Drug Dose 27.7 ml/min Estimated GFR () 34.3 Estimated GFR (Non- 29.6 BUN/Creatinine Ratio 21.6 Random Glucose 109 mg/dl Calcium Level 8.6 mg/dl Magnesium Level 2.1 mg/dl
--- NOTE | 2017-05-30 17:53 | Progress Note ---
Internal Med Progress Note Date of Service: May 30, 2017. Provider Documentation: SUBJECTIVE: resting comfortably says he is doming fine everything is alright and wants to go home afebrile 'denies chest pain or sob OBJECTIVE: Vital Signs-as noted below Exam: General-alert and Oriented. Not in distress. ENT-normal hearing Neck-no neck masses Lungs-cta b/l no wheezing or crackles Heart-s1 and s2 heard regular no murmurs Abdomen-soft bowel sounds present non tender no distension Extremities-lower extremity edema present no erythema Neuro-alert and awake moves extremities Lab data as noted below. ASSESSMENT & PLAN: As per admission history and physical: 81 yo M with complex cardiac hx of severe ischemic cardiomyopathy with systolic and diastolic dysfunction , 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 Patient sent form cardiology office for volume overload , increased lower ext edema, weight gain and dyspnea on exertion Acute on chronic systolic CHF Ef 15-20% On IV Lasix bid i/o's daily weights appreciate cardiology inputs. to continue current diuretics plan to d/c on po lasix 40mg bid NAM on CKD Stage 3 As per nephrology consult cr 2.1 today nephrology on board and appreciate inputs stable f/u labs in am. Supratherapeutic received vitamin k restarted coumadin but heldf again today as inr 4.6today f/u inr in am. DVT ppx: Coumadin Disposition Monitor in tele pt/ot social service for d/c planning possible d/c in 1-2days Vital Signs: Date Time Temp Pulse Resp B/P (MAP) Pulse Ox O2 Delivery O2 Flow Rate FiO2 05/30/17 17:23 66 105/65 (78) 05/30/17 16:00 97 Room Air 05/30/17 15:42 36.4 64 18 118/72 (87) 97 Room Air 05/30/17 11:54 Room Air 05/30/17 11:39 36.6 64 16 112/71 (85) 96 Room Air 05/30/17 08:00 Room Air 05/30/17 07:40 36.7 69 16 113/70 (84) 96 Room Air 05/30/17 04:00 36.8 66 20 103/67 (79) 96 Room Air 05/30/17 04:00 Room Air 05/30/17 00:00 Room Air 05/29/17 23:25 36.5 71 16 104/ (34) 97 Room Air 05/29/17 20:00 Room Air 05/29/17 19:18 36.6 93 20 90/54 (66) 95 Room Air Lab Results: Results Past 24 Hours Test 05/30/17 05:40 05/30/17 05:45 Range/Units Prothrombin Time 46.6 9.0-12.0 SECONDS Prothromb Time International Ratio 4.6 0.9-1.1 Sodium Level 135 136-145 mmol/L Potassium Level 3.9 3.5-5.1 mmol/L Chloride Level 97 98-107 mmol/L Carbon Dioxide Level 31 21-32 mmol/L Anion Gap 7.0 3-11 mmol/L Blood Urea Nitrogen 44 7-18 mg/dl Creatinine 2.02 0.60-1.40 mg/dl Est Creatinine Clear Calc Drug Dose 27.7 ml/min Estimated GFR () 34.3 Estimated GFR (Non- 29.6 BUN/Creatinine Ratio 21.6 10-20 Random Glucose 109 70-99 mg/dl Calcium Level 8.6 8.5-10.1 mg/dl Magnesium Level 2.1 1.8-2.4 mg/dl
[2017-05-31 04:55] VITALS: BP 121/74; PULSE 69; TEMP 36.5; O2SAT 94
[2017-05-31] MEDS: FUROSEMIDE INJ 40 MG in SYRINGE 0 ML IV SCH (05:52)
[2017-05-31 07:24] VITALS: BP 115/75; PULSE 69; TEMP 36.5; O2SAT 94
[2017-05-31] MEDS: PANTOprazole SOD 40 MG TAB PO SCH (08:10)
[2017-05-31] MEDS: ASPIRIN 81 MG ECTAB PO SCH (08:10)
[2017-05-31] MEDS: MAGNESIUM OXIDE 400 MG TAB PO SCH (08:10)
[2017-05-31] MEDS: POTASSIUM CHLORIDE 20 MEQ TABCR PO SCH (08:10)
[2017-05-31] MEDS: METOPROLOL SUCC 50MG EXT REL TAB PO SCH (08:11)
[2017-05-31 08:17] LABS: INR 3.5 (0.9-1.1)
[2017-05-31 08:39] LABS: ALBUMIN 2.8 gm/dl (3.4-5.0); CREATININE 2.11 mg/dl (0.60-1.40); POTASSIUM 3.5 mmol/L (3.5-5.1)
[2017-05-31 08:45] LABS: TOTAL PROTEIN 7.8 gm/dl (6.4-8.2)
[2017-05-31 11:42] VITALS: BP 100/67; PULSE 92; O2SAT 96
[2017-05-31] MEDS ORDERED: FURO40TA3 PO (13:40)
[2017-05-31] MEDS ORDERED: TPRSR50 PO (13:40)
[2017-05-31] MEDS ORDERED: MCRK20 PO (13:40)
--- NOTE | 2017-05-31 13:47 | Discharge Instructions ---
Discharge Instructions Date of Service May 31, 2017. Admission Reason for Admission: Chf, Nyha Class Iv Discharge Discharge Diagnosis / Problem: acute systolic chf Discharge Goals Goal(s): Decrease discomfort, Improve function Activity Recommendations Activity Limitations: resume your previous activity . Instructions / Follow-Up Instructions / Follow-Up FOLLOWUP WITH FAMILY DOCTOR ON May AT 10:45AM. FOLLOWUP WITH CARDIOLOGY IN 2-3 WEEKS. LAB: BMP IN 5-7 DAYS AND FOLLOW RESULTS WITH FAMILY DOCTOR. STOPPED COUMADIN, SPIRONOLACTONE AND LISINOPRIL. COUMADIN STOPPED BECAUSE DIFFICULT TO MAINTAIN THE COUMADIN LEVELS AND FALL RISK. CHANGED LASIX TO 40MG TWICE DAILY CHANGED METOPROLOL SUCCINATE TO 50MG PO DAILY ADDED POTASSIUM SUPPLEMENT 20MEQ PO DAILY. Call your Primary Care doctor if any of the following symptoms or problems start or get worse: * Shortness of breath or difficulty breathing * Wake up at night short of breath * Chest pain * Cough * Swelling of your hands, feet, or legs * More fatigued or tired with your normal activity * Palpitations - sudden fast heart beats WEIGHT * Weigh yourself every morning after using the bathroom. * Use the same scale. * Wear the same amount of clothing. * Write your weight down on a chart. * Call your Primary Care doctor if you gain more than 2-3 pounds in 1-2 days. MEDICATIONS * Use this discharge instruction sheet for medication instructions. * Take your medications at the time your doctor ordered. * Do not skip a dose of your medicines. * If you miss a dose of medicine, take it as soon as possible, but DO NOT DOUBLE A DOSE. * Read your medicine information when you get home. * Know all of the side effects of your medicine. If in doubt, ask your pharmacist * Call your Primary Care doctor's office if you have any side effects. * Be sure all of your doctors know what medicine and herbs you take (including cold, flu, and herbal medicine). Take the following with you to your follow-up doctor appointments: * Weight Chart * Medication List * List of questions Do not drink excessive alcohol, beer or wine. Current Hospital Diet Patient's current hospital diet: Low Sodium Diet (2gm Na), AHA Diet (Heart Healthy), Renal Diet Discharge Diet Recommended Diet: AHA Diet (Heart Healthy), Low Sodium Diet (2gm Na), Renal Diet Pending Studies Studies pending at discharge: no Laboratory Results Lipid Panel Test 05/24/17 05:46 Range/Units Triglycerides Level 69 0-150 mg/dl Cholesterol Level 102 0-200 mg/dl HDL Cholesterol 17 mg/dl Cholesterol/HDL Ratio 6.0 LDL Cholesterol, Calculated 71 mg/dl Medical Emergencies . Who to Call and When: Call 911 or go to the Emergency Room if: * If at any time you feel your situation is an emergency * You have tightness or pain in your chest that does not go away with rest or Nitroglycerin * You are very short of breath even with rest . Non-Emergent Contact Non-Emergency issues call your: Primary Care Provider . . "Provider Documentation" section prepared by Joe Marinelli. .
[2017-05-31 14:13] VITALS: BP 100/67; PULSE 92; TEMP 36.5; O2SAT 96
--- NOTE | 2017-05-31 18:54 | Progress Note ---
Internal Med Progress Note Date of Service: May 31, 2017. Provider Documentation: SUBJECTIVE: resting comfortably wants to go home says he si ambulating fine moved bowels eating fine denies chest pain or sob or cough OBJECTIVE: Vital Signs-as noted below Exam: General-alert and Oriented. Not in distress. ENT-normal hearing Neck-no neck masses Lungs-cta b/l no wheezing or crackles Heart-s1 and s2 heard regular no murmurs Abdomen-soft bowel sounds present non tender no distension Extremities-lower extremity edema present no erythema Neuro-alert and awake moves extremities Lab data as noted below. ASSESSMENT & PLAN: As per admission history and physical: 81 yo M with complex cardiac hx of severe ischemic cardiomyopathy with systolic and diastolic dysfunction , 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 Patient sent form cardiology office for volume overload , increased lower ext edema, weight gain and dyspnea on exertion Acute on chronic systolic CHF Ef 15-20% On IV Lasix bid i/o's daily weights appreciate cardiology inputs. to continue current diuretics to d/c on po lasix 40mg bid and kcl supplements stopped Aldactone and lisinopril at discharge changed Toprol xl to 50mg daily f/u labs with pcp NAM on CKD Stage 3 As per nephrology consult cr 2.1 today nephrology on board and appreciate inputs stable f/u labs with pcp. Supratherapeutic received vitamin k restarted coumadin but heldf again today as inr 4.6today inr 3.5 todasy cardiology stopped Coumadin as patient having difficulty maintaining therapeutic range- getting elevated. and with his comorbidities. PAF on Toprol xl Coumadin stopped as above discharged home with home health Vital Signs: Date Time Temp Pulse Resp B/P (MAP) Pulse Ox O2 Delivery O2 Flow Rate FiO2 05/31/17 14:13 36.5 92 18 96 Room Air 05/31/17 12:00 Room Air 05/31/17 11:42 92 18 100/67 (78) 96 05/31/17 08:00 Room Air 05/31/17 07:24 36.5 69 18 115/75 (88) 94 Room Air 05/31/17 04:55 36.5 69 17 121/74 (90) 94 Room Air 05/31/17 04:00 Room Air 05/30/17 23:59 Room Air 05/30/17 23:12 36.3 72 18 113/69 (84) 95 Room Air 05/30/17 20:07 36.1 68 18 110/69 (83) 97 Room Air 05/30/17 20:00 Room Air Lab Results: Results Past 24 Hours Test 05/31/17 07:46 Range/Units Prothrombin Time 36.2 9.0-12.0 SECONDS Prothromb Time International Ratio 3.5 0.9-1.1 Sodium Level 136 136-145 mmol/L Potassium Level 3.5 3.5-5.1 mmol/L Chloride Level 96 98-107 mmol/L Carbon Dioxide Level 32 21-32 mmol/L Anion Gap 8.0 3-11 mmol/L Blood Urea Nitrogen 46 7-18 mg/dl Creatinine 2.11 0.60-1.40 mg/dl Est Creatinine Clear Calc Drug Dose 26.5 ml/min Estimated GFR () 32.6 Estimated GFR (Non- 28.1 BUN/Creatinine Ratio 21.6 10-20 Random Glucose 113 70-99 mg/dl Calcium Level 9.0 8.5-10.1 mg/dl Total Bilirubin 2.7 0.2-1 mg/dl Aspartate Amino Transf (AST/SGOT) 22 15-37 U/L Alanine Aminotransferase (ALT/SGPT) 19 12-78 U/L Alkaline Phosphatase 166 45-117 U/L Total Protein 7.8 6.4-8.2 gm/dl Albumin 2.8 3.4-5.0 gm/dl Globulin 5.0 2.5-4.0 gm/dl Albumin/Globulin Ratio 0.6 0.9-2
--- NOTE | 2017-05-31 19:26 | Discharge Summary ---
Discharge Summary Date of Service May 31, 2017. Discharge Summary Admission Date: May 23, 2017 at 14:17 Discharge Date: May 31, 2017 Discharge Disposition: Home with services Principal Diagnosis: ACUTE ON CHRONIC SYSTOLIC CHF Secondary Diagnoses/Problems: (1) Benign hypertension Status: Chronic (2) Chest pain Status: Resolved (3) Chronic congestive heart failure Status: Chronic (4) History of implantable cardiac defibrillator (ICD) Status: Chronic (5) Hx of cardiac pacemaker Status: Chronic (6) Hyperlipidemia Status: Chronic (7) mitral valve repair Status: Chronic (8) Paroxysmal A-fib Status: Chronic (9) Paroxysmal ventricular tachycardia Status: Chronic (10) RBBB Status: Chronic Procedures: CXR: 1. Cardiomegaly and AICD. There is mild pulmonary vascular congestion. 2. No airspace consolidation or large pleural effusion is identified. 3. There is a questionable nodular density projecting over the right midlung which may be artifactual. Follow-up with a dedicated PA and lateral examination is recommended. TWO VIEW CHEST XRAY: 1. Cardiomegaly and AICD. Pulmonary vascular congestion has almost completely resolved. 2. Small pleural effusions are seen on the lateral view. 3. Bibasilar airspace opacities likely represent atelectasis. Clinical correlation will be required. 4. The nodular density in the right lung questioned on yesterday's examination is no longer identified and was likely artifactual. BILIARY US; 1. No hepatic or pancreatic masses identified 2. Small amount of sludge in the gallbladder. No shadowing calculi identified 3. No evidence of ductal dilatation 4. Low volume ascites ECHO: * The left ventricle is normal in size. * There is normal left ventricular wall thickness. * There is severe global hypokinesis of the left ventricle. * Septal motion is consistent with conduction abnormality. * Ejection Fraction = 15-20%. * The left atrium is mildly dilated. * The right atrium is mild to moderately dilated. * The right ventricular systolic function is mildly reduced. * An annuloplasty ring is noted in the mitral position. * The mitral valve leaflets are thickened and restricted in mobility. * At least mild mitral stenosis is suspected * There is moderate to severe tricuspid regurgitation. * Right ventricular systolic pressure is elevated at 40-50mmHg. Consultations: CARDIOLOGY NEPHROLOGY Medication Reconciliation New Medications: Furosemide (Lasix) 40 Mg Tab 40 MG PO BID, #60 TAB 2 Refills Metoprolol Succinate (Metoprolol Succinate ER) 50 Mg Tabcr 50 MG PO DAILY for 30 Days, #30 2 Refills Potassium Chloride (Klor-Con M20) 20 Meq Tabcr 20 MEQ PO QAM, #30 2 Refills Continued Medications: Amoxicillin (Amoxil) 500 Mg Cap 2000 MG PO DIRECTED, CAP take prior to dental procedures Aspirin Enteric Coated (Ecotrin Or Generic) 81 Mg Tab 81 MG PO DAILY, TAB Magnesium Oxide (Mg Supplement (Magnesium) 400 Mg Cap 1 CAP PO DAILY Omeprazole (Prilosec) 20 Mg Capcr 20 MG PO DAILY, CAP Discontinued Medications: Furosemide (Furosemide) 40 Mg Tab 1.5 TAB PO BID for 30 Days, #90 TAB Lisinopril (Zestril) 20 Mg Tab 0.5 TAB PO DAILY, TAB Metoprolol Succinate (Metoprolol Succinate ER) 50 Mg Tabcr 2 TAB PO DAILY Spironolactone (Spironolactone) 25 Mg Tab 25 MG PO DAILY Warfarin Sod (Jantoven) 5 Mg Tab 2.5 MG PO DAILY, TAB Admission Information HPI (per Admitting provider): Pt is 81 y/o M with PMH mitral regurgitation s/p MV repair in 2012, PFO s/p closure in 2013, CAD, cardiomyopathy with EF: 20-25%, paroxysmal a-fib, paroyxsmal VT, RBBB, 1st degree AV block, s/p pacer/defibrillator, HTN, HLD presented to ER from cardiology office for increased edema x couple of weeks. Pt was seen on 05/16/17 by cardiology at at that time he had stopped taking his lasix as he felt he was urinating too much on lasix, and was noted to have increased edema. He was then changed to lasix 60mg BID, spironolactone 25mg daily was added and his lisinopril was decreased from 20mg tab to half tab (10mg ) daily. He was to continue his metoprolol 100mg (two 50mg tabs) daily, magnesium and ASA. Pt is supposed to be holding his Coumadin secondary to supratherapeutic INR. It has been on hold since 05/13/17. Yesterday INR>8 and he was to take vitamin K 2.5mg which pt believes he took. Denies epistaxis or melena or hematochezia. Does have bruising and scabs noted to left arm and pt reports those are from flea bites that his dog had fleas and pt has been scratching and picking at areas. Pt feels areas or improving. Pt reports increased edema to LE past couple of weeks. Pt denies any other complaints today. According to cardiology out pt note reports pt with increased weakness and confusion. Pt uses walker to ambulate. Denies fever/chills, diaphoresis, N/V/D/C, MALONE, dizziness, syncope, vision changes, neck pain, CP, SOB , orthopnea, palpitations, cough, sore throat, choking, otalgia, rhinorrhea, abdominal pain, paresthesias, dysuria, hematuria. Of note - Unsure if pt has been taking his meds correctly and unsure if he has been holding his Coumadin as directed. Pt reports that he does his own medications at home. When asked if he has been taking or holding the Coumadin as directed, he states he thinks he has been taking it. Admits that he is confused about his meds with recent med changes. Physical Exam (per Admitting): General Appearance: WD/WN, no apparent distress Head: normocephalic, atraumatic Eyes: normal inspection, PERRL, EOMI ENT: pharynx normal, + pertinent finding (mucous membranes moist. Hard of hearing) Neck: supple, trachea midline Respiratory/Chest: no respiratory distress, no accessory muscle use, + decreased breath sounds (bases bilaterally, no rales or rhonchi or wheezing noted) Cardiovascular: regular rate, rhythm, + systolic murmur Abdomen/GI: normal bowel sounds, non tender, + pertinent finding (+edema) Back: no CVA tenderness Extremities/Musculoskelatal: no calf tenderness, + pertinent finding (+3 pitting edema bilateral pre-tibial, 2+pitting edema thighs bilaterally. ecchymosis noted left foot/toes. sensation to light touch intact) Neurologic/Psych: alert, + pertinent finding (oriented to person and place) Skin: warm/dry, + pertinent finding (+multiple ecchymosis and escar to L arm without surrounding erythema ) Hospital Course As per admission history and physical: 81 yo M with complex cardiac hx of severe ischemic cardiomyopathy with systolic and diastolic dysfunction , 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 Patient sent form cardiology office for volume overload , increased lower ext edema, weight gain and dyspnea on exertion Acute on chronic systolic CHF Ef 15-20% On IV Lasix bid i/o's daily weights appreciate cardiology inputs. to continue current diuretics to d/c on po lasix 40mg bid and kcl supplements stopped Aldactone and lisinopril at discharge changed Toprol xl to 50mg daily f/u labs with pcp NAM on CKD Stage 3 As per nephrology consult cr 2.1 today nephrology on board and appreciate inputs stable f/u labs with pcp. Supratherapeutic received vitamin k restarted coumadin but heldf again today as inr 4.6today inr 3.5 todasy cardiology stopped Coumadin as patient having difficulty maintaining therapeutic range- getting elevated. and with his comorbidities. PAF on Toprol xl Coumadin stopped as above discharged home with home health Total time spent on discharge = 35MINUTES This includes examination of the patient, discharge planning, medication reconciliation, and communication with other providers. Discharge Instructions Discharge Instructions Date of Service May 31, 2017. Admission Reason for Admission: Chf, Nyha Class Iv Discharge Discharge Diagnosis / Problem: acute systolic chf Discharge Goals Goal(s): Decrease discomfort, Improve function Activity Recommendations Activity Limitations: resume your previous activity . Instructions / Follow-Up Instructions / Follow-Up FOLLOWUP WITH FAMILY DOCTOR ON May AT 10:45AM. FOLLOWUP WITH CARDIOLOGY IN 2-3 WEEKS. LAB: BMP IN 5-7 DAYS AND FOLLOW RESULTS WITH FAMILY DOCTOR. STOPPED COUMADIN, SPIRONOLACTONE AND LISINOPRIL. COUMADIN STOPPED BECAUSE DIFFICULT TO MAINTAIN THE COUMADIN LEVELS AND FALL RISK. CHANGED LASIX TO 40MG TWICE DAILY CHANGED METOPROLOL SUCCINATE TO 50MG PO DAILY ADDED POTASSIUM SUPPLEMENT 20MEQ PO DAILY. Call your Primary Care doctor if any of the following symptoms or problems start or get worse: * Shortness of breath or difficulty breathing * Wake up at night short of breath * Chest pain * Cough * Swelling of your hands, feet, or legs * More fatigued or tired with your normal activity * Palpitations - sudden fast heart beats WEIGHT * Weigh yourself every morning after using the bathroom. * Use the same scale. * Wear the same amount of clothing. * Write your weight down on a chart. * Call your Primary Care doctor if you gain more than 2-3 pounds in 1-2 days. MEDICATIONS * Use this discharge instruction sheet for medication instructions. * Take your medications at the time your doctor ordered. * Do not skip a dose of your medicines. * If you miss a dose of medicine, take it as soon as possible, but DO NOT DOUBLE A DOSE. * Read your medicine information when you get home. * Know all of the side effects of your medicine. If in doubt, ask your pharmacist * Call your Primary Care doctor's office if you have any side effects. * Be sure all of your doctors know what medicine and herbs you take (including cold, flu, and herbal medicine). Take the following with you to your follow-up doctor appointments: * Weight Chart * Medication List * List of questions Do not drink excessive alcohol, beer or wine. Current Hospital Diet Patient's current hospital diet: Low Sodium Diet (2gm Na), AHA Diet (Heart Healthy), Renal Diet Discharge Diet Recommended Diet: AHA Diet (Heart Healthy), Low Sodium Diet (2gm Na), Renal Diet Pending Studies Studies pending at discharge: no Laboratory Results Lipid Panel Test 05/24/17 05:46 Range/Units Triglycerides Level 69 0-150 mg/dl Cholesterol Level 102 0-200 mg/dl HDL Cholesterol 17 mg/dl Cholesterol/HDL Ratio 6.0 LDL Cholesterol, Calculated 71 mg/dl Medical Emergencies . Who to Call and When: Call 911 or go to the Emergency Room if: * If at any time you feel your situation is an emergency * You have tightness or pain in your chest that does not go away with rest or Nitroglycerin * You are very short of breath even with rest . Non-Emergent Contact Non-Emergency issues call your: Primary Care Provider . .
== END 2017-05-31 14:45 | disposition home health service (06) | DRG 291 ==
LOC: EDSEX 12:27 → EDBD 12:27 → C.EDB 12:28 → C.MED 14:17 → ENRESERV 17:37
PROVIDERS: ADMIT Hospitalist; ATTEND Internal Medicine
DX: I13.0 Hypertensive heart and chronic kidney disease with heart failure and stage 1 through stage 4 chronic kidney disease, or unspecified chronic kidney disease (principal); I50.23 Acute on chronic systolic (congestive) heart failure; N17.9 Acute kidney failure, unspecified; N18.3 Chronic kidney disease, stage 3 (moderate); Z82.49 Family history of ischemic heart disease and other diseases of the circulatory system; I25.10 Atherosclerotic heart disease of native coronary artery without angina pectoris; I48.0 Paroxysmal atrial fibrillation; I45.10 Unspecified right bundle-branch block; E78.5 Hyperlipidemia, unspecified; Z79.82 Long term (current) use of aspirin; R79.1 Abnormal coagulation profile; Z95.810 Presence of automatic (implantable) cardiac defibrillator; Z95.0 Presence of cardiac pacemaker

== ENCOUNTER 2017-06-17 09:43 | Observation (INO) | payer MEDICARE, OTHER ==
[~2017-06-17] VITALS: Ht 172.7 cm; Wt 65.1 kg
[~2017-06-17 09:43] MED LIST changes: -AMLO-110 PO; -CRS/10 PO; +FURO40TA3 PO; -LISI-725 PO; -LSX40 PO; +MAGN1CAP2 PO; +MCRK20 PO; -METO100T44 PO; +TPRSR50 PO; -WARF5TAB7 PO
[2017-06-17] MEDS ORDERED: SODIUM CHLORIDE 0.9% 250ML 250 ML IV STA (10:20)
--- NOTE | 2017-06-17 10:59 | DIAGNOSTIC IMAGING REPORT ---
CHEST ONE VIEW PORTABLE CLINICAL HISTORY: 81 years-old Male presenting with EVALUATE RESPIRATORY DISTRESS.DYSPNEA. TECHNIQUE: Portable upright AP view of the chest was obtained. COMPARISON: 05/24/2017. FINDINGS: Left subclavian implanted cardiac defibrillator with leads to the right atrium and right ventricular apex. The leads uptake in unusual coarse suggestive of a left-sided SVC. Atherosclerosis of aortic arch. Cardiac silhouette moderately enlarged. Prosthetic aortic valve. Epicardial pacing wires noted. Lungs and pleural spaces clear. Resolution of pleural effusions. Osseous structures normal. Upper abdomen normal. IMPRESSION: 1. Cardiomegaly. Otherwise no convincing evidence of acute cardiopulmonary disease. 2. Resolution of pleural effusions. Electronically signed by: Dhiraj Bolton M.D. 06/17/2017 10:57 AM Dictated Date/Time: 06/17/2017 10:54 AM
[2017-06-17 11:54] LABS: BASO % 0.8 %; BASO ABS # 0.07 K/uL (0-0.2); EOS % 0.4 %; EOS ABS # 0.04 K/uL (0-0.5); HEMATOCRIT 42.5 % (42-52); IG# 0.03 K/uL (0.00-0.02); MEAN CELL VOLUME 94.4 fL (80-100); MEAN CORPUSCULAR HEMOGLOBIN 31.1 pg (25-34); MEAN CORPUSCULAR HGB CONC 32.9 g/dl (32-36); MEAN PLATELET VOLUME 10.2 fL (7.4-10.4); MONO % 11.7 %; MONO ABS # 1.05 K/uL (0.11-0.59); NEUT % 66.8 %; PLATELET COUNT 405 K/uL (130-400); RED CELL DISTRIBUTION WIDTH CV 21.7 % (11.5-14.5); RED CELL DISTRIBUTION WIDTH SD 75.5 fL (36.4-46.3); WHITE BLOOD COUNT 8.99 K/uL (4.8-10.8)
[2017-06-17 12:05] LABS: ALBUMIN 3.1 gm/dl (3.4-5.0); ALT/SGPT 14 U/L (12-78); BLOOD UREA NITROGEN 27 mg/dl (7-18); CALCIUM 9.5 mg/dl (8.5-10.1); CARBON DIOXIDE 19 mmol/L (21-32); CREATININE 1.87 mg/dl (0.60-1.40); GLUCOSE 67 mg/dl (70-99); INR 1.7 (0.9-1.1); POTASSIUM 4.8 mmol/L (3.5-5.1); PTT PATIENT 29.6 SECONDS (21.0-31.0); SODIUM 132 mmol/L (136-145)
[2017-06-17 12:07] LABS: ALKALINE PHOSPHATASE 237 U/L (45-117); AST/SGOT 23 U/L (15-37); TOTAL PROTEIN 8.3 gm/dl (6.4-8.2)
[2017-06-17 13:17] VITALS: O2SAT 92; Ht 172.7 cm; Wt 65.1 kg
[2017-06-17] MEDS ORDERED: NITROGLYCERIN 0.4 MG SL PER TAB CHARGE SL PRN (14:45)
[2017-06-17] MEDS ORDERED: IV FLUIDS COMPLETED PRN (14:45)
[2017-06-17] MEDS ORDERED: MAGNESIUM HYDROXIDE SUSP 30 ML UDC PO PRN (14:45)
[2017-06-17] MEDS ORDERED: ACETAMINOPHEN 325 MG TAB PO PRN (14:45)
--- NOTE | 2017-06-17 15:06 | History and Physical ---
History & Physical Date & Time of Service: Jun 17, 2017 at 14:37 Chief Complaint: Respiratory Primary Care Physician: Jared Godoy PA-C History of Present Illness Source: patient, family, clinic records, hospital records Pt is 81 y/o M with PMH CAD, mitral regurgitation S/P MV repair in 2002, PFO S/ P closure in 2012, cardiomyopathy with EF: 15-20%, paroxysmal A. fib, paroxysmal VT, RBBB, first-degree AV block, status post pacer/defibrillator, HTN , HLD presented to ER with complaint of shortness of breath with exertion. Patient was admitted on 05/23/17 through 05/31/17 for fluid overload, NAM, supratherapeutic INR and received IV Lasix at that time with approximately 30 pound weight loss during that admission. Patient had his Coumadin stopped, Lasix was increased to 40 mg p.o. twice daily, metoprolol decreased to 50 mg once daily. Patient states since with intermittent lower extremity edema but feels like it is improved. He denies any changes in his weight. Patient states has some sensation that needs to catch his breath this has occurred a couple of times over the last couple of weeks. Patient reports is usually one pillow to sleep and is denying any orthopnea or PND. Pt reports decreased appetite past several days. Spoke to pt's on phone. She reports pt stated this morning was more SOB with walking and he felt he needed to come to ER. also reports patient has only been drinking grape juice and a little water and not eating well. has noticed patient is forgetful and she has been managing his medicines. Patient admits to scratching scabs he has to his extremities denies any surrounding erythema or discharge. Patient is denying any chest pain. He states generally sits for most of the day, does often hold onto things while walking around the house. Denies any falls. Denies fever/ chills, diaphoresis, N/V/D/C, MALONE, dizziness, syncope, vision changes, neck pain , palpitations, cough, sore throat, choking, otalgia, rhinorrhea, abdominal pain , paresthesias, extremity weakness, urinary symptoms. Patient had echo on 05/23/17: EF: 15-20%, severe global hypokinesis, prior mitral valve repair with mild to moderate stenosis, moderate elevation right heart pressures. Past Medical/Surgical History Medical Problems: (1) Benign hypertension Status: Chronic (2) Chest pain Status: Resolved (3) Chronic congestive heart failure Status: Chronic (4) History of implantable cardiac defibrillator (ICD) Status: Chronic (5) Hx of cardiac pacemaker Status: Chronic (6) Hyperlipidemia Status: Chronic (7) mitral valve repair Status: Chronic (8) Paroxysmal A-fib Status: Chronic (9) Paroxysmal ventricular tachycardia Status: Chronic (10) RBBB Status: Chronic Surgical Problems: (1) Hx of mitral valve repair Permanent Comment: 2013 - Dr Hedrick - [facility] repair of patent foramen ovale at that time also Status: Resolved Family History FH: heart disease MOTHER Social History Smoking Status: Former Smoker Smokeless Tobacco Use: No Alcohol Use: none Drug Use: none Marital Status: Housing status: lives with significant other Immunizations History of Influenza Vaccine: No History of Tetanus Vaccine?: No History of Pneumococcal: Unknown History of Hepatitis B Vaccine: No Allergies Coded Allergies: No Known Allergies (Unverified , 06/17/17) pt Home Medications Scheduled Amoxicillin (Amoxil), 2,000 MG PO DIRECTED Aspirin Enteric Coated (Ecotrin Or Generic), 81 MG PO DAILY Furosemide (Lasix), 40 MG PO BID Magnesium Oxide (Mg Supplement (Magnesium), 1 CAP PO DAILY Metoprolol Succinate (Metoprolol Succinate ER), 50 MG PO DAILY Omeprazole (Prilosec), 20 MG PO DAILY Potassium Chloride (Klor-Con M20), 20 MEQ PO QAM Review of Systems See HPI for pertinent positives & negatives. All other systems reviewed and were otherwise negative Physical Exam Vital Signs Date Time Temp Pulse Resp B/P (MAP) Pulse Ox O2 Delivery O2 Flow Rate FiO2 06/17/17 13:25 98 16 110/77 92 Room Air 06/17/17 13:17 92 Room Air 06/17/17 13:16 98 06/17/17 12:30 97 16 112/74 93 Room Air 06/17/17 11:06 98 20 114/73 95 Room Air 06/17/17 11:04 94 Room Air 06/17/17 10:40 93 Room Air 06/17/17 09:51 36.4 104 20 116/81 100 Room Air 06/17/17 09:50 102 General Appearance: WD/WN, no apparent distress Head: normocephalic, atraumatic Eyes: normal inspection, PERRL, EOMI, sclerae normal ENT: hearing grossly normal, pharynx normal, + pertinent finding (mucous membranes moist) Neck: supple, no JVD, trachea midline Respiratory/Chest: lungs clear, normal breath sounds, no respiratory distress, no accessory muscle use Cardiovascular: regular rate, rhythm, normal peripheral pulses, + systolic murmur Abdomen/GI: normal bowel sounds, non tender, soft Extremities/Musculoskelatal: no calf tenderness, normal capillary refill, + pedal edema (2+ pretibial pitting edema) Neurologic/Psych: alert, normal mood/affect, oriented x 3 Skin: normal color, warm/dry, + pertinent finding (+scattered scabs to bilateral upper and lower extremities without surrounding erythema or edema) Diagnostics Laboratory Results Results Past 24 Hours Test 06/17/17 09:15 06/17/17 14:25 Range/Units White Blood Count 8.99 4.8-10.8 K/uL Red Blood Count 4.50 4.7-6.1 M/uL Hemoglobin 14.0 14.0-18.0 g/dL Hematocrit 42.5 42-52 % Mean Corpuscular Volume 94.4 80-100 fL Mean Corpuscular Hemoglobin 31.1 25-34 pg Mean Corpuscular Hemoglobin Concent 32.9 32-36 g/dl Platelet Count 405 130-400 K/uL Mean Platelet Volume 10.2 7.4-10.4 fL Neutrophils (%) (Auto) 66.8 % Lymphocytes (%) (Auto) 20.0 % Monocytes (%) (Auto) 11.7 % Eosinophils (%) (Auto) 0.4 % Basophils (%) (Auto) 0.8 % Neutrophils # (Auto) 6.00 1.4-6.5 K/uL Lymphocytes # (Auto) 1.80 1.2-3.4 K/uL Monocytes # (Auto) 1.05 0.11-0.59 K/uL Eosinophils # (Auto) 0.04 0-0.5 K/uL Basophils # (Auto) 0.07 0-0.2 K/uL RDW Standard Deviation 75.5 36.4-46.3 fL RDW Coefficient of Variation 21.7 11.5-14.5 % Immature Granulocyte % (Auto) 0.3 % Immature Granulocyte # (Auto) 0.03 0.00-0.02 K/uL Toxic Vacuolation 1+ Poikilocytosis PRESENT Anisocytosis PRESENT Prothrombin Time 18.1 9.0-12.0 SECONDS Prothromb Time International Ratio 1.7 0.9-1.1 Activated Partial Thromboplast Time 29.6 21.0-31.0 SECONDS Partial Thromboplastin Ratio 1.1 Sodium Level 132 136-145 mmol/L Potassium Level 4.8 3.5-5.1 mmol/L Chloride Level 98 98-107 mmol/L Carbon Dioxide Level 19 21-32 mmol/L Anion Gap 15.0 3-11 mmol/L Blood Urea Nitrogen 27 7-18 mg/dl Creatinine 1.87 0.60-1.40 mg/dl Est Creatinine Clear Calc Drug Dose 28.9 ml/min Estimated GFR () 37.7 Estimated GFR (Non- 32.5 BUN/Creatinine Ratio 14.6 10-20 Random Glucose 67 70-99 mg/dl Calcium Level 9.5 8.5-10.1 mg/dl Total Bilirubin 5.4 0.2-1 mg/dl Aspartate Amino Transf (AST/SGOT) 23 15-37 U/L Alanine Aminotransferase (ALT/SGPT) 14 12-78 U/L Alkaline Phosphatase 237 45-117 U/L Troponin I < 0.015 0-0.045 ng/ml Pro-B-Type Natriuretic Peptide > 22644 0-1800 pg/ml Total Protein 8.3 6.4-8.2 gm/dl Albumin 3.1 3.4-5.0 gm/dl Globulin 5.2 2.5-4.0 gm/dl Albumin/Globulin Ratio 0.6 0.9-2 Diagnostic Radiology CXR: IMPRESSION: 1. Cardiomegaly. Otherwise no convincing evidence of acute cardiopulmonary disease. 2. Resolution of pleural effusions. EKG EKG NSR, 1st degree AV block, RBBB, no significant changes noted from previous Read by cardiology: Sinus rhythm with 1st degree A-V block Right bundle branch block Inferior infarct , age undetermined Abnormal ECG When compared with ECG of 25-MAY-2017 08:52, No significant change Confirmed by DAVID RESENDEZ ([id number]) on 06/17/2017 12:15:31 PM Impression Assessment and Plan ACUTE ON CHRONIC SYSTOLIC CHF CARDIOMYOPATHY Patient with complaint of dyspnea on exertion intermittently. Denies CP, orthopnea or PND. 05/23/17 echo: EF: 15-20%. In ER 92-100% on room air, respirations 20, pulse 98-104, BP: 116/81-129/80, afebrile. Initial troponin negative. No leukocytosis. BNP >33195. CXR: Cardiomegaly, no acute changes. Resolution of pleural effusions. -Lasix 40 mg IV twice daily -fluid restriction -Monitor I's & O's and daily weights -Cardiology consult appreciate input -monitor electrolytes HYPONATREMIA Na: 132 -fluid restriction -monitor electrolytes CKD STAGE III Cr: 1.8, baseline 1.6 -monitor renal functions -avoid nephrotoxic agents when possible -nephrology consult PAROXYSMAL A-FIB, V. TACH S/P PACER/DEFIBRILLATOR, Hx MITRAL REGURGITATION S/P MITRAL VALVE REPAIR Patient off Coumadin. INR 1.7 -Continue metoprolol, ASA PROLONGED QT -avoid QTc prolonging agents HTN -continue metoprolol with holding parameters DVT Prophylaxis -SCD Disposition admit tele obs Full Code as per discussion with pt Follows with Dr Reyna for routine care Pt was seen with Dr Duong. See addendum Attending Addendum: Pt is 81 y/o M with PMH CAD, mitral regurgitation S/P MV repair in 2002, PFO S/ P closure in 2012, cardiomyopathy with EF: 15-20%, paroxysmal A. fib, paroxysmal VT, RBBB, first-degree AV block, status post pacer/defibrillator, HTN , HLD presented to ER with complaint of shortness of breath with exertion. Admitted with 2 brief episodes of SOB ,no chest pain Denies any chest pain and denies any SOB in ER No more leg swelling O/E No apparent distress Chest -decreased breath sound ,minimal bibasilar crackles Heart-Irregular ,2/6 ESM precordial area Abdomen-benign,on masses,bowel sound present Extremities-trace edema bilaterally Labs and Imaging studies were reviewed Agree with ASSESSMENT AND PLAN Will need cardiology evaluation if not any better and or deteriorates. Dr Cari Duong Advanced Directives Existing Living Will: Yes Existing Power of [employer]orator Store: Yes Resuscitation Status Full code VTE Prophylaxis Will order VTE Prophylaxis: Yes Additional Copies To Carmela Reyna D.O.
[2017-06-17 16:28] VITALS: O2SAT 99
[2017-06-17 17:00] VITALS: BP 115/79; PULSE 95; TEMP 36.3; O2SAT 98
--- NOTE | 2017-06-17 17:20 | EMERGENCY ROOM VISIT NOTE ---
History Report prepared by Pam: Marisol Price Under the Supervision of: Dr. Nick Rose D.O. First contact with patient: 10:12 Chief Complaint: RESPIRATORY PROBLEMS Stated Complaint: RESPIRATORY Nursing Triage Summary: pt here via [facility] from home with exertional dypsnea. pt was hospitalized at the end of may for resp issues. pt states feels fine now, just worse with ambulation. History of Present Illness The patient is an 81 year old male who presents to the Emergency Room with complaints of intermittent SOB starting [employer]. The patient presents to the ED by EMS. He has been feeling SOB with exertion. His SOB resolves with rest. He also complains of intermittent chest discomfort. He denies any abdominal pain, nausea , vomiting, diarrhea, cough, rhinorrhea, burning with urination, or leg swelling. He does not wear oxygen at home. He denies any history of COPD. The patient was admitted to the hospital on May 23 for acute on chronic systolic CHF and dilated cardiomyopathy. He has an EF of 15-20%. He has a history of paroxysmal atrial fibrillation and VT. 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 Review of Systems See HPI for pertinent positives & negatives. A total of 10 systems reviewed and were otherwise negative. Past Medical & Surgical Medical Problems: (1) Benign hypertension (2) Chest pain (3) CHF (congestive heart failure), NYHA class IV (4) Chronic congestive heart failure (5) History of implantable cardiac defibrillator (ICD) (6) Hx of cardiac pacemaker (7) Hyperlipidemia (8) mitral valve repair (9) Paroxysmal A-fib (10) Paroxysmal ventricular tachycardia (11) RBBB Surgical Problems: (1) Hx of mitral valve repair Family History FH: heart disease MOTHER Social History Smoking Status: Former Smoker Drug Use: none Marital Status: Current/Historical Medications Scheduled Amoxicillin (Amoxil), 2,000 MG PO DIRECTED Aspirin Enteric Coated (Ecotrin Or Generic), 81 MG PO DAILY Furosemide (Lasix), 40 MG PO BID Magnesium Oxide (Mg Supplement (Magnesium), 1 CAP PO DAILY Metoprolol Succinate (Metoprolol Succinate ER), 50 MG PO DAILY Omeprazole (Prilosec), 20 MG PO DAILY Potassium Chloride (Klor-Con M20), 20 MEQ PO QAM Allergies Coded Allergies: No Known Allergies (Unverified , 06/17/17) pt Physical Exam Vital Signs Date Time Temp Pulse Resp B/P (MAP) Pulse Ox O2 Delivery O2 Flow Rate FiO2 06/17/17 13:25 98 16 110/77 92 Room Air 06/17/17 13:17 92 Room Air 06/17/17 13:16 98 06/17/17 12:30 97 16 112/74 93 Room Air 06/17/17 11:06 98 20 114/73 95 Room Air 06/17/17 11:04 94 Room Air 06/17/17 10:40 93 Room Air 06/17/17 09:51 36.4 104 20 116/81 100 Room Air 06/17/17 09:50 102 Physical Exam GENERAL: Sitting up in bed, hard of hearing, talking in full sentences, no acute distress EYE EXAM: normal conjunctiva. OROPHARYNX: no exudate, no erythema, lips, buccal mucosa, and tongue normal and mucous membranes are moist NECK: supple, no nuchal rigidity, no adenopathy, non-tender, mild JVD LUNGS: Diminished at the bases. Normal chest wall mechanics HEART: no murmurs, S1 normal and S2 normal ABDOMEN: abdomen soft, non-tender, normo-active bowel sounds, no masses, no rebound or guarding. BACK: Back is symmetrical on inspection and there is no deformity, no midline tenderness, no CVA tenderness. SKIN: no rashes and no bruising UPPER EXTREMITIES: upper extremities are grossly normal. LOWER EXTREMITIES: No pitting edema. Calves equal bilaterally. NEURO EXAM: Normal sensorium, cranial nerves II-XII grossly intact, normal speech, no gross weakness of arms, no gross weakness of legs. Medical Decision & Procedures ER Provider Diagnostic Interpretation: Radiology results as stated below per my review and the radiologist's interpretation: CHEST ONE VIEW PORTABLE CLINICAL HISTORY: 81 years-old Male presenting with EVALUATE RESPIRATORY DISTRESS.DYSPNEA. TECHNIQUE: Portable upright AP view of the chest was obtained. COMPARISON: 05/24/2017. FINDINGS: Left subclavian implanted cardiac defibrillator with leads to the right atrium and right ventricular apex. The leads uptake in unusual coarse suggestive of a left-sided SVC. Atherosclerosis of aortic arch. Cardiac silhouette moderately enlarged. Prosthetic aortic valve. Epicardial pacing wires noted. Lungs and pleural spaces clear. Resolution of pleural effusions. Osseous structures normal. Upper abdomen normal. IMPRESSION: 1. Cardiomegaly. Otherwise no convincing evidence of acute cardiopulmonary disease. 2. Resolution of pleural effusions. Electronically signed by: Dhiraj Bolton M.D. 06/17/2017 10:57 AM Dictated Date/Time: 06/17/2017 10:54 AM Laboratory Results 06/17/17 09:15 Red Blood Count 4.50, Mean Corpuscular Volume 94.4, Mean Corpuscular Hemoglobin 31.1, Mean Corpuscular Hemoglobin Concent 32.9, Mean Platelet Volume 10.2, Neutrophils (%) (Auto) 66.8, Lymphocytes (%) (Auto) 20.0, Monocytes (%) (Auto) 11.7, Eosinophils (%) (Auto) 0.4, Basophils (%) (Auto) 0.8, Neutrophils # (Auto ) 6.00, Lymphocytes # (Auto) 1.80, Monocytes # (Auto) 1.05, Eosinophils # (Auto ) 0.04, Basophils # (Auto) 0.07 06/17/17 09:15 Test 06/17/17 09:15 White Blood Count 8.99 K/uL (4.8-10.8) Red Blood Count 4.50 M/uL (4.7-6.1) Hemoglobin 14.0 g/dL (14.0-18.0) Hematocrit 42.5 % (42-52) Mean Corpuscular Volume 94.4 fL (80-100) Mean Corpuscular Hemoglobin 31.1 pg (25-34) Mean Corpuscular Hemoglobin Concent 32.9 g/dl (32-36) Platelet Count 405 K/uL (130-400) Mean Platelet Volume 10.2 fL (7.4-10.4) Neutrophils (%) (Auto) 66.8 % Lymphocytes (%) (Auto) 20.0 % Monocytes (%) (Auto) 11.7 % Eosinophils (%) (Auto) 0.4 % Basophils (%) (Auto) 0.8 % Neutrophils # (Auto) 6.00 K/uL (1.4-6.5) Lymphocytes # (Auto) 1.80 K/uL (1.2-3.4) Monocytes # (Auto) 1.05 K/uL (0.11-0.59) Eosinophils # (Auto) 0.04 K/uL (0-0.5) Basophils # (Auto) 0.07 K/uL (0-0.2) RDW Standard Deviation 75.5 fL (36.4-46.3) RDW Coefficient of Variation 21.7 % (11.5-14.5) Immature Granulocyte % (Auto) 0.3 % Immature Granulocyte # (Auto) 0.03 K/uL (0.00-0.02) Toxic Vacuolation 1+ Poikilocytosis PRESENT Anisocytosis PRESENT Prothrombin Time 18.1 SECONDS (9.0-12.0) Prothromb Time International Ratio 1.7 (0.9-1.1) Activated Partial Thromboplast Time 29.6 SECONDS (21.0-31.0) Partial Thromboplastin Ratio 1.1 Anion Gap 15.0 mmol/L (3-11) Est Creatinine Clear Calc Drug Dose 28.9 ml/min Estimated GFR () 37.7 Estimated GFR (Non- 32.5 BUN/Creatinine Ratio 14.6 (10-20) Calcium Level 9.5 mg/dl (8.5-10.1) Magnesium Level 2.1 mg/dl (1.8-2.4) Total Bilirubin 5.4 mg/dl (0.2-1) Aspartate Amino Transf (AST/SGOT) 23 U/L (15-37) Alanine Aminotransferase (ALT/SGPT) 14 U/L (12-78) Alkaline Phosphatase 237 U/L (45-117) Pro-B-Type Natriuretic Peptide > 28167 pg/ml (0-1800) Total Protein 8.3 gm/dl (6.4-8.2) Albumin 3.1 gm/dl (3.4-5.0) Globulin 5.2 gm/dl (2.5-4.0) Albumin/Globulin Ratio 0.6 (0.9-2) Laboratory results per my review. Medications Administered Medications (Trade) Dose Ordered Sig/Genoveva Route Start Time Stop Time Status Last Admin Dose Admin Sodium Chloride 250 ml @ 999 mls/hr Q16M STAT IV 06/17/17 10:20 06/17/17 10:35 DC 06/17/17 10:40 999 MLS/HR ECG Per My Interpretation Indication: SOB/dyspnea Rate (beats per minute): 99 Rhythm: sinus rhythm Findings: 1st degree AV block, Q waves (Inferior), RBBB, ST depression (Septal) ED Course ED COURSE: Vital signs were reviewed and showed normal vitals. The patients medical record was reviewed The above diagnostic studies were performed and reviewed. ED treatments and interventions as stated above. 1013: The patient was evaluated in room A10. A complete history and physical examination was performed. 1020: NSS 250 ml @ 999 mls/hr IV. 1225: I spoke with [employer] who interrogated the pacemaker. They found no arrhythmias. 1234: I reevaluated the patient. He is feeling better. I updated him on the results. 1307: I discussed the patient's case [facility]. He recommends admission. 1316: Upon reevaluation, the patient is resting comfortably. I discussed my findings with the patient and he understands and agrees with the treatment plan. Based on the patients age, coexisting illnesses, exam and lab findings the decision to treat as an inpatient was made. The patient remained stable while under my care. The patient will be evaluated for further management. 1319: I reviewed the patient's case with Ann Vargas PA-C [facility] hospitalist. She will evaluate the patient for further management. Medical Decision Differential diagnoses includes but is not limited to pneumonia, bronchitis, COPD/Asthma exacerbation, pneumothorax, pulmonary embolism, congestive heart failure, acute coronary syndrome Patient is an 81-year-old male that presents to ER for dyspnea on exertion. He has a history of cardiomyopathy with an EF of 15-20%. He does have acute on chronic systolic heart failure. Also has a history of A. fib with paroxysmal VT. Pacer and defibrillator in place. This is interrogated. Showed no dysrhythmias. CBC showed no significant leukocytosis. BMP remarkable for bicarbonate 19. Creatinine was elevated at 1.8. BNP was significantly elevated at greater than 35,000. Troponin was negative. INR was slightly subtherapeutic at 1.7 although is not supposed be taking this. Patient was updated at bedside. Discussed with cardiology and they prefer to watch him overnight which I agree due to his complex history. Updated patient at bedside. He was admitted for dyspnea on exertion with likely CHF. Medication Reconcilliation Current Medication List: was personally reviewed by me Blood Pressure Screening Patient's blood pressure: Normal blood pressure Blood pressure disposition: Did not require urgent referral Consults Time Called: 1236 Consulting Physician: Bethany Juarez cardiology Returned Call: [phone] I discussed the patient's case with him. He recommends admission. Additional Consults: Time Called: 1314 Consulted Physician: NICHOLE Espinoza hospitalist Returned Call: [phone] Additional Comments: I reviewed the patient's case with her. She will evaluate the patient for further management. Impression Primary Impression: CHF (congestive heart failure) Scribe Attestation The scribe's documentation has been prepared under my direction and personally reviewed by me in its entirety. I confirm that the note above accurately reflects all work, treatment, procedures, and medical decision making performed by me. Departure Information Dispostion Being Evaluated By Hospitalist Referrals Jared Godoy PA-C (PCP) Patient Instructions My [facility] Problem Qualifiers Primary Impression: CHF (congestive heart failure) Heart failure type: unspecified Heart failure chronicity: unspecified Qualified Codes: I50.9 - Heart failure, unspecified
[2017-06-17] MEDS: FUROSEMIDE INJ 40 MG in SYRINGE 0 ML IV SCH (17:34)
[2017-06-17 19:55] VITALS: BP 100/67; PULSE 95; TEMP 36.3; O2SAT 96
[2017-06-18 00:13] VITALS: BP 113/76; PULSE 98; TEMP 36.7; O2SAT 99
[2017-06-18 04:00] VITALS: BP 109/73; PULSE 97; TEMP 36.3; O2SAT 98
[2017-06-18 06:27] LABS: HEMATOCRIT 36.9 % (42-52); HEMOGLOBIN 12.1 g/dL (14.0-18.0); MEAN CELL VOLUME 92.3 fL (80-100); MEAN CORPUSCULAR HEMOGLOBIN 30.3 pg (25-34); MEAN CORPUSCULAR HGB CONC 32.8 g/dl (32-36); MEAN PLATELET VOLUME 9.3 fL (7.4-10.4); PLATELET COUNT 350 K/uL (130-400); RED CELL DISTRIBUTION WIDTH CV 21.5 % (11.5-14.5); RED CELL DISTRIBUTION WIDTH SD 72.4 fL (36.4-46.3); WHITE BLOOD COUNT 8.88 K/uL (4.8-10.8)
[2017-06-18 06:46] LABS: INR 1.8 (0.9-1.1)
[2017-06-18 06:57] LABS: CALCIUM 8.9 mg/dl (8.5-10.1); CREATININE 1.94 mg/dl (0.60-1.40); POTASSIUM 4.8 mmol/L (3.5-5.1)
[2017-06-18 07:49] VITALS: BP 123/87; PULSE 92; TEMP 36.5; O2SAT 96
[2017-06-18] MEDS: FUROSEMIDE INJ 40 MG in SYRINGE 0 ML IV SCH (08:59)
[2017-06-18] MEDS ORDERED: MAGNESIUM OXIDE 400 MG TAB PO SCH (09:00)
[2017-06-18] MEDS ORDERED: METOPROLOL SUCC 50MG EXT REL TAB PO SCH (09:00)
[2017-06-18] MEDS ORDERED: POTASSIUM CHLORIDE 20 MEQ TABCR PO SCH (09:00)
[2017-06-18] MEDS ORDERED: ASPIRIN 81 MG ECTAB PO SCH (09:00)
[2017-06-18] MEDS ORDERED: PANTOprazole SOD 40 MG TAB PO SCH (09:00)
--- NOTE | 2017-06-18 10:41 | Discharge Instructions ---
Discharge Instructions Date of Service Jun 18, 2017. Admission Reason for Admission: Chronic Congestive Heart Failure Discharge Discharge Diagnosis / Problem: Dyspnea on exertion, CHF Discharge Goals Goal(s): Decrease discomfort Activity Recommendations Activity Limitations: resume your previous activity . Instructions / Follow-Up Instructions / Follow-Up Please see Dr. Patricio at 11:05AM on June 26 Please see Nephrology as scheduled Please see Jared Godoy PA-C on June 27 at 11:15 AM Call your Primary Care doctor if any of the following symptoms or problems start or get worse: * Shortness of breath or difficulty breathing * Wake up at night short of breath * Chest pain * Cough * Swelling of your hands, feet, or legs * More fatigued or tired with your normal activity * Palpitations - sudden fast heart beats WEIGHT * Weigh yourself every morning after using the bathroom. * Use the same scale. * Wear the same amount of clothing. * Write your weight down on a chart. * Call your Primary Care doctor if you gain more than 2-3 pounds in 1-2 days. MEDICATIONS * Use this discharge instruction sheet for medication instructions. * Take your medications at the time your doctor ordered. * Do not skip a dose of your medicines. * If you miss a dose of medicine, take it as soon as possible, but DO NOT DOUBLE A DOSE. * Read your medicine information when you get home. * Know all of the side effects of your medicine. If in doubt, ask your pharmacist * Call your Primary Care doctor's office if you have any side effects. * Be sure all of your doctors know what medicine and herbs you take (including cold, flu, and herbal medicine). Take the following with you to your follow-up doctor appointments: * Weight Chart * Medication List * List of questions Do not drink excessive alcohol, beer or wine. Current Hospital Diet Patient's current hospital diet: AHA Diet (Heart Healthy) Discharge Diet Recommended Diet: AHA Diet (Heart Healthy) Pending Studies Studies pending at discharge: no Laboratory Results Lipid Panel Test 05/24/17 05:46 Range/Units Triglycerides Level 69 0-150 mg/dl Cholesterol Level 102 0-200 mg/dl HDL Cholesterol 17 mg/dl Cholesterol/HDL Ratio 6.0 LDL Cholesterol, Calculated 71 mg/dl Medical Emergencies . Who to Call and When: Call 911 or go to the Emergency Room if: * If at any time you feel your situation is an emergency * You have tightness or pain in your chest that does not go away with rest or Nitroglycerin * You are very short of breath even with rest . Non-Emergent Contact Non-Emergency issues call your: Primary Care Provider, [facility] . . "Provider Documentation" section prepared by Juany Leon. .
--- NOTE | 2017-06-18 10:46 | Discharge Summary ---
Discharge Summary Date of Service Jun 18, 2017. Discharge Summary Admission Date: Jun 17, 2017 at 14:35 Discharge Date: Jun 18, 2017 Discharge Disposition: Home with services (patient refused home care) Principal Diagnosis: Dyspnea on exertion Pending Studies/Follow-Up: Cardiology, Nephrology, PCP follow ups. Medication Reconciliation Continued Medications: Amoxicillin (Amoxil) 500 Mg Cap 2000 MG PO DIRECTED, CAP take prior to dental procedures Aspirin Enteric Coated (Ecotrin Or Generic) 81 Mg Tab 81 MG PO DAILY, TAB Furosemide (Lasix) 40 Mg Tab 40 MG PO BID, #60 TAB 2 Refills Magnesium Oxide (Mg Supplement (Magnesium) 400 Mg Cap 1 CAP PO DAILY Metoprolol Succinate (Metoprolol Succinate ER) 50 Mg Tabcr 50 MG PO DAILY for 30 Days, #30 2 Refills Omeprazole (Prilosec) 20 Mg Capcr 20 MG PO DAILY, CAP Potassium Chloride (Klor-Con M20) 20 Meq Tabcr 20 MEQ PO QAM, #30 2 Refills Admission Information HPI (per Admitting provider): Pt is 81 y/o M with PMH CAD, mitral regurgitation S/P MV repair in 2002, PFO S/ P closure in 2012, cardiomyopathy with EF: 15-20%, paroxysmal A. fib, paroxysmal VT, RBBB, first-degree AV block, status post pacer/defibrillator, HTN , HLD presented to ER with complaint of shortness of breath with exertion. Patient was admitted on 05/23/17 through 05/31/17 for fluid overload, NAM, supratherapeutic INR and received IV Lasix at that time with approximately 30 pound weight loss during that admission. Patient had his Coumadin stopped, Lasix was increased to 40 mg p.o. twice daily, metoprolol decreased to 50 mg once daily. Patient states since with intermittent lower extremity edema but feels like it is improved. He denies any changes in his weight. Patient states has some sensation that needs to catch his breath this has occurred a couple of times over the last couple of weeks. Patient reports is usually one pillow to sleep and is denying any orthopnea or PND. Pt reports decreased appetite past several days. Spoke to pt's on phone. She reports pt stated this morning was more SOB with walking and he felt he needed to come to ER. also reports patient has only been drinking grape juice and a little water and not eating well. has noticed patient is forgetful and she has been managing his medicines. Patient admits to scratching scabs he has to his extremities denies any surrounding erythema or discharge. Patient is denying any chest pain. He states generally sits for most of the day, does often hold onto things while walking around the house. Denies any falls. Denies fever/ chills, diaphoresis, N/V/D/C, MALONE, dizziness, syncope, vision changes, neck pain , palpitations, cough, sore throat, choking, otalgia, rhinorrhea, abdominal pain , paresthesias, extremity weakness, urinary symptoms. Patient had echo on 05/23/17: EF: 15-20%, severe global hypokinesis, prior mitral valve repair with mild to moderate stenosis, moderate elevation right heart pressures. Physical Exam (per Admitting): General Appearance: WD/WN, no apparent distress Head: normocephalic, atraumatic Eyes: normal inspection, PERRL, EOMI, sclerae normal ENT: hearing grossly normal, pharynx normal, + pertinent finding (mucous membranes moist) Neck: supple, no JVD, trachea midline Respiratory/Chest: lungs clear, normal breath sounds, no respiratory distress, no accessory muscle use Cardiovascular: regular rate, rhythm, normal peripheral pulses, + systolic murmur Abdomen/GI: normal bowel sounds, non tender, soft Extremities/Musculoskelatal: no calf tenderness, normal capillary refill, + pedal edema (2+ pretibial pitting edema) Neurologic/Psych: alert, normal mood/affect, oriented x 3 Skin: normal color, warm/dry, + pertinent finding (+scattered scabs to bilateral upper and lower extremities without surrounding erythema or edema) Hospital Course ACUTE ON CHRONIC SYSTOLIC CHF EXACERBATION: -resolved after 2 doses of lasix -patient insisting on going home, wished to sign AMA -dyspnea on exertion intermittently. Denies CP, orthopnea or PND. In ER 92-100% on room air, respirations 20, pulse 98-104, BP: 116/81-129/80, afebrile. Initial troponin negative. No leukocytosis. BNP >19537. -TTE 05/23/17 EF: 15-20%; patient was informed of this previously and again today -CXR: Cardiomegaly, no acute changes. Resolution of pleural effusions. -Lasix 40 mg IV twice daily -fluid restriction -Monitor I's & O's and daily weights -Cardiology consult appreciate input -monitor electrolytes HYPONATREMIA: -Na: 132-->131 -fluid restriction -monitor electrolytes CKD STAGE III: -Cr: 1.9, baseline 1.6 -monitor renal function -avoid nephrotoxic agents when possible PAROXYSMAL A-FIB, V. TACH S/P PACER/DEFIBRILLATOR, Hx MITRAL REGURGITATION S/P MITRAL VALVE REPAIR -has been off Coumadin. 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 HEENT: No acute trauma, normocephalic, mucous membranes moist, no nasal congestion, no scleral icterus, conjunctivae clear, [place] NECK: No stridor, trachea is midline. LUNGS: Clear to auscultation bilaterally, no wheeze, no rhonchi, breath sounds equal. HEART: Without gallops or rubs, regular rate and rhythm. +J LUIS ABDOMEN: Soft, nontender, bowel sounds positive EXTREMITIES: No cyanosis; trace LE edema, full range of motion of all the joints without pain or difficulty, no signs for acute trauma. NEUROLOGIC: Oriented x 3, no acute motor or sensory deficits, no focal weakness. SKIN: No rash, no jaundice, no diaphoresis. Total time spent on discharge = 37 This includes examination of the patient, discharge planning, medication reconciliation, and communication with other providers. Discharge Instructions see patient instructions
[2017-06-18 11:18] VITALS: BP 123/87; PULSE 92; TEMP 36.5; O2SAT 96
[2017-06-18 11:36] VITALS: BP 105/72; PULSE 79; TEMP 36.5; O2SAT 97
== END 2017-06-18 11:49 | disposition home or self-care (01) ==
LOC: EDBD 09:43 → C.EDA 09:46 → C.MED 14:35 → ENRESERV 16:02
PROVIDERS: ADMIT Internal Medicine; ATTEND Internal Medicine
DX: I50.23 Acute on chronic systolic (congestive) heart failure (principal); E87.1 Hypo-osmolality and hyponatremia; N18.3 Chronic kidney disease, stage 3 (moderate); I45.81 Long QT syndrome; R06.02 Shortness of breath; I12.9 Hypertensive chronic kidney disease with stage 1 through stage 4 chronic kidney disease, or unspecified chronic kidney disease; I25.10 Atherosclerotic heart disease of native coronary artery without angina pectoris; Z95.5 Presence of coronary angioplasty implant and graft; I48.0 Paroxysmal atrial fibrillation; E78.5 Hyperlipidemia, unspecified; Z82.49 Family history of ischemic heart disease and other diseases of the circulatory system; Z87.891 Personal history of nicotine dependence; Z79.82 Long term (current) use of aspirin; Z91.19 Patient's noncompliance with other medical treatment and regimen

== ENCOUNTER 2017-07-25 21:18 | Inpatient (IN) | payer MEDICARE, OTHER ==
[~2017-07-25] VITALS: Ht 175.3 cm; Wt 69.4 kg
[~2017-07-25 21:18] MED LIST changes: +ASPI-319 PO; -ASPI81TA21 PO
[2017-07-25 22:00] LABS: HEMATOCRIT 40.1 % (42-52); IG# 0.02 K/uL (0.00-0.02); LYMPH % 7.9 %; LYMPH ABS # 0.59 K/uL (1.2-3.4); MEAN CELL VOLUME 92.8 fL (80-100); MEAN CORPUSCULAR HEMOGLOBIN 32.4 pg (25-34); MEAN CORPUSCULAR HGB CONC 34.9 g/dl (32-36); MEAN PLATELET VOLUME 9.7 fL (7.4-10.4); MONO ABS # 0.37 K/uL (0.11-0.59); NEUT % 86.8 %; NEUT ABS # 6.47 K/uL (1.4-6.5); PLATELET COUNT 242 K/uL (130-400); RED CELL DISTRIBUTION WIDTH CV 19.2 % (11.5-14.5); RED CELL DISTRIBUTION WIDTH SD 64.8 fL (36.4-46.3); WHITE BLOOD COUNT 7.45 K/uL (4.8-10.8)
[2017-07-25] MEDS ORDERED: DEXTROSE 50% 50 ML SYR IV STA ×2 (22:08)
[2017-07-25] MEDS ORDERED: ALBUTEROL 0.083% NEBU SOLN 3 ML VIAL INH STA (22:08)
[2017-07-25] MEDS ORDERED: CALCIUM GLUCONATE 10% 10 ML VIAL IV STA (22:08)
[2017-07-25] MEDS ORDERED: FRS/40 PO (22:13)
--- NOTE | 2017-07-25 22:16 | EMERGENCY ROOM VISIT NOTE ---
History Report prepared by Pam: Apollo Ervin Under the Supervision of: Dr. Helio Gallardo M.D. First contact with patient: 21:38 Chief Complaint: WEAKNESS Stated Complaint: WEAKNESS Nursing Triage Summary: Patient arrived via EMS. PAtient reports the last few days he has been getting weaker. Patient reports it is difficult to get out of bed or move around the house without getting short of breath and resting. Patient reports no CP or SOB at this time. Patient has a pacer placed. History of Present Illness The patient is a 81 year old white male with a past medical history of CHF, HTN , and HLD who presents to the ED with a cc of worsening weakness beginning a couple of days ago. The patient states he had difficulty with getting out of bed this morning. He reports he has not eaten for the past two days due to a lack of appetite. Positive lack of appetite. Negative chest pain, SOB, nausea, urinary symptoms, abnormal bowel movements, new lower extremity edema. Source of History: patient Onset: a couple of days ago Position: other (global) Quality: other (weakness) Timing: worsening Associated Symptoms: No chest pain, No SOB, No nausea, No urinary symptoms Note: Positive: lack of appetite Review of Systems See HPI for pertinent positives and negatives. A total of ten systems were reviewed and were otherwise negative. Past Medical & Surgical Medical Problems: (1) NAM (acute kidney injury) (2) Benign hypertension (3) Chest pain (4) CHF (congestive heart failure), NYHA class IV (5) Chronic congestive heart failure (6) History of implantable cardiac defibrillator (ICD) (7) Hx of cardiac pacemaker (8) Hyperkalemia (9) Hyperlipidemia (10) mitral valve repair (11) Paroxysmal A-fib (12) Paroxysmal ventricular tachycardia (13) RBBB Surgical Problems: (1) Hx of mitral valve repair Family History FH: heart disease MOTHER Social History Smoking Status: Never Smoker Drug Use: none Marital Status: Current/Historical Medications Scheduled Amoxicillin (Amoxil), 2,000 MG PO DIRECTED Aspirin Enteric Coated (Ecotrin Or Generic), 81 MG PO DAILY Furosemide (Lasix), 40 MG PO BID Magnesium Oxide (Magnesium Oxide), 1 CAP PO DAILY Metoprolol Succinate (Metoprolol Succinate ER), 50 MG PO DAILY Omeprazole (Prilosec), 20 MG PO DAILY Potassium Chloride (Klor-Con M20), 20 MEQ PO QAM Spironolactone (Spironolactone), 12.5 MG PO DAILY Allergies Coded Allergies: No Known Allergies (Unverified , 07/25/17) pt Physical Exam Vital Signs Date Time Temp Pulse Resp B/P (MAP) Pulse Ox O2 Delivery O2 Flow Rate FiO2 07/26/17 00:01 112/81 07/26/17 00:00 87 20 95 07/25/17 23:10 95 20 97 Room Air 07/25/17 23:01 117/77 07/25/17 22:50 92 20 95 07/25/17 22:26 77 16 95 Room Air 07/25/17 21:58 96 Room Air 07/25/17 21:52 80 07/25/17 21:47 81 20 92/53 100 Room Air 07/25/17 21:28 37.2 83 16 92/53 98 Room Air Physical Exam GENERAL: Awake, alert, well-appearing, NAD, wearing glasses, thinning hair HENT: Normocephalic, atraumatic. EYES: Normal conjunctiva. Sclera non-icteric. PERRL. No anisocoria. NECK: Supple. No nuchal rigidity. FROM. RESPIRATORY: CTAB, no rhonchi, wheezing, bibasilar crackles, decreased breath sounds at the bases. CARDIAC: RRR, no MRG ABDOMEN: Soft, NTND, BS+ MSK: No chest wall TTP, 2+ pitting edema bilaterally LE, device in the left chest. NEURO: GCS 15, CN 2-12 intact, moves all 4s on command SKIN: No rash or jaundice noted. Medical Decision & Procedures ER Provider Diagnostic Interpretation: X-ray: Per my interpretation, radiologist review. CHEST ONE VIEW PORTABLE CLINICAL HISTORY: EVALUATE WEAKNESS dyspnea COMPARISON STUDY: 06/17/2017 FINDINGS: Mild cardiomegaly. Potential small parenchymal infiltrate medial left base. Lungs otherwise appear clear. Permanent bipolar cardiac pacemaker in position. IMPRESSION: Potential small parenchymal infiltrate medial left base. The above report was generated using voice recognition software. It may contain grammatical, syntax or spelling errors. Electronically signed by: Jared Alexander M.D. 07/25/2017 10:14 PM Dictated Date/Time: 07/25/2017 10:13 PM Laboratory Results 07/25/17 21:45 Red Blood Count 4.32, Mean Corpuscular Volume 92.8, Mean Corpuscular Hemoglobin 32.4, Mean Corpuscular Hemoglobin Concent 34.9, Mean Platelet Volume 9.7, Neutrophils (%) (Auto) 86.8, Lymphocytes (%) (Auto) 7.9, Monocytes (%) (Auto) 5.0, Eosinophils (%) (Auto) 0.0, Basophils (%) (Auto) 0.0, Neutrophils # (Auto) 6.47, Lymphocytes # (Auto) 0.59, Monocytes # (Auto) 0.37, Eosinophils # (Auto) 0.00, Basophils # (Auto) 0.00 Test 07/25/17 21:45 07/25/17 22:02 07/25/17 22:05 07/25/17 22:06 White Blood Count 7.45 K/uL (4.8-10.8) Red Blood Count 4.32 M/uL (4.7-6.1) Hemoglobin 14.0 g/dL (14.0-18.0) Hematocrit 40.1 % (42-52) Mean Corpuscular Volume 92.8 fL (80-100) Mean Corpuscular Hemoglobin 32.4 pg (25-34) Mean Corpuscular Hemoglobin Concent 34.9 g/dl (32-36) Platelet Count 242 K/uL (130-400) Mean Platelet Volume 9.7 fL (7.4-10.4) Neutrophils (%) (Auto) 86.8 % Lymphocytes (%) (Auto) 7.9 % Monocytes (%) (Auto) 5.0 % Eosinophils (%) (Auto) 0.0 % Basophils (%) (Auto) 0.0 % Neutrophils # (Auto) 6.47 K/uL (1.4-6.5) Lymphocytes # (Auto) 0.59 K/uL (1.2-3.4) Monocytes # (Auto) 0.37 K/uL (0.11-0.59) Eosinophils # (Auto) 0.00 K/uL (0-0.5) Basophils # (Auto) 0.00 K/uL (0-0.2) RDW Standard Deviation 64.8 fL (36.4-46.3) RDW Coefficient of Variation 19.2 % (11.5-14.5) Immature Granulocyte % (Auto) 0.3 % Immature Granulocyte # (Auto) 0.02 K/uL (0.00-0.02) Phosphorus Level 5.4 mg/dl (2.5-4.9) Total Bilirubin 7.7 mg/dl (0.2-1) Alanine Aminotransferase (ALT/SGPT) 31 U/L (12-78) Alkaline Phosphatase 139 U/L (45-117) Pro-B-Type Natriuretic Peptide > 84838 pg/ml (0-1800) Total Protein 7.5 gm/dl (6.4-8.2) Albumin 3.0 gm/dl (3.4-5.0) Lipase 95 U/L (73-393) Thyroid Stimulating Hormone (TSH) 3.060 uIu/ml (0.300-4.500) Bedside Lactic Acid Venous 6.22 mmol/L (0.90-1.70) Bedside Troponin I 0.040 ng/ml (0-0.045) Bedside Hemoglobin 15.6 g/dl (14.0-18.0) Bedside Hematocrit 46 % (42-52) Bedside Sodium 125 mEq/L (135-144) Bedside Potassium 6.3 mEq/L (3.3-5.0) Bedside Chloride 89 mEq/L (101-112) Bedside Total CO2 22 mEq/l (24-31) Bedside Blood Urea Nitrogen 61 mg/dl (7-18) Bedside Creatinine 2.7 mg/dl (0.6-1.3) Bedside Glucose (other) 47 mg/dl (70-99) Bedside Ionized Calcium (Blanca) 0.88 mmol/l (1.12-1.32) Test 07/25/17 23:09 07/25/17 23:49 Prothrombin Time 22.5 SECONDS (9.0-12.0) Prothromb Time International Ratio 2.2 (0.9-1.1) Activated Partial Thromboplast Time 33.0 SECONDS (21.0-31.0) Partial Thromboplastin Ratio 1.3 Magnesium Level 2.0 mg/dl (1.8-2.4) Direct Bilirubin 5.8 mg/dl (0-0.2) Aspartate Amino Transf (AST/SGOT) 42 U/L (15-37) Lactic Acid Level 4.7 mmol/L (0.4-2.0) Laboratory results reviewed by me Medications Administered Medications (Trade) Dose Ordered Sig/Genoveva Route Start Time Stop Time Status Last Admin Dose Admin Dextrose (Dextrose 50% 50ML Syringe) 50 ml NOW STAT IV 07/25/17 22:08 07/25/17 22:10 DC 07/25/17 22:34 50 ML Dextrose (Dextrose 50% 50ML Syringe) 50 ml NOW STAT IV 07/25/17 22:08 07/25/17 22:10 DC 07/25/17 22:34 50 ML Calcium Gluconate (Calcium Gluconate 10%) 3,000 mg NOW STAT IV 07/25/17 22:08 07/25/17 22:10 DC 07/25/17 22:33 3,000 MG Albuterol Sulfate (Ventolin 0.083% 2.5MG/3ML Neb) 15 mg NOW STAT INH 07/25/17 22:08 07/25/17 22:10 DC 07/25/17 22:23 15 MG ECG Per My Interpretation Indication: weakness Rate (beats per minute): 81 Rhythm: normal sinus Findings: Q waves (Lateral, Inferior), RBBB, other (wide QRS, prolonged QT, depressions anterior) Comparison ECG Date: 06/18/17 Change: no significant change ED Course 2147: The patient was evaluated in room B07. A complete history and physical exam was performed. 2243: I discussed the patients case with Dr. Marinelli, [facility]. He understands the patients condition and agrees to accept the patient. The patient will be further evaluated. Medical Decision Nursing notes reviewed. Ancillary studies and prior records reviewed. The patient is a 81 year old white male with a past medical history of CHF, HTN , and HLD who presents to the ED with a cc of worsening weakness beginning a couple of days ago. The patient's presentation and history were concerning for etiologies such as metabolic, infection, hypo/hyperglycemia, electrolyte abnormalities, cardiac sources, intracerebral event, toxicologic, neurologic, as well as others were entertained. Patient was seen and evaluated at the bedside. Patient was presented with complaints of decreased p.o. intake, and generalized fatigue. Patient denies any chest pains or shortness of breath. On exam the patient does have some lower extremity swelling, decreased breath sounds and crackles at the bases. Patient did have blood work completed along with a lactate. Patient's initial EKG was read by the machine due to HI however this does appear unchanged from previous EKGs. Again the patient denies any active chest pains or shortness of breath. Patient did have a lactate greater than 6. IV fluids were initial given. His initial [id number] BNP showed an elevated potassium. His potassium was 6.3. Patient was immediately given insulin IV 5 units, 2 A of D50 , and albuterol 15 mg. He was also given 20 g of calcium gluconate. There was also a concern of hypoglycemia at 45. Patient was given 2 A of D50. Patient was not altered however this may be part of the issue of his weakness and his decreased p.o. intake. Patient's other blood work showed a BNP was greater than 35,000. Troponin not elevated. The patient does have significant cardiac history with a severely depressed EF at 15% does have an AICD pacemaker. Patient WB count within normal limits. Patient is not anemic. Patient does have some hypocalcemia. Replete potassium after treatment is less than 6. I did discuss the case with the on-call hospitalist who agreed to further evaluate and treat patient. We did discuss the possibility of using Lasix however will hold off for now given the patient's softer blood pressures and elevated lactate. Patient was admitted to the medicine service. Medication Reconcilliation Current Medication List: was personally reviewed by me Blood Pressure Screening Patient's blood pressure: Normal blood pressure Consults Time Called: [phone] [facility]: [phone] He understands the patients condition and agrees to accept the patient. The patient will be further evaluated. Impression Primary Impression: Hyperkalemia Additional Impressions: Hypoglycemia CHF (congestive heart failure) Elevated lactic acid level Critical Care I have personally spent greater than 42 minutes of critical care time in the direct management of this patient. This includes bedside care, interpretation of diagnostic studies, and testing, discussion with consultants, patient, and family members, and other required patient management activities. This 42 minutes is in excess of all separately billable procedures. Scribe Attestation The scribe's documentation has been prepared under my direction and personally reviewed by me in its entirety. I confirm that the note above accurately reflects all work, treatment, procedures, and medical decision making performed by me. Departure Information Dispostion Being Evaluated By Hospitalist Prescriptions Magnesium Oxide (MAGNESIUM OXIDE) 400 Mg Cap 1 CAP PO DAILY for 30 Days, #30 CAP 1 Refill Prov: Joe Marinelli MD 07/26/17 Spironolactone (Spironolactone) 25 Mg Tab 12.5 MG PO DAILY, #10 Prov: Joe Marinelli MD 07/26/17 Furosemide (Lasix) 40 Mg Tab 40 MG PO BID, #20 TAB Prov: Joe Marinelli MD 07/26/17 Referrals Jared Godoy PA-C (PCP) Patient Instructions My [facility] Problem Qualifiers Additional Impressions: CHF (congestive heart failure) Heart failure type: unspecified Heart failure chronicity: acute on chronic Qualified Codes: I50.9 - Heart failure, unspecified
[2017-07-25] MEDS ORDERED: SPR25 PO (22:17)
[2017-07-25] MEDS ORDERED: NovoLIN-R INSULIN PER UNIT CHARGE ONE (22:18)
[2017-07-25 22:19] LABS: ISTAT CREATININE 2.7 mg/dl (0.6-1.3); ISTAT IONIZED CALCIUM 0.88 mmol/l (1.12-1.32); ISTAT POTASSIUM 6.3 mEq/L (3.3-5.0)
[2017-07-25 22:26] VITALS: PULSE 77; O2SAT 95
[2017-07-25 22:35] LABS: ALKALINE PHOSPHATASE 139 U/L (45-117); ALT/SGPT 31 U/L (12-78); BLOOD UREA NITROGEN 45 mg/dl (7-18); CALCIUM 9.3 mg/dl (8.5-10.1); CARBON DIOXIDE 19 mmol/L (21-32); CREATININE 2.78 mg/dl (0.60-1.40); GLUCOSE 45 mg/dl (70-99); LIPASE 95 U/L (73-393); PHOSPHORUS 5.4 mg/dl (2.5-4.9); SODIUM 125 mmol/L (136-145); TOTAL PROTEIN 7.5 gm/dl (6.4-8.2)
[2017-07-25 23:30] LABS: INR 2.2 (0.9-1.1)
[2017-07-25 23:45] LABS: POTASSIUM 5.1 mmol/L (3.5-5.1)
[2017-07-26] VITALS (17 sets, daily range): BP systolic 90–114; BP diastolic 59–101; PULSE 69–85; TEMP 36–36.5; O2SAT 91–99; Ht 175.3 cm; Wt 69.4 kg
[2017-07-26] MEDS ORDERED: POLYETHYLENE (MIRALAX) 17 GM PACK PO PRN (00:15)
[2017-07-26] MEDS ORDERED: NITROGLYCERIN 0.4 MG SL PER TAB CHARGE SL PRN (00:15)
[2017-07-26] MEDS ORDERED: ONDANSETRON INJ 2 MG/ML 2 ML VIAL IV PRN (00:15)
[2017-07-26] MEDS ORDERED: MAGNESIUM HYDROXIDE SUSP 30 ML UDC PO PRN (00:15)
[2017-07-26] MEDS ORDERED: ACETAMINOPHEN 325 MG TAB PO PRN (00:15)
[2017-07-26] MEDS ORDERED: FRS/40 PO (00:18)
[2017-07-26] MEDS ORDERED: SPR25 PO (00:18)
[2017-07-26] MEDS ORDERED: MAGN400C2 PO (00:18)
[2017-07-26 00:57] LABS: CALCIUM 9.5 mg/dl (8.5-10.1); CREATININE 2.74 mg/dl (0.60-1.40); POTASSIUM 4.8 mmol/L (3.5-5.1)
[2017-07-26] MEDS: D5W AND NSS 1,000 ML IV SCH ×2 (02:51→23:23)
[2017-07-26] MEDS: CEFTRIAXONE SOD INJ 1 GM in DEXTROSE 5% ADD-VANTAGE 50ML 50 ML IV SCH (02:53)
[2017-07-26] MEDS: DOXYCYCLINE IV 100 MG in DEXTROSE 5% 100ML 100 ML IV SCH ×2 (03:47→15:36)
--- NOTE | 2017-07-26 04:20 | HISTORY & PHYSICAL EXAMINATION ---
DATE OF ADMISSION: 07/25/2017 CHIEF COMPLAINT: Generalized weakness, poor appetite, on and off shortness of breath. HISTORY OF PRESENT ILLNESS: This is an 81-year-old male with past medical history significant for chronic systolic CHF with EF of around 15%, history of paroxysmal ventricular tachycardia, history of hypertension, chronic kidney disease stage III, history of mitral valve regurgitation, hyperlipidemia, hypertension, paroxysmal atrial fibrillation, mitral stenosis, status post ICD, who presents with the weakness, shortness of breath, and poor appetite. The patient says since last 1 week he is not feeling good, is feeling weak and tired, and in last 2 days, he did not eat anything, did not feel like eating, and on and off shortness of breath, but right now he is not feeling short of breath. Denies any fever or chills. He has some dry cough. He denies any headaches, no blurred vision. Hard of hearing, seeing okay. Denies any sore throat or earache. Denies any chest pain, no nausea, no vomiting, no abdominal pain. States his bowel and bladder are moving okay. Says is ambulating okay at home. Lives with his . Denies any skin rash. ALLERGIES: No known drug allergies. PAST MEDICAL HISTORY: As mentioned above. PAST SURGICAL HISTORY: Reconstruction of mitral valve with ring, repair of atrial septal defect with bypass, colonoscopy. MEDICATIONS: The patient is currently on aspirin 81 mg p.o. daily, Lasix 40 mg p.o. b.i.d., magnesium 400 mg p.o. daily, Toprol-XL 50 mg p.o. daily, omeprazole 20 mg p.o. daily, potassium chloride 20 mEq p.o. daily, spironolactone 12.5 mg p.o. daily. FAMILY HISTORY: Significant for father had throat cancer. Mother had heart disorder. Brother had stroke. SOCIAL HISTORY: Former smoker, quit in 1971 but smoked 2 packs a day for 10 years. No alcohol use, no drug use. Lives with his . REVIEW OF SYMPTOMS: As per HPI. Rest of review of systems negative. PHYSICAL EXAMINATION: GENERAL: The patient is somewhat old and frail, not in acute distress. VITAL SIGNS: Temperature 37.2, pulse 95, respiratory rate 20, blood pressure 117/77, oxygen saturation 97% room air. HEENT: No pallor or icterus present. Pupils equal, round, and reactive to light. NECK: No nodes, no JVD, no carotid bruits. CARDIOVASCULAR SYSTEM: S1 and S2 heard, tachycardia. No murmur in the mitral area. RESPIRATORY SYSTEM: Normal AP diameter. No accessory muscle use. No wheezing, no crackles. ABDOMEN: Soft, bowel sounds present. Nontender, no distention. CENTRAL NERVOUS SYSTEM: Cranial nerves II through XII grossly intact. EXTREMITIES: On lower extremities, bilateral pedal edema +2. No erythema seen. LABORATORY DATA: WBC 7.4, hemoglobin 14, hematocrit 46, platelets 242. Sodium 125, potassium 6.3, chloride 89, CO2 of 22, BUN 51, creatinine 2.7, serum glucose 41. Point of care lactic acid 6.2, calcium 0.8, magnesium 2, total bilirubin 7.7, direct bilirubin 5.8, AST 42, ALT 31, alkaline phosphatase 139. Point of care troponin 0.04. Lipase 95. TSH 3.06. PT 22.5, INR 2.2, APTT 23. Chest x-ray shows potential small parenchymal infiltrate, medial left base. EKG with rate of 81, normal sinus rhythm, right bundle-branch block, prolonged QT, no significant changes to previous EKG. ASSESSMENT AND PLAN: This 81-year-old male presents with the generalized weakness, cough, somewhat feeling short of breath, and found to have hyperkalemia, hyponatremia, acute kidney injury, hypoglycemia, and possible pneumonia. We will admit to telemetry floor. 1. Hyperkalemia. The patient was on Lasix and Aldactone before, but the Aldactone was stopped because of rise in creatinine, and it was restarted recently on July 11 and is also on potassium supplements. We will hold his Aldactone and his potassium supplements. Point of care potassium of 6.3. Received IV dextrose, calcium gluconate, and albuterol and insulin. Repeat lab showed 5.1. We will repeat the labs again. On gentle fluids. Consult nephrology in the a.m. 2. Acute kidney injury on chronic kidney disease stage III. Baseline creatinine around 1.5-1.6. Labs showed creatinine of 2.7. Holding diuretics and on gentle fluids. Follow the labs. Consulted Nephrology. 3. Hyponatremia, possibly from congestive heart failure or from diuretics. Holding the diuretics and gentle fluids. Follow the labs in the a.m. Current sodium of 125. 4. Elevated lactic acid, possibly secondary to congestive heart failure and congestive hepatopathy. Does not look like patient has sepsis. Point of care lactic acid 6. but repeat lactic acid is 4.7. Gentle fluids. Follow the repeat lactic acid in am. 5. Possible pneumonia. He has some dry cough and left lower base pulmonary infiltrate. We will empirically start on Rocephin and doxycycline. 6. Hypoglycemia.No appetite since last few days. Says not eating since 2 days. On D5ns. Will monitor. 7. Chronic systolic congestive heart failure with ejection fraction of 15%. Holding the diuretics as above. Continue Toprol-XL with Holding parameters, daily weights. The patient's chest x-ray, there is no congestion. We will closely follow on gentle fluids, watch for volume overload. Consult cardiology for further recommendations. 8. History of paroxysmal atrial fibrillation, ventricular tachycardia, status post pacer defibrillator, history of mitral regurgitation, status post mitral valve repair. The patient's Coumadin was stopped previous admission in May first week because of fall risk and difficult to monitor his Coumadin levels, and also, patient has congestive hepatopathy, CHF, and INR is elevated at 2.2 on this admission, on aspirin and metoprolol. We will monitor on tele floor. 9. Prolonged QT. Avoid QTC prolonging agents, 10.hypertension. Continue metoprolol. Hold on diuretics. Monitor the blood pressure. 11. Congestive hepatopathy. Raise in bilirubin level. elevated INR. Closely monitor for volume overload. Cardiology consulted and await further recommendations. 12. Deep vein thrombosis prophylaxis. SCDs and TEDs.INR is elevated 13. Disposition: Admit to tele floor. PT/OT for discharge. instructional services librarian to help with discharge planning. May need palliative care consult. 14. Code status. Full code for now. MTDD
[2017-07-26 06:51] LABS: ALBUMIN 2.6 gm/dl (3.4-5.0); CALCIUM 8.9 mg/dl (8.5-10.1); CREATININE 2.72 mg/dl (0.60-1.40); POTASSIUM 4.8 mmol/L (3.5-5.1); TOTAL PROTEIN 6.6 gm/dl (6.4-8.2)
[2017-07-26] MEDS ORDERED: INSULIN HUMAN REGULAR SC SCH (07:00)
--- NOTE | 2017-07-26 08:16 | DIAGNOSTIC IMAGING REPORT ---
CHEST ONE VIEW PORTABLE HISTORY: Short of breath. Congestive heart failure. COMPARISON: Chest 07/25/2017. FINDINGS: The heart remains enlarged. Left-sided pacemaker/defibrillator is noted. There is suggestion of a left-sided SVC, unchanged. Cardiac valve prosthesis is again noted. The right lung is essentially clear. Patchy left lower lobe airspace opacity with a trace left pleural effusion. IMPRESSION: 1. Patchy left lower lobe airspace opacity with a trace left pleural effusion. This likely represents a pneumonia. Recommend follow-up to complete resolution. 2. The heart remains mildly enlarged. Electronically signed by: Erik Plaza M.D. 07/26/2017 8:14 AM Dictated Date/Time: 07/26/2017 8:13 AM
[2017-07-26] MEDS: ASPIRIN 81 MG ECTAB PO SCH (08:26)
[2017-07-26] MEDS: PANTOprazole SOD 40 MG TAB PO SCH (08:26)
[2017-07-26] MEDS: METOPROLOL SUCC 50MG EXT REL TAB PO SCH (08:26)
[2017-07-26] MEDS: MAGNESIUM OXIDE 400 MG TAB PO SCH (10:00)
--- NOTE | 2017-07-26 10:10 | NEPHROLOGY CONSULTATION ---
DATE OF CONSULTATION: 07/26/2017 ATTENDING OF RECORD: Dr. Ansari. REASON FOR CONSULTATION: NAM. HISTORY OF PRESENT ILLNESS: This is an unfortunate 81-year-old male with significant cardiac disease with an EF of 15%, also has paroxysmal AFib, mitral stenosis, history of a defibrillator, who has baseline CKD stage III and comes in with a creatinine in the mid 2s with failure to thrive symptoms with generalized weakness, decreased appetite, not feeling well. Sodium levels were low at 125. Lactic acid was elevated at 4.7 and now slowly trending down. The patient was able to eat breakfast this morning and is drinking liquids well today. PAST MEDICAL HISTORY: Hypertension, CKD stage III, hyperlipidemia, paroxysmal AFib, cardiomyopathy with an EF of 15%, paroxysmal AFib. PAST SURGICAL HISTORY: Reconstruction of the mitral valve with a ring, repair of atrial septal defect, defibrillator placement. FAMILY HISTORY: Significant for heart disease. SOCIAL HISTORY: Former smoker, no alcohol, no drugs. Lives with . REVIEW OF SYSTEMS: Positive weight loss. Positive decreased appetite. Positive shortness of breath. No chest pain, no nausea, vomiting, no diarrhea or constipation, no dysuria or hematuria. No itching or rash. All other review of systems otherwise negative. CURRENT MEDICATIONS: 1. Aspirin 81 mg a day. 2. Toprol-XL 50 mg a day. 3. Protonix 40 mg a day. 4. Mag-ox 400 mg a day. 5. Doxycycline 100 mg IV q. 12. 6. Ceftriaxone 1 g IV q. 24. 7. D5 normal saline at 30 mL an hour. PHYSICAL EXAMINATION: VITAL SIGNS: Temperature 36.4, pulse 77, respiratory rate 18, blood pressure 98/63, satting 91% on room air. GENERAL: Awake, alert, oriented x3. EYES: Jaundiced eyes. Positive scleral icterus. ENT: Moist mucous membranes. NECK: Supple. PULMONARY: Diminished at the bases. CARDIAC: Regular with 2/6 systolic murmur. ABDOMEN: Bowel sounds positive, soft, nontender. EXTREMITIES: No significant clubbing, cyanosis or edema. NEUROLOGICAL: Nonfocal. DERMATOLOGIC: No rash or ulcers noted. LABORATORY DATA: Sodium is 124, potassium is 4.8, chloride is 90, bicarbonate is 21, BUN is 46, creatinine is 2.7. Lactic acid 2.9, glucose 202, mag is 1.8. T-bili 6.3, albumin is 2.6. Chest x-ray shows patchy left lower lobe opacity with trace left pleural effusion, possibly representing a pneumonia, enlarged heart. ASSESSMENT AND PLAN: Acute kidney injury on chronic kidney disease stage III in the setting of significant cardiomyopathy, now with jaundice and elevated T-bili possibly from passive congestion with failure to thrive symptoms. Overall, a complicated situation with a likely overall poor prognosis. Would like to give a very gentle amount of fluids. The patient has a high propensity of going into heart failure given his poor nutritional status with low albumin and a poor cardiac function with an EF of 15%. Okay with normal saline at 30 mL an hour and then reevaluate tomorrow with the likelihood of stopping the IV fluids tomorrow. I do not feel the patient would benefit from dialysis at this time. Hopefully, creatinine slowly improves through the gentle hydration and withholding of any diuretics, although will be concerning if patient does develop CHF with the worsening kidney function, with the overall feeling of passive congestion with elevated T-bili. The patient having multisystem organ failure currently and slowly decompensating with failure to thrive symptoms with chronic problems that would not be corrected given poor cardiac function, poor liver function, and now worsening kidney function. I appreciate the consultation. FLAVIO
--- NOTE | 2017-07-26 11:02 | Progress Note ---
Subjective Date of Service: Jul 26, 2017. Subjective Pt evaluation today including: conversation w/ patient, conversation w/ family , physical exam, chart review, lab review, review of studies, conversation w/ sales support consultant, review of inpatient medication list PO Intake: Improving; tolerating breakfast Saw/examined the patient in room 240-1 He states he's doing fine He tolerated his breakfast Slightly confused, hard of hearing He denies significant shortness of breath today +weakness persists Problem List Medical Problems: (1) CHF (congestive heart failure) Status: Acute (2) Congestive heart failure Status: Acute (3) Hypoxia Status: Acute (4) Lower extremity edema Status: Acute (5) Pulmonary edema Status: Acute Review of Systems Constitutional: + weakness, + fatigue, + problem reported (decreased appetite) , No fever, No chills Respiratory: + cough, + sputum, + shortness of breath, + dyspnea on exertion, No wheezing, No dyspnea at rest, No hemoptysis Cardiac: + edema, No chest pain, No palpitations Abdomen: No pain, No nausea, No vomiting, No diarrhea, No constipation, No GI bleeding Heme: No abnormal bleeding/bruising Medications Current Inpatient Medications Medications (Trade) Dose Ordered Sig/Genoveva Route Start Time Stop Time Status Last Admin Dose Admin Acetaminophen (Tylenol Tab) 650 mg Q4H PRN PO 07/26/17 00:15 08/25/17 00:14 Magnesium Hydroxide (Milk Of Magnesia Susp) 30 ml Q12H PRN PO 07/26/17 00:15 08/25/17 00:14 Ondansetron HCl (Zofran Inj) 4 mg Q6H PRN IV 07/26/17 00:15 08/25/17 00:14 Nitroglycerin (Nitrostat Tab) 0.4 mg UD PRN SL 07/26/17 00:15 08/25/17 00:14 Polyethylene (Miralax Powder Packet) 17 gm DAILY PRN PO 07/26/17 00:15 08/25/17 00:14 Aspirin (Ecotrin Tab) 81 mg DAILY PO 07/26/17 09:00 08/25/17 08:59 07/26/17 08:26 81 MG Metoprolol Succinate (Toprol Xl Tab) 50 mg DAILY PO 07/26/17 09:00 08/25/17 08:59 07/26/17 08:26 50 MG Pantoprazole Sodium (Protonix Tab) 40 mg DAILY PO 07/26/17 09:00 08/25/17 08:59 07/26/17 08:26 40 MG Dextrose/Sodium Chloride 1,000 ml @ 30 mls/hr Q24H IV 07/26/17 00:15 08/25/17 00:14 07/26/17 02:51 30 MLS/HR Magnesium Oxide (Mag-Ox Tab) 400 mg DAILY PO 07/26/17 09:00 08/25/17 08:59 07/26/17 10:00 400 MG Ceftriaxone Sodium 1 gm/ Dextrose 50 ml @ 100 mls/hr Q24H IV 07/26/17 02:00 08/02/17 01:59 07/26/17 02:53 100 MLS/HR Doxycycline Hyclate 100 mg/ Dextrose 110 ml @ 50 mls/hr Q12H IV 07/26/17 04:00 08/02/17 03:59 07/26/17 03:47 50 MLS/HR Objective Vital Signs Date Time Temp Pulse Resp B/P (MAP) Pulse Ox O2 Delivery O2 Flow Rate FiO2 07/26/17 07:44 36.4 77 18 98/63 (75) 91 Room Air 07/26/17 04:00 Room Air 07/26/17 03:41 36.3 81 22 112/68 (83) 95 Room Air 07/26/17 01:52 36.4 84 18 114/73 99 Room Air 07/26/17 00:45 83 20 97 07/26/17 00:01 112/81 07/26/17 00:00 87 20 95 07/25/17 23:10 95 20 97 Room Air 07/25/17 23:01 117/77 07/25/17 22:50 92 20 95 07/25/17 22:26 77 16 95 Room Air 07/25/17 21:58 96 Room Air 07/25/17 21:52 80 07/25/17 21:47 81 20 92/53 100 Room Air 07/25/17 21:28 37.2 83 16 92/53 98 Room Air Physical Exam General Appearance: no apparent distress, + pertinent finding ENT: + pertinent finding (+hard of hearing) Respiratory/Chest: no respiratory distress, no accessory muscle use, + decreased breath sounds, + pertinent finding (+pacemaker on L chest wall) Cardiovascular: regular rate, rhythm, + JVD Abdomen: non tender, soft Extremities: + pedal edema, + swelling, + pertinent finding (+2-3 pitting edema b/l LE) Neurologic/Psychiatric: + disoriented, + pertinent finding Skin: + jaundice Laboratory Results Last 24 Hours Test 07/25/17 21:45 07/25/17 22:02 07/25/17 22:05 07/25/17 22:06 White Blood Count 7.45 K/uL Red Blood Count 4.32 M/uL Hemoglobin 14.0 g/dL Hematocrit 40.1 % Mean Corpuscular Volume 92.8 fL Mean Corpuscular Hemoglobin 32.4 pg Mean Corpuscular Hemoglobin Concent 34.9 g/dl Platelet Count 242 K/uL Mean Platelet Volume 9.7 fL Neutrophils (%) (Auto) 86.8 % Lymphocytes (%) (Auto) 7.9 % Monocytes (%) (Auto) 5.0 % Eosinophils (%) (Auto) 0.0 % Basophils (%) (Auto) 0.0 % Neutrophils # (Auto) 6.47 K/uL Lymphocytes # (Auto) 0.59 K/uL Monocytes # (Auto) 0.37 K/uL Eosinophils # (Auto) 0.00 K/uL Basophils # (Auto) 0.00 K/uL RDW Standard Deviation 64.8 fL RDW Coefficient of Variation 19.2 % Immature Granulocyte % (Auto) 0.3 % Immature Granulocyte # (Auto) 0.02 K/uL Sodium Level 125 mmol/L Potassium Level mmol/L Chloride Level 88 mmol/L Carbon Dioxide Level 19 mmol/L Anion Gap 18.0 mmol/L 21.0 mmol/L Blood Urea Nitrogen 45 mg/dl Creatinine 2.78 mg/dl Est Creatinine Clear Calc Drug Dose 18.2 ml/min Estimated GFR () 23.3 Estimated GFR (Non- 20.1 BUN/Creatinine Ratio 16.2 Random Glucose 45 mg/dl Calcium Level 9.3 mg/dl Phosphorus Level 5.4 mg/dl Magnesium Level mg/dl Total Bilirubin 7.7 mg/dl Direct Bilirubin mg/dl Aspartate Amino Transf (AST/SGOT) U/L Alanine Aminotransferase (ALT/SGPT) 31 U/L Alkaline Phosphatase 139 U/L Pro-B-Type Natriuretic Peptide > 58610 pg/ml Total Protein 7.5 gm/dl Albumin 3.0 gm/dl Lipase 95 U/L Thyroid Stimulating Hormone (TSH) 3.060 uIu/ml Bedside Lactic Acid Venous 6.22 mmol/L Bedside Troponin I 0.040 ng/ml Bedside Hemoglobin 15.6 g/dl Bedside Hematocrit 46 % Bedside Sodium 125 mEq/L Bedside Potassium 6.3 mEq/L Bedside Chloride 89 mEq/L Bedside Total CO2 22 mEq/l Bedside Blood Urea Nitrogen 61 mg/dl Bedside Creatinine 2.7 mg/dl Bedside Glucose (other) 47 mg/dl Bedside Ionized Calcium (Blanca) 0.88 mmol/l Test 07/25/17 23:09 07/25/17 23:49 07/26/17 00:26 07/26/17 01:35 Prothrombin Time 22.5 SECONDS Prothromb Time International Ratio 2.2 Activated Partial Thromboplast Time 33.0 SECONDS Partial Thromboplastin Ratio 1.3 Potassium Level 5.1 mmol/L 4.8 mmol/L Magnesium Level 2.0 mg/dl Direct Bilirubin 5.8 mg/dl Aspartate Amino Transf (AST/SGOT) 42 U/L Lactic Acid Level 4.7 mmol/L Sodium Level 125 mmol/L Chloride Level 90 mmol/L Carbon Dioxide Level 22 mmol/L Anion Gap 13.0 mmol/L Blood Urea Nitrogen 45 mg/dl Creatinine 2.74 mg/dl Est Creatinine Clear Calc Drug Dose 18.5 ml/min Estimated GFR () 23.7 Estimated GFR (Non- 20.5 BUN/Creatinine Ratio 16.5 Random Glucose 145 mg/dl Calcium Level 9.5 mg/dl Chemistry Specimen Hemolysis Bedside Glucose 129 mg/dl Test 07/26/17 05:58 07/26/17 06:59 Sodium Level 124 mmol/L Potassium Level 4.8 mmol/L Chloride Level 90 mmol/L Carbon Dioxide Level 21 mmol/L Anion Gap 14.0 mmol/L Blood Urea Nitrogen 46 mg/dl Creatinine 2.72 mg/dl Est Creatinine Clear Calc Drug Dose 19.2 ml/min Estimated GFR () 24.0 Estimated GFR (Non- 20.7 BUN/Creatinine Ratio 17.0 Random Glucose 202 mg/dl Lactic Acid Level 2.9 mmol/L Calcium Level 8.9 mg/dl Magnesium Level 1.8 mg/dl Total Bilirubin 6.3 mg/dl Direct Bilirubin 5.1 mg/dl Aspartate Amino Transf (AST/SGOT) 43 U/L Alanine Aminotransferase (ALT/SGPT) 29 U/L Alkaline Phosphatase 129 U/L Troponin I 0.033 ng/ml Total Protein 6.6 gm/dl Albumin 2.6 gm/dl Bedside Glucose 192 mg/dl Assessment and Plan This is an 81 year old male with a past medical history of severe mitral valve regurgitation s/p mitral valve repair, severe cardiomyopathy/biventricular systolic CHF, EF ~ 15% s/p AICD, 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, paroxysmal atrial fibrillation no longer an anticoagulation candidate, paroxysmal SVTs/PVCs, HTN, HLD, CKD stage 3 - presents with generalized weakness, shortness of breath, decreased appetite and subsequently found to have hyperkalemia, acute kidney injury/hyponatremia/dehydration, hypoglycemia Hyponatremia/Dehydration Acute Kidney Injury superimposed on CKD stage 3 - likely progression of kidney failure - currently creatinine is 2.7; gentle hydration - will continue gentle hydration for 24 hours and then stop - fluid restriction for hyponatremia - will likely need to restart diuretics in 1-2 days Multiorgan Failure Biventricular Systolic CHF, EF ~15% s/p AICD Liver Failure/Congestive Hepatopathy - patient with heart failure, liver failure, kidney failure - multiorgan damage - currently he is third spacing, fluid retention in the lower extremities; pulmonary/hepatic congestion - decreased appetite, hyponatremia, kidney injury - likely due to decreased intravascular volume - gentle IV hydration, then diuretics for the heart failure - liver failure - chronic; elevated total bilirubin, elevated INR - consulted palliative care - spoke with about code status; leaning towards DNR; will speak with son as well - patient with mild confusion, unable to discuss in full regarding code status - due to multiorgan failure - hospice should be considered Generalized Weakness/Decreased Appetite Mild Metabolic Encephalopathy secondary to Pneumonia - patient presents with shortness of breath/cough - CXR was repeated this AM on 07/26 - LLL opacity, likely pneumonia - will treat with Rocephin/Doxycycline - mild confusion this AM, but improving; PO intake slight improvement - generalized weakness persists Hypoglycemia - secondary to lack of appetite - giving D5NS - PO intake improving Paroxysmal A. Fib - currently in normal rhythm, rate is controlled - not an anticoagulation candidate - INR is >2 due to hepatic coagulopathy DVT ppx - SCDs, INR >2 Full Code - discussed code status; palliative care consulted for goals of care, code status, and possible hospice at home
--- NOTE | 2017-07-26 11:34 | Cardiology Consultation ---
Cardiology Consultation Date of Service Jul 26, 2017. (Ira Colby, NICHOLE) Cardiology Consultation Requesting Physician: Dr. Marinelli Attending Semi Conductor Assembler: Dr. Resendez SUBJECTIVE: Newton Huizar is an 81 year old male with a complex history including end stage biventricular heart failure, LVEF 15%, history of mitral valve repair with at least mild stenosis per last echo, severe TR, dilated RV, history of PAF no longer on anticoagulation due to falls/non compliance, underlying conduction system disease with prolonged QT, dual chamber pacemaker implant in 2014 with AICD, failed BiV due to persistent left sided IVC at that time. He was admitted earlier this year for acute decompensated HF, symptoms improved with IV diuretics. He has been followed closely as an outpatient with [facility]. Recently due to symptoms of acute CHF exacerbation with weight gain , LE edema, abdominal bloating noted, spironolactone was resumed (low dose) with reduction in potassium. F/U labs demonstrated stable renal function/ electrolytes. He was also noted to have significantly elevated bilirubin at 7.[address] which demonstrated fatty liver, no obvious obstruction. He is to have GI consultation next week for further evaluation. Patient presented to [place] yesterday with complaints of 1 week of lack of appetite , weakness, dizziness, SOB. Work up in ER demonstrated NAM with hyperkalemia, hyponatremia. Persistent elevated LFT's and bilirubin noted. Chest xray consistent wiht lower lobe infiltrate, possible pneumonia. he was started on antibiotic therapy. Started on IV fluids, diuretics on hold. Wide QRS rhythm on initial EKG, consistent with possible Sinus and RBBB vs idioventricular rhythm. Cardiac enzymes negative. Stable edema reported. Patient offers no complaints at time of consult. Full ROS unreliable. Patient ? confused. Tells me "he doesn't have anything wrong with his heart". Reports "he feels fine". Nephrology consulted. Review of Systems: Unreliable PMH/Problem List: 1. Severe mitral regurgitation secondary to a flail P2 status post May 26, 2012 mitral valve repair with triangular resection of P2 and placement of a 29 mm [place] [facility] [place]. Patent foramen ovale status post primary closure at the time of mitral valve repair in 2012 3. 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 4. Nonobstructive CAD with 30-40% left main taper per catheterization in 2011 . 5. Severe cardiomyopathy, EF 15%, right greater than left biventricular heart failure, congestive hepatopathy with resultant coagulopathy. 6. Paroxysmal atrial fibrillation, deemed to no longer be an anticoagulation candidate in May 2017. 7. [id number] 4 8. Frequent PVC's and paroxysmal VT 9. 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 10. Status post June 2014 dual chamber pacemaker and defibrillator. 11. No BiV due to persistent left sided IVC 12. Hypertension 13. Dyslipidemia. 14. Osteoarthritis 15. elevated Bilirubin - has upcoming GI appt Surgical Problems: 1. Hx of mitral valve repair in 2012 2. Dual chamber pacemaker and defib implant 2014 3. Closure of PFO in 2012 Family History: Non contributory Social History Substance Use Topics Smoking status: Former Smoker Packs/day: 2.00 Years: 10.00 Types: Cigarettes Quit date: 07/21/1971 Smokeless tobacco: Never Used Alcohol use No Comment: occ Review of patient's allergies indicates: No Known Allergies Reported Home Medications Medications Dose Route/Sig Max Daily Dose Days Date Category Dose Instructions Magnesium Oxide 400 Mg Cap 1 Cap PO DAILY 30 07/26/17 Rx Spironolactone 25 Mg Tab 12.5 Mg PO DAILY 07/26/17 Rx Lasix (Furosemide) 40 Mg Tab 40 Mg PO BID 07/26/17 Rx Klor-Con M20 (Potassium Chloride) 20 Meq Tabcr 20 Meq PO QAM 05/31/17 Rx Metoprolol Succinate ER (Metoprolol Succinate) 50 Mg Tabcr 50 Mg PO DAILY 30 05/31/17 Rx Prilosec (Omeprazole) 20 Mg Capcr 20 Mg PO DAILY 06/22/14 Reported Amoxil (Amoxicillin) 500 Mg Cap 2,000 Mg PO DIRECTED 08/08/12 Reported take prior to dental procedures Ecotrin Or Generic (Aspirin) 81 Mg Tab 81 Mg PO DAILY 01/31/12 Reported OBJECTIVE/PHYSICAL EXAMINATION: Last 8 Hrs Date Time Temp Pulse Resp B/P (MAP) Pulse Ox O2 Delivery O2 Flow Rate FiO2 07/26/17 07:44 36.4 77 18 98/63 (75) 91 Room Air 07/26/17 04:00 Room Air 07/26/17 03:41 36.3 81 22 112/68 (83) 95 Room Air 07/26/17 01:52 36.4 84 18 114/73 99 Room Air 07/26/17 00:45 83 20 97 General: A&O to person and place. Jaundiced appearing. [place]. NAD. HEENT: Normocephalic. Atraumatic. Conjunctiva pink, scleral pale Neck: No carotid bruits. +JVD in the upright position Heart: Regular Grade II/ systolic ejection murmur. . Lungs: Diminished but clear. Abdomen: Somewhat distended. Somewhat firm. Hepatomegaly. Nontender. Extremities: 2+ edema to the mid [place]. No clubbing. No cyanosis. Pulses: radial=2/4, posterior tibial=2/4. Neuro: No focal deficits. Data: EKG Regular Wide QRS rhythm, with prolonged QT. Sinus wiht RBBB vs idioventricular rhythm. Telemetry: Possible sinus with conduction delay. No tachyarrhythmias. Chest xray on admission IMPRESSION: Potential small parenchymal infiltrate medial left base. Labs: Last 24 Hours Test 07/25/17 21:45 07/25/17 22:02 07/25/17 22:05 07/25/17 22:06 White Blood Count 7.45 K/uL Red Blood Count 4.32 M/uL Hemoglobin 14.0 g/dL Hematocrit 40.1 % Mean Corpuscular Volume 92.8 fL Mean Corpuscular Hemoglobin 32.4 pg Mean Corpuscular Hemoglobin Concent 34.9 g/dl Platelet Count 242 K/uL Mean Platelet Volume 9.7 fL Neutrophils (%) (Auto) 86.8 % Lymphocytes (%) (Auto) 7.9 % Monocytes (%) (Auto) 5.0 % Eosinophils (%) (Auto) 0.0 % Basophils (%) (Auto) 0.0 % Neutrophils # (Auto) 6.47 K/uL Lymphocytes # (Auto) 0.59 K/uL Monocytes # (Auto) 0.37 K/uL Eosinophils # (Auto) 0.00 K/uL Basophils # (Auto) 0.00 K/uL RDW Standard Deviation 64.8 fL RDW Coefficient of Variation 19.2 % Immature Granulocyte % (Auto) 0.3 % Immature Granulocyte # (Auto) 0.02 K/uL Sodium Level 125 mmol/L Potassium Level mmol/L Chloride Level 88 mmol/L Carbon Dioxide Level 19 mmol/L Anion Gap 18.0 mmol/L 21.0 mmol/L Blood Urea Nitrogen 45 mg/dl Creatinine 2.78 mg/dl Est Creatinine Clear Calc Drug Dose 18.2 ml/min Estimated GFR () 23.3 Estimated GFR (Non- 20.1 BUN/Creatinine Ratio 16.2 Random Glucose 45 mg/dl Calcium Level 9.3 mg/dl Phosphorus Level 5.4 mg/dl Magnesium Level mg/dl Total Bilirubin 7.7 mg/dl Direct Bilirubin mg/dl Aspartate Amino Transf (AST/SGOT) U/L Alanine Aminotransferase (ALT/SGPT) 31 U/L Alkaline Phosphatase 139 U/L Pro-B-Type Natriuretic Peptide > 14697 pg/ml Total Protein 7.5 gm/dl Albumin 3.0 gm/dl Lipase 95 U/L Thyroid Stimulating Hormone (TSH) 3.060 uIu/ml Bedside Lactic Acid Venous 6.22 mmol/L Bedside Troponin I 0.040 ng/ml Bedside Hemoglobin 15.6 g/dl Bedside Hematocrit 46 % Bedside Sodium 125 mEq/L Bedside Potassium 6.3 mEq/L Bedside Chloride 89 mEq/L Bedside Total CO2 22 mEq/l Bedside Blood Urea Nitrogen 61 mg/dl Bedside Creatinine 2.7 mg/dl Bedside Glucose (other) 47 mg/dl Bedside Ionized Calcium (Blanca) 0.88 mmol/l Test 07/25/17 23:09 07/25/17 23:49 07/26/17 00:26 07/26/17 01:35 Prothrombin Time 22.5 SECONDS Prothromb Time International Ratio 2.2 Activated Partial Thromboplast Time 33.0 SECONDS Partial Thromboplastin Ratio 1.3 Potassium Level 5.1 mmol/L 4.8 mmol/L Magnesium Level 2.0 mg/dl Direct Bilirubin 5.8 mg/dl Aspartate Amino Transf (AST/SGOT) 42 U/L Lactic Acid Level 4.7 mmol/L Sodium Level 125 mmol/L Chloride Level 90 mmol/L Carbon Dioxide Level 22 mmol/L Anion Gap 13.0 mmol/L Blood Urea Nitrogen 45 mg/dl Creatinine 2.74 mg/dl Est Creatinine Clear Calc Drug Dose 18.5 ml/min Estimated GFR () 23.7 Estimated GFR (Non- 20.5 BUN/Creatinine Ratio 16.5 Random Glucose 145 mg/dl Calcium Level 9.5 mg/dl Chemistry Specimen Hemolysis Bedside Glucose 129 mg/dl Test 07/26/17 05:58 07/26/17 06:59 Sodium Level 124 mmol/L Potassium Level 4.8 mmol/L Chloride Level 90 mmol/L Carbon Dioxide Level 21 mmol/L Anion Gap 14.0 mmol/L Blood Urea Nitrogen 46 mg/dl Creatinine 2.72 mg/dl Est Creatinine Clear Calc Drug Dose 19.2 ml/min Estimated GFR () 24.0 Estimated GFR (Non- 20.7 BUN/Creatinine Ratio 17.0 Random Glucose 202 mg/dl Lactic Acid Level 2.9 mmol/L Calcium Level 8.9 mg/dl Magnesium Level 1.8 mg/dl Total Bilirubin 6.3 mg/dl Direct Bilirubin 5.1 mg/dl Aspartate Amino Transf (AST/SGOT) 43 U/L Alanine Aminotransferase (ALT/SGPT) 29 U/L Alkaline Phosphatase 129 U/L Troponin I 0.033 ng/ml Total Protein 6.6 gm/dl Albumin 2.6 gm/dl Bedside Glucose 192 mg/dl Prior Data: Liver CT reviewed, as outpatient: IMPRESSION 1. Slightly decreased liver attenuation suggesting steatosis/hepatitis. 2. No biliary dilation. 3. Mild to moderate ascites. Trace pleural effusions. 4. Additional findings as described above. May 24, 2017 TTE Interpretation Summary ([facility], as per Dr. Joseph): The left ventricle is normal in size. There is normal left ventricular wall thickness. There is severe global hypokinesis of the left ventricle. Septal motion is consistent with conduction abnormality. Ejection Fraction = 15-20%. The left atrium is mildly dilated. The right atrium is mild to moderately dilated. The right ventricular systolic function is mildly reduced. An annuloplasty ring is noted in the mitral position. The mitral valve leaflets are thickened and restricted in mobility. At least mild mitral stenosis is suspected. There is moderate to severe tricuspid regurgitation. Right ventricular systolic pressure is elevated at 40-50mmHg. Device interrogation on 06/17/2017 revealed appropriate function. Estimated remaining longevity: 7.6 years. Lower rate 50 bpm. Time in AT/AF: < 0.1%. -VS 99.6%. AP-VS 0.4%. ASSESSMENT: 81 year old male 1. NAM with hyperkalemia, hyponatremia. 2. Left lower lobe pneumonia. 2. Chronic end stage biventricular heart failure, LVEF 15% wiht resultant hepatic congestion 3. History of PAF, paroxysmal VT - currently appears NSR with wide QRS vs idioventricular rhythm. not anticoagulation candidate 4. Dual chamber pacemaker/ICD, failed BIV device due to persistent left sided IVC. 5. History of medication non compliance 6. History of mitral valve repair in 2013, now with mild MS PLAN: antibiotics per hospitalist for pneumonia. Appreciate nephrology consult. He does have signs of volume overload on exam, but appears intervascular dry and with NAM/hyperkalemia. Discussed with nephrology. Gentle fluids for 24 hours. Fluid restriction to aid with hyponatremia. Diuretics currently on hold, likely need to be resumed in near future. Unfortunately this may result in worsening of chronic kidney disease/NAM. No potassium supplements. Given multiorgan failure, agree with palliative care consult, and re-addressing code status. No family present at time of consult. Patient has poor insight as to his medical problems. Case to be discussed wiht Dr. Resendez. will follow. (Ira Colby, PA-C) Cardiology Attending Physician: Patient seen and examined at the bedside. Patient is or what correct. Lower extremity edema noted. Complains of dyspnea on exertion and cough. Chest x- ray suggest possible pneumonia. Initial evaluation demonstrates acute renal failure, passive liver congestion, and electrolyte derangement. Bladder scan showing 500 cc of retained urine. Salas catheter recommended however patient declining at this time. Denies chest pain or palpitations. ECG and telemetry demonstrate sinus rhythm with a long first-degree AV block and a right bundle branch block. Patient does not recall if edema worsening. Denies palpitations , lightheadedness, dizziness, syncope, or near syncope. PE: VSS. GEN: NAD, chronically ill, jaundiced. Heart: Regular, normal S1, S2, no murmur appreciated. Lungs: Diminished breath sounds at the bases bilaterally. No wheeze, rhonchi, or rales. Abdomen: Mildly distended, normal bowel sounds. No rebound or guarding. Extremities: +2 bilateral pretibial edema. A/P: Agree with above PABebetoC history, physical exam, assessment and plan with the following additions. Patient with signs/symptoms of volume overload, acute renal insufficiency, electrolyte derangement, and hepatic congestion. Strongly recommend Salas catheter due to urine retention. Patient agreeable to catheter will consider low-dose dobutamine infusion to augment cardiac output short- term. Pro arrhythmic risks noted. ICD will be interrogated for clarification of underlying rhythm. Overall prognosis is poor. Agree with palliative care evaluation at this time. Scott Resendez DO, FACC (Haim Resendez, )
[2017-07-26] MEDS ORDERED: LIDOCAINE HCL 2% JELLY 30 ML TUBE EXT ONE (13:10)
[2017-07-26] MEDS ORDERED: NURSING VERBAL MED ORDER ONE (13:30)
[2017-07-26] MEDS ORDERED: DOBUTamine / D5W 500 MG IV SCH (14:00)
[2017-07-26] MEDS: DOBUTamine 500MG / 250ML D5W ONE ×2 (14:28→14:32)
[2017-07-26] MEDS ORDERED: DEXTROSE 50% 50 ML SYR IV PRN (18:00)
[2017-07-26] MEDS ORDERED: GLUCAGON FOR INJ 1 MG VIAL SQ PRN (18:00)
[2017-07-26] MEDS ORDERED: GLUCOSE 40% GEL 15 GM TUBE PO PRN (18:00)
[2017-07-26] MEDS ORDERED: GLUCOSE 10 TABS/TUBE PO PRN (18:00)
[2017-07-26] MEDS: INSULIN ASPART 100 UNITS/ML 3 ML PEN SC SCH (21:59)
[2017-07-27] MEDS: CEFTRIAXONE SOD INJ 1 GM in DEXTROSE 5% ADD-VANTAGE 50ML 50 ML IV SCH (02:00)
[2017-07-27 03:48] VITALS: BP 91/64; PULSE 71; TEMP 35.8; O2SAT 94
[2017-07-27] MEDS: DOXYCYCLINE IV 100 MG in DEXTROSE 5% 100ML 100 ML IV SCH (04:23)
[2017-07-27 06:56] LABS: EOS % 0.3 %; EOS ABS # 0.02 K/uL (0-0.5); HEMATOCRIT 36.7 % (42-52); HEMOGLOBIN 12.4 g/dL (14.0-18.0); IG# 0.02 K/uL (0.00-0.02); LYMPH % 8.1 %; LYMPH ABS # 0.52 K/uL (1.2-3.4); MEAN CELL VOLUME 91.5 fL (80-100); MEAN CORPUSCULAR HEMOGLOBIN 30.9 pg (25-34); MEAN CORPUSCULAR HGB CONC 33.8 g/dl (32-36); MEAN PLATELET VOLUME 10.1 fL (7.4-10.4); MONO % 7.7 %; MONO ABS # 0.49 K/uL (0.11-0.59); NEUT % 83.6 %; NEUT ABS # 5.34 K/uL (1.4-6.5); PLATELET COUNT 180 K/uL (130-400); RED CELL DISTRIBUTION WIDTH CV 19.3 % (11.5-14.5); RED CELL DISTRIBUTION WIDTH SD 64.5 fL (36.4-46.3); WHITE BLOOD COUNT 6.39 K/uL (4.8-10.8)
[2017-07-27 07:36] LABS: CALCIUM 8.8 mg/dl (8.5-10.1); CREATININE 2.73 mg/dl (0.60-1.40); POTASSIUM 4.7 mmol/L (3.5-5.1)
[2017-07-27] MEDS: MAGNESIUM OXIDE 400 MG TAB PO SCH (08:03)
[2017-07-27] MEDS: ASPIRIN 81 MG ECTAB PO SCH (08:04)
[2017-07-27] MEDS: METOPROLOL SUCC 50MG EXT REL TAB PO SCH (08:04)
[2017-07-27] MEDS: PANTOprazole SOD 40 MG TAB PO SCH (08:04)
[2017-07-27] MEDS: INSULIN ASPART 100 UNITS/ML 3 ML PEN SC SCH ×2 (08:08→12:36)
[2017-07-27 08:10] VITALS: O2SAT 94
[2017-07-27 08:14] VITALS: BP 99/63; PULSE 72; TEMP 36.6; O2SAT 96
--- NOTE | 2017-07-27 09:02 | Progress Note ---
Subjective Date of Service: Jul 27, 2017. Subjective Pt evaluation today including: conversation w/ patient, physical exam, lab review, review of studies, review of inpatient medication list Saw/examined the patient in room 243 He's doing okay, seated at bedside eating breakfast States he's getting confused on what day it is; thinking it's Saturday He is asking to be discharged and considering signing out against medical advice I let him know about the severity of his disease and he agreed to stay No shortness of breath/chest pain/palpitations +abdominal distention Problem List Medical Problems: (1) CHF (congestive heart failure) Status: Acute (2) Congestive heart failure Status: Acute (3) Hypoxia Status: Acute (4) Lower extremity edema Status: Acute (5) Pulmonary edema Status: Acute Review of Systems Constitutional: + weakness, No fever, No chills Respiratory: No cough, No sputum, No wheezing, No shortness of breath, No dyspnea on exertion Cardiac: + edema, No chest pain, No palpitations Abdomen: No pain, No nausea, No vomiting, No diarrhea, No constipation, No GI bleeding Heme: No abnormal bleeding/bruising Objective Vital Signs Date Time Temp Pulse Resp B/P (MAP) Pulse Ox O2 Delivery O2 Flow Rate FiO2 07/27/17 08:14 36.6 72 18 99/63 (75) 96 07/27/17 04:00 Nasal Cannula 2.0 98 07/27/17 03:48 35.8 71 18 91/64 (73) 94 Room Air 07/27/17 00:00 Nasal Cannula 2.0 98 07/26/17 23:43 69 17 94/62 (73) 95 Room Air 07/26/17 23:30 36.0 07/26/17 20:00 Nasal Cannula 2.0 98 07/26/17 19:29 36.5 74 20 93/59 (70) 94 07/26/17 17:17 36.5 79 20 90/60 (70) 99 Room Air 07/26/17 16:47 36.4 80 20 101/66 (78) 94 Room Air 07/26/17 16:17 36.4 81 20 /101 (68) 94 Room Air 07/26/17 16:05 Room Air 07/26/17 15:47 36.4 82 20 106/69 (81) 94 Room Air 07/26/17 15:17 36.4 84 20 105/69 (81) 94 Room Air 07/26/17 15:15 36.3 84 20 105/69 (81) 94 Room Air 07/26/17 15:11 83 107/72 (84) 07/26/17 14:56 83 97/60 (72) 07/26/17 14:45 83 94/64 (74) 07/26/17 14:25 86 95/67 (76) 07/26/17 11:30 36.4 85 20 105/71 (82) 96 Room Air 07/26/17 11:24 Room Air Physical Exam General Appearance: no apparent distress, + pertinent finding (+jaundiced) Respiratory/Chest: no respiratory distress, no accessory muscle use, + decreased breath sounds Cardiovascular: regular rate, rhythm, no murmur Abdomen: non tender, soft, + distended Extremities: + pedal edema, + swelling (+2-3 pitting edema), + pertinent finding Neurologic/Psychiatric: + motor weakness, + disoriented Skin: + jaundice Laboratory Results Last 24 Hours Test 07/26/17 13:20 07/26/17 16:27 07/26/17 21:17 07/27/17 06:35 Urine Color ANUJA Urine Appearance SL CLOUDY Urine pH 5.0 Urine Specific [place] 1.016 Urine Protein 1+ Urine Glucose (UA) TRACE Urine Ketones TRACE Urine Occult Blood 3+ Urine Nitrite NEG Urine Bilirubin 2+ Urine Urobilinogen POS Urine Leukocyte Esterase NEG Urine RBC >30 /hpf Urine WBC 1-5 /hpf Urine Epithelial Cells 10-20 /lpf Urine Renal Cells 5-10 /lpf Urine Calcium Oxalate Crystals PRESENT Urine Bacteria 1+ Urine Hyaline Casts 5-10 /lpf Urine Granular Casts 0-3 /lpf Bedside Glucose 230 mg/dl 248 mg/dl White Blood Count 6.39 K/uL Red Blood Count 4.01 M/uL Hemoglobin 12.4 g/dL Hematocrit 36.7 % Mean Corpuscular Volume 91.5 fL Mean Corpuscular Hemoglobin 30.9 pg Mean Corpuscular Hemoglobin Concent 33.8 g/dl Platelet Count 180 K/uL Mean Platelet Volume 10.1 fL Neutrophils (%) (Auto) 83.6 % Lymphocytes (%) (Auto) 8.1 % Monocytes (%) (Auto) 7.7 % Eosinophils (%) (Auto) 0.3 % Basophils (%) (Auto) 0.0 % Neutrophils # (Auto) 5.34 K/uL Lymphocytes # (Auto) 0.52 K/uL Monocytes # (Auto) 0.49 K/uL Eosinophils # (Auto) 0.02 K/uL Basophils # (Auto) 0.00 K/uL RDW Standard Deviation 64.5 fL RDW Coefficient of Variation 19.3 % Immature Granulocyte % (Auto) 0.3 % Immature Granulocyte # (Auto) 0.02 K/uL Sodium Level 125 mmol/L Potassium Level 4.7 mmol/L Chloride Level 90 mmol/L Carbon Dioxide Level 26 mmol/L Anion Gap 9.0 mmol/L Blood Urea Nitrogen 46 mg/dl Creatinine 2.73 mg/dl Est Creatinine Clear Calc Drug Dose 20.1 ml/min Estimated GFR () 23.8 Estimated GFR (Non- 20.6 BUN/Creatinine Ratio 16.7 Random Glucose 144 mg/dl Calcium Level 8.8 mg/dl Magnesium Level 1.9 mg/dl Test 07/27/17 07:23 Bedside Glucose 157 mg/dl Assessment and Plan This is an 81 year old male with a past medical history of severe mitral valve regurgitation s/p mitral valve repair, severe cardiomyopathy/biventricular systolic CHF, EF ~ 15% s/p AICD, 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, paroxysmal atrial fibrillation no longer an anticoagulation candidate, paroxysmal SVTs/PVCs, HTN, HLD, CKD stage 3 - presents with generalized weakness, shortness of breath, decreased appetite and subsequently found to have hyperkalemia, acute kidney injury/hyponatremia/dehydration, hypoglycemia Hyponatremia/Dehydration Acute Kidney Injury superimposed on CKD stage 3 07/27 - currently still receiving fluids, but difficult situation with worsening creatinine - may need diuretics - palliative care consult for goals of care, code status, etc. 07/26 - likely progression of kidney failure - currently creatinine is 2.7; gentle hydration - will continue gentle hydration for 24 hours and then stop - fluid restriction for hyponatremia - will likely need to restart diuretics in 1-2 days Multiorgan Failure Biventricular Systolic CHF, EF ~15% s/p AICD Liver Failure/Congestive Hepatopathy 07/27 - appreciate cardiology input - currently on Dobutamine - likely cardiorenal; may need diuretics, appreciate nephrology and cardiology input 07/26 - patient with heart failure, liver failure, kidney failure - multiorgan damage - currently he is third spacing, fluid retention in the lower extremities; pulmonary/hepatic congestion - decreased appetite, hyponatremia, kidney injury - likely due to decreased intravascular volume - gentle IV hydration, then diuretics for the heart failure - liver failure - chronic; elevated total bilirubin, elevated INR - consulted palliative care - spoke with about code status; leaning towards DNR; will speak with son as well - patient with mild confusion, unable to discuss in full regarding code status - due to multiorgan failure - hospice should be considered Generalized Weakness/Decreased Appetite Mild Metabolic Encephalopathy secondary to Pneumonia - patient presents with shortness of breath/cough - CXR was repeated this AM on 07/26 - LLL opacity, likely pneumonia - will treat with Rocephin/Doxycycline - mild confusion this AM, but improving; PO intake slight improvement - generalized weakness persists Hypoglycemia - secondary to lack of appetite - giving D5NS - PO intake improving Paroxysmal A. Fib - currently in normal rhythm, rate is controlled - not an anticoagulation candidate - INR is >2 due to hepatic coagulopathy DVT ppx - SCDs, INR >2 Full Code - discussed code status; palliative care consulted for goals of care, code status, and possible hospice at home
--- NOTE | 2017-07-27 09:22 | Cardiology Follow-Up ---
Subjective Subjective Date of Service: Jul 27, 2017. 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 The patient was admitted with decompensated heart failure. He is in the end stages of his heart disease. Palliative care has seen the patient. Problem List Medical Problems: (1) CHF (congestive heart failure) Status: Acute (2) Congestive heart failure Status: Acute (3) Hypoxia Status: Acute (4) Lower extremity edema Status: Acute (5) Pulmonary edema Status: Acute Review of Systems Constitutional: + weakness, No fever, No chills Respiratory: No cough, No sputum, No wheezing, No shortness of breath, No dyspnea on exertion Cardiac: + edema, No chest pain, No palpitations Abdomen: No pain, No nausea, No vomiting, No diarrhea, No constipation, No GI bleeding Heme: No abnormal bleeding/bruising Objective Vital Signs Last Vital Signs Documentation Date Time Temp Pulse Resp B/P (MAP) Pulse Ox O2 Delivery O2 Flow Rate FiO2 07/27/17 08:14 36.6 72 18 99/63 (75) 96 07/27/17 04:00 Nasal Cannula 2.0 98 Physical Exam: General Appearance: no apparent distress, + pertinent finding (+jaundiced) ENT: normal ENT inspection, + pertinent finding (+hard of hearing) Neck: no adenopathy, thyroid normal, no carotid bruits Respiratory/Chest: no respiratory distress, no accessory muscle use, + decreased breath sounds Cardiovascular: regular rate, rhythm, no murmur Abdomen: non tender, soft, + distended Extremities: non-tender, no pedal edema, + pedal edema, + swelling (+2-3 pitting edema), + pertinent finding Neurologic/Psychiatric: no motor/sensory deficits, alert, + motor weakness, + disoriented Skin: normal color, no rash, + jaundice Lymphatic: no adenopathy Assessment and Plan Impression/recommendations: This is an elderly man in the end-stage of heart disease. His overall prognosis is poor. Further discussions planned for CODE STATUS and palliative care. Medications: Current Inpatient Medications Medications (Trade) Dose Ordered Sig/Genoveva Route Start Time Stop Time Status Last Admin Dose Admin Acetaminophen (Tylenol Tab) 650 mg Q4H PRN PO 07/26/17 00:15 08/25/17 00:14 Magnesium Hydroxide (Milk Of Magnesia Susp) 30 ml Q12H PRN PO 07/26/17 00:15 08/25/17 00:14 Ondansetron HCl (Zofran Inj) 4 mg Q6H PRN IV 07/26/17 00:15 08/25/17 00:14 Nitroglycerin (Nitrostat Tab) 0.4 mg UD PRN SL 07/26/17 00:15 08/25/17 00:14 Polyethylene (Miralax Powder Packet) 17 gm DAILY PRN PO 07/26/17 00:15 08/25/17 00:14 Aspirin (Ecotrin Tab) 81 mg DAILY PO 07/26/17 09:00 08/25/17 08:59 07/27/17 08:04 81 MG Metoprolol Succinate (Toprol Xl Tab) 50 mg DAILY PO 07/26/17 09:00 08/25/17 08:59 07/26/17 08:26 50 MG Pantoprazole Sodium (Protonix Tab) 40 mg DAILY PO 07/26/17 09:00 08/25/17 08:59 07/27/17 08:04 40 MG Dextrose/Sodium Chloride 1,000 ml @ 30 mls/hr Q24H IV 07/26/17 00:15 08/25/17 00:14 07/26/17 23:23 30 MLS/HR Magnesium Oxide (Mag-Ox Tab) 400 mg DAILY PO 07/26/17 09:00 08/25/17 08:59 07/27/17 08:03 400 MG Ceftriaxone Sodium 1 gm/ Dextrose 50 ml @ 100 mls/hr Q24H IV 07/26/17 02:00 08/02/17 01:59 07/27/17 02:00 100 MLS/HR Doxycycline Hyclate 100 mg/ Dextrose 110 ml @ 50 mls/hr Q12H IV 07/26/17 04:00 08/02/17 03:59 07/27/17 04:23 50 MLS/HR Dobutamine HCl 250 ml @ 0 mls/hr Q0M IV 07/26/17 14:00 08/25/17 13:59 Insulin Aspart (novoLOG ASPART) SLIDING SCALE If C... ACHS SC 07/26/17 21:00 08/25/17 20:59 07/27/17 08:08 2 UNITS Glucose (Glucose 40% Gel) 15-30 GRAMS 15 GRAMS... UD PRN PO 07/26/17 18:00 08/25/17 17:59 Glucose (Glucose Chew Tab) 4-8 Tablets 4 Tabl... UD PRN PO 07/26/17 18:00 08/25/17 17:59 Dextrose (Dextrose 50% 50ML Syringe) 25-50ML OF 50% DW IV FOR... UD PRN IV 07/26/17 18:00 08/25/17 17:59 Glucagon (Glucagon Inj) 1 mg UD PRN SQ 07/26/17 18:00 08/25/17 17:59 Lab Results: Last 24 Hours Test 07/26/17 13:20 07/26/17 16:27 07/26/17 21:17 07/27/17 06:35 Urine Color ANUJA Urine Appearance SL CLOUDY Urine pH 5.0 Urine Specific [place] 1.016 Urine Protein 1+ Urine Glucose (UA) TRACE Urine Ketones TRACE Urine Occult Blood 3+ Urine Nitrite NEG Urine Bilirubin 2+ Urine Urobilinogen POS Urine Leukocyte Esterase NEG Urine RBC >30 /hpf Urine WBC 1-5 /hpf Urine Epithelial Cells 10-20 /lpf Urine Renal Cells 5-10 /lpf Urine Calcium Oxalate Crystals PRESENT Urine Bacteria 1+ Urine Hyaline Casts 5-10 /lpf Urine Granular Casts 0-3 /lpf Bedside Glucose 230 mg/dl 248 mg/dl White Blood Count 6.39 K/uL Red Blood Count 4.01 M/uL Hemoglobin 12.4 g/dL Hematocrit 36.7 % Mean Corpuscular Volume 91.5 fL Mean Corpuscular Hemoglobin 30.9 pg Mean Corpuscular Hemoglobin Concent 33.8 g/dl Platelet Count 180 K/uL Mean Platelet Volume 10.1 fL Neutrophils (%) (Auto) 83.6 % Lymphocytes (%) (Auto) 8.1 % Monocytes (%) (Auto) 7.7 % Eosinophils (%) (Auto) 0.3 % Basophils (%) (Auto) 0.0 % Neutrophils # (Auto) 5.34 K/uL Lymphocytes # (Auto) 0.52 K/uL Monocytes # (Auto) 0.49 K/uL Eosinophils # (Auto) 0.02 K/uL Basophils # (Auto) 0.00 K/uL RDW Standard Deviation 64.5 fL RDW Coefficient of Variation 19.3 % Immature Granulocyte % (Auto) 0.3 % Immature Granulocyte # (Auto) 0.02 K/uL Sodium Level 125 mmol/L Potassium Level 4.7 mmol/L Chloride Level 90 mmol/L Carbon Dioxide Level 26 mmol/L Anion Gap 9.0 mmol/L Blood Urea Nitrogen 46 mg/dl Creatinine 2.73 mg/dl Est Creatinine Clear Calc Drug Dose 20.1 ml/min Estimated GFR () 23.8 Estimated GFR (Non- 20.6 BUN/Creatinine Ratio 16.7 Random Glucose 144 mg/dl Calcium Level 8.8 mg/dl Magnesium Level 1.9 mg/dl Test 07/27/17 07:23 Bedside Glucose 157 mg/dl
--- NOTE | 2017-07-27 12:08 | Progress Note ---
Progress Note Date of Service Jul 27, 2017. Progress Note Spoke with patient's and son who are in the room with the patient today. They are aware of his poor prognosis due to his heart failure, liver failure and kidney failure. We discussed code status and the family and patient agree that there should not be any resuscitation efforts. As per , she has had papers signed in the past suggesting he had a Do Not Resuscitate status. We further discussed goals of care and end of life care. They are in agreement ( including the patient) that further treatment goals should be geared towards symptomatic treatment. They would like to discuss hospice and move forward with comfort measures only at a facility. Patient's son, Rc, mentioned that he would hope that the patient can get to [facility] under hospice services. Case management consulted for further input and moving forward.
[2017-07-27 12:37] VITALS: BP 94/63; PULSE 76; TEMP 36.7; O2SAT 99
[2017-07-27 15:59] VITALS: BP 94/63; PULSE 76; TEMP 36.7; O2SAT 99
[2017-07-27 16:25] VITALS: O2SAT 99
[2017-07-28] MEDS: PANTOprazole SOD 40 MG TAB PO SCH (07:51)
--- NOTE | 2017-07-28 11:17 | Progress Note ---
Subjective Date of Service: Jul 28, 2017. Subjective Pt evaluation today including: conversation w/ patient, physical exam, lab review, review of studies, review of inpatient medication list Saw/examined the patient in room 461 Very weak today, states he cannot do much as he has lost interest Denies any pain anywhere, no breathing issues lack of appetite comfort measures only. Problem List Medical Problems: (1) CHF (congestive heart failure) Status: Acute (2) Congestive heart failure Status: Acute (3) Hypoxia Status: Acute (4) Lower extremity edema Status: Acute (5) Pulmonary edema Status: Acute Review of Systems Constitutional: + weakness, + fatigue, + problem reported (decreased appetite) Abdomen: No nausea, No vomiting, No diarrhea Musculoskeletal: No joint pain, No muscle pain Medications Current Inpatient Medications Medications (Trade) Dose Ordered Sig/Genoveva Route Start Time Stop Time Status Last Admin Dose Admin Acetaminophen (Tylenol Tab) 650 mg Q4H PRN PO 07/26/17 00:15 08/25/17 00:14 Magnesium Hydroxide (Milk Of Magnesia Susp) 30 ml Q12H PRN PO 07/26/17 00:15 08/25/17 00:14 Ondansetron HCl (Zofran Inj) 4 mg Q6H PRN IV 07/26/17 00:15 08/25/17 00:14 Nitroglycerin (Nitrostat Tab) 0.4 mg UD PRN SL 07/26/17 00:15 08/25/17 00:14 Polyethylene (Miralax Powder Packet) 17 gm DAILY PRN PO 07/26/17 00:15 08/25/17 00:14 Pantoprazole Sodium (Protonix Tab) 40 mg DAILY PO 07/26/17 09:00 08/25/17 08:59 07/28/17 07:51 40 MG Objective Vital Signs Date Time Temp Pulse Resp B/P (MAP) Pulse Ox O2 Delivery O2 Flow Rate FiO2 07/28/17 08:00 Room Air 07/27/17 23:59 Room Air 07/27/17 20:05 Room Air 07/27/17 16:25 99 Room Air 07/27/17 15:59 36.7 76 16 99 2.0 07/27/17 12:37 36.7 76 16 94/63 (73) 99 07/27/17 12:00 Nasal Cannula 2.0 Physical Exam General Appearance: no apparent distress, + pertinent finding (+weak, lethargic ) Respiratory/Chest: no respiratory distress, no accessory muscle use, + decreased breath sounds Abdomen: + distended Extremities: + pedal edema, + swelling Neurologic/Psychiatric: alert, normal mood/affect Skin: + jaundice Laboratory Results Last 24 Hours Test 07/27/17 11:14 Bedside Glucose 136 mg/dl Assessment and Plan This is an 81 year old male with a past medical history of severe mitral valve regurgitation s/p mitral valve repair, severe cardiomyopathy/biventricular systolic CHF, EF ~ 15% s/p AICD, 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, paroxysmal atrial fibrillation no longer an anticoagulation candidate, paroxysmal SVTs/PVCs, HTN, HLD, CKD stage 3 - presents with generalized weakness, shortness of breath, decreased appetite and subsequently found to have hyperkalemia, acute kidney injury/hyponatremia/dehydration, hypoglycemia 07/28 - patient is now comfort measures only status - plan to d/c to facility with hospice in AM (07/29) - currently seems comfortable - poor prognosis Hyponatremia/Dehydration Acute Kidney Injury superimposed on CKD stage 3 07/27 - currently still receiving fluids, but difficult situation with worsening creatinine - may need diuretics - palliative care consult for goals of care, code status, etc. 07/26 - likely progression of kidney failure - currently creatinine is 2.7; gentle hydration - will continue gentle hydration for 24 hours and then stop - fluid restriction for hyponatremia - will likely need to restart diuretics in 1-2 days Multiorgan Failure Biventricular Systolic CHF, EF ~15% s/p AICD Liver Failure/Congestive Hepatopathy 07/27 - appreciate cardiology input - currently on Dobutamine - likely cardiorenal; may need diuretics, appreciate nephrology and cardiology input 07/26 - patient with heart failure, liver failure, kidney failure - multiorgan damage - currently he is third spacing, fluid retention in the lower extremities; pulmonary/hepatic congestion - decreased appetite, hyponatremia, kidney injury - likely due to decreased intravascular volume - gentle IV hydration, then diuretics for the heart failure - liver failure - chronic; elevated total bilirubin, elevated INR - consulted palliative care - spoke with about code status; leaning towards DNR; will speak with son as well - patient with mild confusion, unable to discuss in full regarding code status - due to multiorgan failure - hospice should be considered Generalized Weakness/Decreased Appetite Mild Metabolic Encephalopathy secondary to Pneumonia - patient presents with shortness of breath/cough - CXR was repeated this AM on 07/26 - LLL opacity, likely pneumonia - will treat with Rocephin/Doxycycline - mild confusion this AM, but improving; PO intake slight improvement - generalized weakness persists Hypoglycemia - secondary to lack of appetite - giving D5NS - PO intake improving Paroxysmal A. Fib - currently in normal rhythm, rate is controlled - not an anticoagulation candidate - INR is >2 due to hepatic coagulopathy DVT ppx - SCDs, INR >2 Full Code - discussed code status; palliative care consulted for goals of care, code status, and possible hospice at home
[2017-07-29] MEDS: PANTOprazole SOD 40 MG TAB PO SCH (07:33)
--- NOTE | 2017-07-29 10:19 | Progress Note ---
Subjective Date of Service: Jul 29, 2017. Subjective Pt evaluation today including: conversation w/ patient, physical exam, lab review, review of studies, review of inpatient medication list Saw/examined the patient in room 461 No problems/issues today; denies any pain, denies shortness of breath +edema worsening Problem List Medical Problems: (1) CHF (congestive heart failure) Status: Acute (2) Congestive heart failure Status: Acute (3) Hypoxia Status: Acute (4) Lower extremity edema Status: Acute (5) Pulmonary edema Status: Acute Review of Systems Constitutional: + weakness, + fatigue, No fever, No chills Respiratory: No cough, No sputum, No wheezing, No shortness of breath, No dyspnea on exertion Cardiac: + edema, No chest pain Abdomen: No pain, No nausea, No vomiting, No diarrhea, No constipation, No GI bleeding Medications Current Inpatient Medications Medications (Trade) Dose Ordered Sig/Genoveva Route Start Time Stop Time Status Last Admin Dose Admin Acetaminophen (Tylenol Tab) 650 mg Q4H PRN PO 07/26/17 00:15 08/25/17 00:14 Magnesium Hydroxide (Milk Of Magnesia Susp) 30 ml Q12H PRN PO 07/26/17 00:15 08/25/17 00:14 Ondansetron HCl (Zofran Inj) 4 mg Q6H PRN IV 07/26/17 00:15 08/25/17 00:14 Nitroglycerin (Nitrostat Tab) 0.4 mg UD PRN SL 07/26/17 00:15 08/25/17 00:14 Polyethylene (Miralax Powder Packet) 17 gm DAILY PRN PO 07/26/17 00:15 08/25/17 00:14 Pantoprazole Sodium (Protonix Tab) 40 mg DAILY PO 07/26/17 09:00 08/25/17 08:59 07/29/17 07:33 40 MG Objective Vital Signs Date Time Temp Pulse Resp B/P (MAP) Pulse Ox O2 Delivery O2 Flow Rate FiO2 07/29/17 08:00 Room Air 07/28/17 23:59 Room Air 07/28/17 16:00 Room Air Physical Exam General Appearance: no apparent distress Respiratory/Chest: + decreased breath sounds Cardiovascular: regular rate, rhythm, no edema, no murmur Abdomen: + distended Extremities: + pedal edema, + swelling, + pertinent finding (+2 pitting edema, upper and lower extremities) Assessment and Plan This is an 81 year old male with a past medical history of severe mitral valve regurgitation s/p mitral valve repair, severe cardiomyopathy/biventricular systolic CHF, EF ~ 15% s/p AICD, 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, paroxysmal atrial fibrillation no longer an anticoagulation candidate, paroxysmal SVTs/PVCs, HTN, HLD, CKD stage 3 - presents with generalized weakness, shortness of breath, decreased appetite and subsequently found to have hyperkalemia, acute kidney injury/hyponatremia/dehydration, hypoglycemia 07/29 - patient is comfort measures only - plan to d/c to hospice facility - [facility] 07/28 - patient is now comfort measures only status - plan to d/c to facility with hospice in AM (07/29) - currently seems comfortable - poor prognosis Hyponatremia/Dehydration Acute Kidney Injury superimposed on CKD stage 3 07/27 - currently still receiving fluids, but difficult situation with worsening creatinine - may need diuretics - palliative care consult for goals of care, code status, etc. 07/26 - likely progression of kidney failure - currently creatinine is 2.7; gentle hydration - will continue gentle hydration for 24 hours and then stop - fluid restriction for hyponatremia - will likely need to restart diuretics in 1-2 days Multiorgan Failure Biventricular Systolic CHF, EF ~15% s/p AICD Liver Failure/Congestive Hepatopathy 07/27 - appreciate cardiology input - currently on Dobutamine - likely cardiorenal; may need diuretics, appreciate nephrology and cardiology input 07/26 - patient with heart failure, liver failure, kidney failure - multiorgan damage - currently he is third spacing, fluid retention in the lower extremities; pulmonary/hepatic congestion - decreased appetite, hyponatremia, kidney injury - likely due to decreased intravascular volume - gentle IV hydration, then diuretics for the heart failure - liver failure - chronic; elevated total bilirubin, elevated INR - consulted palliative care - spoke with about code status; leaning towards DNR; will speak with son as well - patient with mild confusion, unable to discuss in full regarding code status - due to multiorgan failure - hospice should be considered Generalized Weakness/Decreased Appetite Mild Metabolic Encephalopathy secondary to Pneumonia - patient presents with shortness of breath/cough - CXR was repeated this AM on 07/26 - LLL opacity, likely pneumonia - will treat with Rocephin/Doxycycline - mild confusion this AM, but improving; PO intake slight improvement - generalized weakness persists Hypoglycemia - secondary to lack of appetite - giving D5NS - PO intake improving Paroxysmal A. Fib - currently in normal rhythm, rate is controlled - not an anticoagulation candidate - INR is >2 due to hepatic coagulopathy DVT ppx - SCDs, INR >2 Full Code - discussed code status; palliative care consulted for goals of care, code status, and possible hospice at home
[2017-07-29] MEDS ORDERED: ACET-1047 PO (10:27)
[2017-07-29] MEDS ORDERED: SCOP1.5D2 TD (10:27)
[2017-07-29] MEDS ORDERED: LEVA1.255 INH (10:27)
[2017-07-29] MEDS ORDERED: OXYC10SO SL (10:27)
[2017-07-29] MEDS ORDERED: ATROPO SL (10:27)
[2017-07-29] MEDS ORDERED: DOCU-94 PO (10:27)
--- NOTE | 2017-07-29 10:31 | Discharge Instructions ---
Discharge Instructions Date of Service Jul 29, 2017. Admission Reason for Admission: Harish, Hyperkalemia Discharge Discharge Diagnosis / Problem: Heart Failure, Liver Failure, Kidney Failure, Pneumonia Discharge Goals Goal(s): Decrease discomfort, Improve function, Diagnostic testing, Therapeutic intervention Activity Recommendations Activity Limitations: resume your previous activity . Instructions / Follow-Up Instructions / Follow-Up Patient to be discharged on hospice to [facility] We will treat comfort measures and symptomatically, only. Current Hospital Diet Patient's current hospital diet: AHA Diet (Heart Healthy), Low Potassium Diet ( 2g K) Discharge Diet Recommended Diet: Regular Diet Pending Studies Studies pending at discharge: no Laboratory Results Lipid Panel Test 05/24/17 05:46 Range/Units Triglycerides Level 69 0-150 mg/dl Cholesterol Level 102 0-200 mg/dl HDL Cholesterol 17 mg/dl Cholesterol/HDL Ratio 6.0 LDL Cholesterol, Calculated 71 mg/dl Medical Emergencies . Who to Call and When: Medical Emergencies: If at any time you feel your situation is an emergency, please call 911 immediately. . Non-Emergent Contact Non-Emergency issues call your: Primary Care Provider . . "Provider Documentation" section prepared by Radha Ansari. .
--- NOTE | 2017-07-29 10:34 | Discharge Summary ---
Discharge Summary Date of Service Jul 29, 2017. Discharge Summary Admission Date: Jul 26, 2017 at 00:16 Discharge Date: Jul 29, 2017 Discharge Disposition: senior care facility (hospice) Principal Diagnosis: Multiorgan Failure Biventricular Systolic CHF, EF ~15% s/p AICD Liver Failure/Congestive Hepatopathy Hyponatremia/Dehydration Acute Kidney Injury superimposed on CKD stage 3 Generalized Weakness/Decreased Appetite Mild Metabolic Encephalopathy secondary to Pneumonia Hypoglycemia Paroxysmal A. Fib Medication Reconciliation New Medications: Atropine Sulfate (Ophthalmic) (Atropine Sulfate Oph) 1 % Oin 4 DROPS SL Q1H for 10 Days, #1 BTL Docusate Sodium (Colace) 100 Mg Cap 1 CAP PO BID for 15 Days, #30 CAP Levalbuterol Hcl (Levalbuterol) 1.25 Mg/0.5 Ml Neb 1.25 MG INH Q4 PRN for Shortness of Breath for 10 Days, #100 ML Oxycodone Oral Soln (Roxicodone Oral Soln) 5 Mg/5 Ml Soln 5 MG SL Q2H PRN for comfort for 10 Days, #100 Scopolamine (Transderm-Scop) 1 Mg/3 Days Dis 3 MG TD Q72H PRN for Shortness of Breath for 30 Days, #10 PATCH Acetaminophen (Mapap) 325 Mg Tab 650 MG PO Q4H PRN for Pain or Fever for 30 Days, #240 TAB Discontinued Medications: Amoxicillin (Amoxil) 500 Mg Cap 2000 MG PO DIRECTED, CAP take prior to dental procedures Aspirin Enteric Coated (Ecotrin Or Generic) 81 Mg Tab 81 MG PO DAILY, TAB Furosemide (Lasix) 40 Mg Tab 40 MG PO BID, #20 TAB Magnesium Oxide (Magnesium Oxide) 400 Mg Cap 1 CAP PO DAILY for 30 Days, #30 CAP 1 Refill Metoprolol Succinate (Metoprolol Succinate ER) 50 Mg Tabcr 50 MG PO DAILY for 30 Days, #30 2 Refills Omeprazole (Prilosec) 20 Mg Capcr 20 MG PO DAILY, CAP Potassium Chloride (Klor-Con M20) 20 Meq Tabcr 20 MEQ PO QAM, #30 2 Refills Spironolactone (Spironolactone) 25 Mg Tab 12.5 MG PO DAILY, #10 Admission Information HPI (per Admitting provider): DATE OF ADMISSION: 07/25/2017 CHIEF COMPLAINT: Generalized weakness, poor appetite, on and off shortness of breath. HISTORY OF PRESENT ILLNESS: This is an 81-year-old male with past medical history significant for chronic systolic CHF with EF of around 15%, history of paroxysmal ventricular tachycardia, history of hypertension, chronic kidney disease stage III, history of mitral valve regurgitation, hyperlipidemia, hypertension, paroxysmal atrial fibrillation, mitral stenosis, status post ICD, who presents with the weakness, shortness of breath, and poor appetite. The patient says since last 1 week he is not feeling good, is feeling weak and tired, and in last 2 days, he did not eat anything, did not feel like eating, and on and off shortness of breath, but right now he is not feeling short of breath. Denies any fever or chills. He has some dry cough. He denies any headaches, no blurred vision. Hard of hearing, seeing okay. Denies any sore throat or earache. Denies any chest pain, no nausea, no vomiting, no abdominal pain. States his bowel and bladder are moving okay. Says is ambulating okay at home. Lives with his . Denies any skin rash. ALLERGIES: No known drug allergies. PAST MEDICAL HISTORY: As mentioned above. PAST SURGICAL HISTORY: Reconstruction of mitral valve with ring, repair of atrial septal defect with bypass, colonoscopy. MEDICATIONS: The patient is currently on aspirin 81 mg p.o. daily, Lasix 40 mg p.o. b.i.d., magnesium 400 mg p.o. daily, Toprol-XL 50 mg p.o. daily, omeprazole 20 mg p.o. daily, potassium chloride 20 mEq p.o. daily, spironolactone 12.5 mg p.o. daily. FAMILY HISTORY: Significant for father had throat cancer. Mother had heart disorder. Brother had stroke. SOCIAL HISTORY: Former smoker, quit in 1971 but smoked 2 packs a day for 10 years. No alcohol use, no drug use. Lives with his . REVIEW OF SYMPTOMS: As per HPI. Rest of review of systems negative. PHYSICAL EXAMINATION: GENERAL: The patient is somewhat old and frail, not in acute distress. VITAL SIGNS: Temperature 37.2, pulse 95, respiratory rate 20, blood pressure 117/77, oxygen saturation 97% room air. HEENT: No pallor or icterus present. Pupils equal, round, and reactive to light. NECK: No nodes, no JVD, no carotid bruits. CARDIOVASCULAR SYSTEM: S1 and S2 heard, tachycardia. No murmur in the mitral area. RESPIRATORY SYSTEM: Normal AP diameter. No accessory muscle use. No wheezing, no crackles. ABDOMEN: Soft, bowel sounds present. Nontender, no distention. CENTRAL NERVOUS SYSTEM: Cranial nerves II through XII grossly intact. EXTREMITIES: On lower extremities, bilateral pedal edema +2. No erythema seen. LABORATORY DATA: WBC 7.4, hemoglobin 14, hematocrit 46, platelets 242. Sodium 125, potassium 6.3, chloride 89, CO2 of 22, BUN 51, creatinine 2.7, serum glucose 41. Point of care lactic acid 6.2, calcium 0.8, magnesium 2, total bilirubin 7.7, direct bilirubin 5.8, AST 42, ALT 31, alkaline phosphatase 139. Point of care troponin 0.04. Lipase 95. TSH 3.06. PT 22.5, INR 2.2, APTT 23. Chest x-ray shows potential small parenchymal infiltrate, medial left base. EKG with rate of 81, normal sinus rhythm, right bundle-branch block, prolonged QT, no significant changes to previous EKG. ASSESSMENT AND PLAN: This 81-year-old male presents with the generalized weakness, cough, somewhat feeling short of breath, and found to have hyperkalemia, hyponatremia, acute kidney injury, hypoglycemia, and possible pneumonia. We will admit to telemetry floor. 1. Hyperkalemia. The patient was on Lasix and Aldactone before, but the Aldactone was stopped because of rise in creatinine, and it was restarted recently on July 11 and is also on potassium supplements. We will hold his Aldactone and his potassium supplements. Point of care potassium of 6.3. Received IV dextrose, calcium gluconate, and albuterol and insulin. Repeat lab showed 5.1. We will repeat the labs again. On gentle fluids. Consult nephrology in the a.m. 2. Acute kidney injury on chronic kidney disease stage III. Baseline creatinine around 1.5-1.6. Labs showed creatinine of 2.7. Holding diuretics and on gentle fluids. Follow the labs. Consulted Nephrology. 3. Hyponatremia, possibly from congestive heart failure or from diuretics. Holding the diuretics and gentle fluids. Follow the labs in the a.m. Current sodium of 125. 4. Elevated lactic acid, possibly secondary to congestive heart failure and congestive hepatopathy. Does not look like patient has sepsis. Point of care lactic acid 6. but repeat lactic acid is 4.7. Gentle fluids. Follow the repeat lactic acid in am. 5. Possible pneumonia. He has some dry cough and left lower base pulmonary infiltrate. We will empirically start on Rocephin and doxycycline. 6. Hypoglycemia.No appetite since last few days. Says not eating since 2 days. On D5ns. Will monitor. 7. Chronic systolic congestive heart failure with ejection fraction of 15%. Holding the diuretics as above. Continue Toprol-XL with Holding parameters, daily weights. The patient's chest x-ray, there is no congestion. We will closely follow on gentle fluids, watch for volume overload. Consult cardiology for further recommendations. 8. History of paroxysmal atrial fibrillation, ventricular tachycardia, status post pacer defibrillator, history of mitral regurgitation, status post mitral valve repair. The patient's Coumadin was stopped previous admission in May first week because of fall risk and difficult to monitor his Coumadin levels, and also, patient has congestive hepatopathy, CHF, and INR is elevated at 2.2 on this admission, on aspirin and metoprolol. We will monitor on tele floor. 9. Prolonged QT. Avoid QTC prolonging agents, 10.hypertension. Continue metoprolol. Hold on diuretics. Monitor the blood pressure. 11. Congestive hepatopathy. Raise in bilirubin level. elevated INR. Closely monitor for volume overload. Cardiology consulted and await further recommendations. 12. Deep vein thrombosis prophylaxis. SCDs and TEDs.INR is elevated 13. Disposition: Admit to tele floor. PT/OT for discharge. office services assistant to help with discharge planning. May need palliative care consult. 14. Code status. Full code for now. Hospital Course This is an 81 year old male with a past medical history of severe mitral valve regurgitation s/p mitral valve repair, severe cardiomyopathy/biventricular systolic CHF, EF ~ 15% s/p AICD, 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, paroxysmal atrial fibrillation no longer an anticoagulation candidate, paroxysmal SVTs/PVCs, HTN, HLD, CKD stage 3 - presents with generalized weakness, shortness of breath, decreased appetite and subsequently found to have hyperkalemia, acute kidney injury/hyponatremia/dehydration, hypoglycemia 07/29 - patient is comfort measures only - plan to d/c to hospice facility - [facility] 07/28 - patient is now comfort measures only status - plan to d/c to facility with hospice in AM (07/29) - currently seems comfortable - poor prognosis Hyponatremia/Dehydration Acute Kidney Injury superimposed on CKD stage 3 07/27 - currently still receiving fluids, but difficult situation with worsening creatinine - may need diuretics - palliative care consult for goals of care, code status, etc. 07/26 - likely progression of kidney failure - currently creatinine is 2.7; gentle hydration - will continue gentle hydration for 24 hours and then stop - fluid restriction for hyponatremia - will likely need to restart diuretics in 1-2 days Multiorgan Failure Biventricular Systolic CHF, EF ~15% s/p AICD Liver Failure/Congestive Hepatopathy 07/27 - appreciate cardiology input - currently on Dobutamine - likely cardiorenal; may need diuretics, appreciate nephrology and cardiology input 07/26 - patient with heart failure, liver failure, kidney failure - multiorgan damage - currently he is third spacing, fluid retention in the lower extremities; pulmonary/hepatic congestion - decreased appetite, hyponatremia, kidney injury - likely due to decreased intravascular volume - gentle IV hydration, then diuretics for the heart failure - liver failure - chronic; elevated total bilirubin, elevated INR - consulted palliative care - spoke with about code status; leaning towards DNR; will speak with son as well - patient with mild confusion, unable to discuss in full regarding code status - due to multiorgan failure - hospice should be considered Generalized Weakness/Decreased Appetite Mild Metabolic Encephalopathy secondary to Pneumonia - patient presents with shortness of breath/cough - CXR was repeated this AM on 07/26 - LLL opacity, likely pneumonia - will treat with Rocephin/Doxycycline - mild confusion this AM, but improving; PO intake slight improvement - generalized weakness persists Hypoglycemia - secondary to lack of appetite - giving D5NS - PO intake improving Paroxysmal A. Fib - currently in normal rhythm, rate is controlled - not an anticoagulation candidate - INR is >2 due to hepatic coagulopathy DVT ppx - SCDs, INR >2 DNR/DNI Total time spent on discharge = 50 minutes This includes examination of the patient, discharge planning, medication reconciliation, and communication with other providers. Discharge Instructions Patient to be discharged on hospice to [facility] We will treat comfort measures and symptomatically, only.
[2017-07-30] MEDS: PANTOprazole SOD 40 MG TAB PO SCH (07:46)
--- NOTE | 2017-07-30 18:11 | Progress Note ---
Medicine Progress Note Date & Time of Visit: July 30, 2017 at 18:04. Subjective 81-year-old man with multiple medicate medical problems presented with shortness of breath was found to have decompensation of multiple organ systems and was ultimately made comfort care measures. He continues to show signs of confusion and state that he wants to go home again and again. Review of systems was unable to be obtained as a result. Objective Last 8 Hrs Date Time Temp Pulse Resp B/P (MAP) Pulse Ox O2 Delivery O2 Flow Rate FiO2 07/30/17 16:00 Room Air Physical Exam: GEN: WNWD, appears confused and slightly emotionally distressed. Patient is alert HEENT: NC/AT, normal sclerae EXTREMITY: extremities are warm and well-perfused NEURO: CN 2-12 grossly intact, otherwise exam is limited secondary to patient confusion SKIN: warm and dry Assessment & Plan 81-year-old man with multiple medicate medical problems presented with shortness of breath was found to have decompensation of multiple organ systems and was ultimately made comfort care measures. He continues to show signs of confusion and state that he wants to go home again and again. Review of systems was unable to be obtained as a result. 1. Left lower lobe pneumonia number 2. Biventricular CHF with an EF of 15%-awaiting [employer] discontinuation of ICD 3. Liver failure 4. Hyponatremia 5. Dehydration 6. AK I 7. Ambulatory dysfunction with generalized weakness 8. Paroxysmal atrial fibrillation All treatments have been stopped aside from supportive care to make the patient comfortable only. I have discussed the plan with patient who is confused, his , the nurse and the public health social worker. The patient's has reported that she cannot care for him at the home despite having hospice and she currently cannot afford private help which she would need 22/10. We will need PT/OT evaluation today in order to attempt to get him to skilled care in [facility]. At that point he may transition to hospice if this is the route they want to take. All parties are in agreement that this is the plan today will reassess in the morning. DVT prophylaxis-N/a DO NOT RESUSCITATE/comfort care measures only Disposition-to extended care facility within the next 1-2 days with a likely transition to hospice soon thereafter. Judith Meneses DO [facility] hospitalist Current Inpatient Medications: Current Inpatient Medications Medications (Trade) Dose Ordered Sig/Genoveva Route Start Time Stop Time Status Last Admin Dose Admin Acetaminophen (Tylenol Tab) 650 mg Q4H PRN PO 07/26/17 00:15 08/25/17 00:14 Magnesium Hydroxide (Milk Of Magnesia Susp) 30 ml Q12H PRN PO 07/26/17 00:15 08/25/17 00:14 Ondansetron HCl (Zofran Inj) 4 mg Q6H PRN IV 07/26/17 00:15 08/25/17 00:14 Nitroglycerin (Nitrostat Tab) 0.4 mg UD PRN SL 07/26/17 00:15 08/25/17 00:14 Polyethylene (Miralax Powder Packet) 17 gm DAILY PRN PO 07/26/17 00:15 08/25/17 00:14 Pantoprazole Sodium (Protonix Tab) 40 mg DAILY PO 07/26/17 09:00 08/25/17 08:59 07/29/17 07:33 40 MG
[2017-07-30] MEDS ORDERED: CALCIUM CARBONATE 500 MG CHEWABLE PO PRN (18:15)
[2017-07-30] MEDS ORDERED: MoRPHine SULFATE 5 MG/0.25 ML UDP PO PRN (18:15)
[2017-07-30] MEDS ORDERED: LORAZEPAM 0.5 MG TAB PO PRN (18:15)
[2017-07-31 11:32] VITALS: BP 94/63; PULSE 76; TEMP 36.7; O2SAT 99
[2017-07-31] MEDS ORDERED: OXYC10SO PO (15:02)
== END 2017-07-31 15:42 | disposition hospice, inpatient (51) | DRG 441 ==
LOC: EDBD 21:18 → C.EDB 21:20 → C.2T 07-26 00:16 → ENRESERV 07-26 00:48 → C.2T 07-26 19:01 → ENRESERV 07-27 15:51 → C.MS4W 07-27 16:28
PROVIDERS: ADMIT Internal Medicine; ATTEND Hospitalist
DX: K72.90 Hepatic failure, unspecified without coma (principal); J18.9 Pneumonia, unspecified organism; N17.9 Acute kidney failure, unspecified; I13.0 Hypertensive heart and chronic kidney disease with heart failure and stage 1 through stage 4 chronic kidney disease, or unspecified chronic kidney disease; I50.22 Chronic systolic (congestive) heart failure; E87.1 Hypo-osmolality and hyponatremia; G93.41 Metabolic encephalopathy; I42.9 Cardiomyopathy, unspecified; Z51.5 Encounter for palliative care; Z95.810 Presence of automatic (implantable) cardiac defibrillator; E78.5 Hyperlipidemia, unspecified; I48.0 Paroxysmal atrial fibrillation; E87.5 Hyperkalemia; E16.2 Hypoglycemia, unspecified; N18.3 Chronic kidney disease, stage 3 (moderate); K76.1 Chronic passive congestion of liver; E86.0 Dehydration; R29.6 Repeated falls; I34.0 Nonrheumatic mitral (valve) insufficiency; Z87.74 Personal history of (corrected) congenital malformations of heart and circulatory system; I25.10 Atherosclerotic heart disease of native coronary artery without angina pectoris; M19.90 Unspecified osteoarthritis, unspecified site; Z87.891 Personal history of nicotine dependence; Z79.82 Long term (current) use of aspirin